=== PATIENT | male | born 1955 | race Caucasian/White ===

== ENCOUNTER 2018-04-22 08:25 | Emergency (ER) | payer BC, OTHER ==
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
== END 2018-04-22 09:45 | disposition home or self-care (01) ==
LOC: ERS 08:25
DX: S53.402A Unspecified sprain of left elbow, initial encounter (principal); E78.5 Hyperlipidemia, unspecified; I10 Essential (primary) hypertension; K21.9 Gastro-esophageal reflux disease without esophagitis; E11.9 Type 2 diabetes mellitus without complications; Z87.891 Personal history of nicotine dependence; Z79.899 Other long term (current) drug therapy; Z79.84 Long term (current) use of oral hypoglycemic drugs; V89.2XXA Person injured in unspecified motor-vehicle accident, traffic, initial encounter; W22.11XA Striking against or struck by driver side automobile airbag, initial encounter

== ENCOUNTER 2021-02-11 08:36 | Outpatient (CLI) | payer MEDICARE ==
[2021-02-11 12:01] LABS: #Basophils 0.1 10x3/uL (0.0-0.2); #Eosinphils 0.2 10x3/uL (0.0-0.5); #Neutrophils 4.9 10x3/uL (1.5-8.4); %Basophils 0.5 % (0.0-2.0); %Eosinophils 1.7 % (0.0-6.0); %Lymphocytes 32.5 % (18.0-47.0); %Monocytes 10.6 % (0.0-10.0); %Neutrophils 53.6 % (40.0-75.0); Hemoglobin 16.7 g/dL (13.5-17.5); Mean Corpuscular HGB CONC 33.6 g/dL (32.0-36.0); Mean Corpuscular Hemoglobin 32.6 pg (27.0-33.0); Mean Corpuscular Volume 96.9 fl (81.2-95.1); Mean Platelet Volume 10.7 fl (7.4-10.4); Platelet Count 244 10x3/uL (150-450); RBC Distribution Width 11.5 % (11.5-14.5); Red Blood Cell (RBC) Count 5.13 10x6/uL (4.32-5.72); White Blood Cell (WBC) Count 9.2 10x3/uL (3.5-10.5)
[2021-02-11 12:20] LABS: Anion Gap 16 mmol/L (10-20); BUN (Urea Nitrogen) 17 mg/dL (8.4-25.7); Calc. Creatinine Clearance 0 mL/min (70-130); Calcium 10.1 mg/dL (7.8-10.44); Carbon Dioxide 27 mmol/L (23-31); Chloride 99 mmol/L (98-107); Glucose 152 mg/dL (80-115); Potassium 5.2 mmol/L (3.5-5.1); Sodium 137 mmol/L (136-145)
[2021-02-12 12:53] LABS: SARS-CoV-2 PCR by NAA Not Detected (NotDetected)
== END 2021-02-11 08:37 | disposition home or self-care (01) ==
LOC: LABBT 08:36
PROVIDERS: ATTEND Specialist
DX: Z01.818 Encounter for other preprocedural examination (principal); K42.9 Umbilical hernia without obstruction or gangrene; Z20.822 Contact with and (suspected) exposure to COVID-19
CPT/HCPCS: 80048; 85025; 93005; U0003; U0005; 93010

== ENCOUNTER 2021-02-16 10:06 | Day surgery (SDC) | payer MEDICARE ==
[2021-02-15 10:41] VITALS: BMI 34.7
[2021-02-16] MEDS ORDERED: Gabapentin 300 MG CAP ONE (10:25)
[2021-02-16] MEDS ORDERED: Ketorolac Tromethamine 30 MG/ML VIAL ONE (10:26)
[2021-02-16] MEDS ORDERED: Acetaminophen 500 MG TAB ONE (10:26)
[2021-02-16] MEDS ORDERED: Bupivacaine 0.25% HCL 30 ML VIAL ONE (10:49)
[2021-02-16] MEDS ORDERED: Lidocaine 1% w/Epinephrine 1:100K 20 ML VIAL ONE (10:49)
[2021-02-16] MEDS ORDERED: Fentanyl 100 MCG/2 ML VIAL ONE (11:19)
[2021-02-16] MEDS ORDERED: Glycopyrrolate 0.2 MG/ML 5 ML SYRINGE ONE (11:55)
[2021-02-16] MEDS ORDERED: Lidocaine 1% PF 5 ML VIAL ONE (11:55)
[2021-02-16] MEDS ORDERED: Rocuronium Bromide 10 MG/ML (10ML VIAL) ONE (11:55)
[2021-02-16] MEDS ORDERED: Dexamethasone 20 MG/5 ML VIAL ONE (11:55)
[2021-02-16] MEDS ORDERED: Ondansetron PF 4 MG/2 ML Vial ONE (11:55)
[2021-02-16] MEDS ORDERED: HYDROcodone/Acetaminophen 5/325 mg Tablet ONE (15:08)
== END 2021-02-16 15:35 | disposition home or self-care (01) ==
LOC: SDC 10:06
PROVIDERS: ATTEND Specialist
PROC: 0WUF4JZ Supplement Abdominal Wall with Synthetic Substitute, Percutaneous Endoscopic Approach (ICD-10-PCS; principal; 2021-02-16)
DX: K42.9 Umbilical hernia without obstruction or gangrene (principal); I10 Essential (primary) hypertension; E78.5 Hyperlipidemia, unspecified; E11.9 Type 2 diabetes mellitus without complications; E66.9 Obesity, unspecified; Z68.34 Body mass index [BMI] 34.0-34.9, adult; Z87.891 Personal history of nicotine dependence; Z79.84 Long term (current) use of oral hypoglycemic drugs; Z79.899 Other long term (current) drug therapy
CPT/HCPCS: C1781; J0690; J1100; J1885; J2405; J3010; S0020

== ENCOUNTER 2021-08-16 17:19 | Inpatient (IN) | payer MEDICARE ==
[2021-08-16] MEDS ORDERED: Acetaminophen 500 MG TAB ONE (17:38)
[2021-08-16] MEDS ORDERED: Ondansetron PF 4 MG/2 ML Vial ONE (17:38)
[2021-08-16] MEDS ORDERED: Dexamethasone 10 MG/ML VIAL ONE (17:38)
[2021-08-16 17:53] LABS: #Basophils 0.1 thou/uL (0.0-0.2); #Lymphocytes 1.2 thou/uL (1.20-3.40); #Neutrophils 8.1 thou/uL (1.40-6.50); %Basophils 0.5 % (0.0-1.0); %Eosinophils 0.1 % (0.0-10.0); %Lymphocytes 11.4 % (21.0-51.0); %Monocytes 9.3 % (0.0-10.0); %Neutrophils 78.7 % (42.0-75.0); Hemoglobin 16.8 g/dL (14.0-18.0); Mean Corpuscular HGB CONC 34.1 g/dL (32.0-36.0); Mean Corpuscular Hemoglobin 32.6 pg (27.0-31.0); Mean Corpuscular Volume 95.7 fL (78.0-98.0); Mean Platelet Volume 8.3 fL (7.4-10.4); Platelet Count 155 thou/uL (130-400); RBC Distribution Width 11.3 % (11.5-14.5); Red Blood Cell (RBC) Count 5.13 mill/uL (4.70-6.10); White Blood Cell (WBC) Count 10.3 thou/uL (4.8-10.8)
[2021-08-16 18:09] LABS: Actual Bicarbonate (HCO3v) 16 mEq/L (22-28); Analyzer IN Cardio ER; Base Excess -6.3 mEq/L (-2.0 to +3.0); Calcium, Ionized (venous) 0.99 mmol/L (1.16-1.32); Chloride (VBG) 89 mmol/L (98-106); Hemoglobin (Hb) 16.9 g/dL (12.6-17.4); Potassium (VBG) 4.42 mmol/L (3.70-5.30); Sodium 121.5 mmol/L (133-146); pH (venous) 7.41 (7.32-7.43)
[2021-08-16 18:16] LABS: ALT (SGPT) 29 U/L (8-55); AST (SGOT) 54 U/L (5-34); Albumin 3.9 g/dL (3.4-4.8); Alkaline Phosphatase 38 U/L (40-110); Anion Gap 19 mmol/L (10-20); BUN (Urea Nitrogen) 56 mg/dL (8.4-25.7); Bilirubin, Total 0.7 mg/dL (0.2-1.2); Calc. Creatinine Clearance 0 mL/min (70-130); Calcium 8.7 mg/dL (7.8-10.44); Carbon Dioxide 18 mmol/L (23-31); Chloride 91 mmol/L (98-107); Glucose 118 mg/dL (80-115); Magnesium 2.1 mg/dL (1.6-2.6); Potassium 4.9 mmol/L (3.5-5.1); Protein, Total 6.9 g/dL (5.8-8.1); Sodium 123 mmol/L (136-145)
[2021-08-16] MEDS ORDERED: Enoxaparin Sodium 100 MG/ML SYRINGE ONE (19:18)
[2021-08-16 19:37] LABS: SARS-CoV-2 NAA Rapid Test DETECTED (NotDetected)
[2021-08-16] MEDS ORDERED: Calcium Carbonate 500 MG ChewTAB PO PRN (19:45)
[2021-08-16] MEDS ORDERED: Ondansetron ODT 4 MG TAB PO PRN (19:45)
[2021-08-16] MEDS ORDERED: Dextrose 5% in Water 1,000 ML IV PRN (19:45)
[2021-08-16] MEDS ORDERED: Acetaminophen 650 MG Suppository PR PRN (19:45)
[2021-08-16] MEDS: Lactated Ringer's 1,000 ML IV SCH (21:38)
[2021-08-17] MEDS: Lactated Ringer's 1,000 ML IV SCH ×4 (04:45→21:37)
[2021-08-17] MEDS: HumaLOG 300 UNITS/3 ML VIAL SC PRN ×4 (05:46→21:39)
[2021-08-17 08:16] LABS: #Monocytes 0.5 thou/uL (0.11-0.59); %Basophils 0.2 % (0.0-1.0); %Eosinophils 0.6 % (0.0-10.0); %Lymphocytes 14.8 % (21.0-51.0); %Monocytes 7.6 % (0.0-10.0); %Neutrophils 76.7 % (42.0-75.0); Hemoglobin 15.7 g/dL (14.0-18.0); Mean Corpuscular HGB CONC 35.1 g/dL (32.0-36.0); Mean Corpuscular Hemoglobin 33.6 pg (27.0-31.0); Mean Corpuscular Volume 95.7 fL (78.0-98.0); Mean Platelet Volume 8.3 fL (7.4-10.4); Platelet Count 163 thou/uL (130-400); RBC Distribution Width 11.4 % (11.5-14.5); Red Blood Cell (RBC) Count 4.66 mill/uL (4.70-6.10); White Blood Cell (WBC) Count 6.5 thou/uL (4.8-10.8)
[2021-08-17 08:35] LABS: ALT (SGPT) 27 U/L (8-55); AST (SGOT) 45 U/L (5-34); Albumin 3.4 g/dL (3.4-4.8); Alkaline Phosphatase 34 U/L (40-110); Anion Gap 22 mmol/L (10-20); BUN (Urea Nitrogen) 60 mg/dL (8.4-25.7); Bilirubin, Total 0.5 mg/dL (0.2-1.2); Calc. Creatinine Clearance 40 mL/min (70-130); Calcium 8.6 mg/dL (7.8-10.44); Carbon Dioxide 12 mmol/L (23-31); Chloride 98 mmol/L (98-107); Globulin 3.5 g/dL (2.4-3.5); Glucose 248 mg/dL (80-115); Potassium 4.8 mmol/L (3.5-5.1); Protein, Total 6.9 g/dL (5.8-8.1); Sodium 127 mmol/L (136-145)
[2021-08-17] MEDS: Dexamethasone 4 MG TAB PO SCH (08:37)
[2021-08-17] MEDS: Enoxaparin Sodium 40 MG/0.4 ML SYRINGE SC SCH (08:38)
[2021-08-17] MEDS: guaiFENesin/Codeine 200 mg/20 mg 10 ml Cup PO PRN ×2 (12:58→18:28)
[2021-08-17] MEDS: Acetaminophen 325 MG TAB PO PRN (13:00)
[2021-08-17] MEDS: Atorvastatin Calcium 20 MG TAB PO SCH (21:30)
[2021-08-18] MEDS: guaiFENesin/Codeine 200 mg/20 mg 10 ml Cup PO PRN ×3 (00:05→21:29)
[2021-08-18] MEDS: Acetaminophen 325 MG TAB PO PRN ×3 (00:20→17:59)
[2021-08-18] MEDS: Albuterol 200 PUFF (6.7GM INHALER) INH PRN (05:56)
[2021-08-18] MEDS: HumaLOG 300 UNITS/3 ML VIAL SC PRN ×3 (05:57→17:59)
[2021-08-18] MEDS: Lactated Ringer's 1,000 ML IV SCH ×2 (06:02→13:23)
[2021-08-18 07:40] LABS: Hemoglobin 14.9 g/dL (14.0-18.0); Mean Corpuscular HGB CONC 33.6 g/dL (32.0-36.0); Mean Corpuscular Hemoglobin 32.6 pg (27.0-31.0); Mean Corpuscular Volume 96.9 fL (78.0-98.0); Mean Platelet Volume 7.6 fL (7.4-10.4); Platelet Count 210 thou/uL (130-400); RBC Distribution Width 11.4 % (11.5-14.5); Red Blood Cell (RBC) Count 4.59 mill/uL (4.70-6.10); White Blood Cell (WBC) Count 14.1 thou/uL (4.8-10.8)
[2021-08-18 07:48] LABS: ALT (SGPT) 26 U/L (8-55); AST (SGOT) 48 U/L (5-34); Albumin 3.2 g/dL (3.4-4.8); Alkaline Phosphatase 39 U/L (40-110); Anion Gap 18 mmol/L (10-20); BUN (Urea Nitrogen) 38 mg/dL (8.4-25.7); Bilirubin, Total 0.6 mg/dL (0.2-1.2); Calc. Creatinine Clearance 65 mL/min (70-130); Carbon Dioxide 19 mmol/L (23-31); Chloride 99 mmol/L (98-107); Globulin 3.3 g/dL (2.4-3.5); Glucose 215 mg/dL (80-115); Potassium 4.6 mmol/L (3.5-5.1); Protein, Total 6.5 g/dL (5.8-8.1); Sodium 131 mmol/L (136-145)
[2021-08-18 08:40] LABS: Band 33 % (5-11); Lymphocytes 6 % (21-51); MDiff Complete? YES; Monocytes 2 % (0-10); Neutrophil 55 % (42-75); Platelet Morphology Comment Appears Adequate; RBC Morphology Normal; Reactive Lymphocytes 4 % (0-10)
[2021-08-18] MEDS: Dexamethasone 4 MG TAB PO SCH (09:40)
[2021-08-18] MEDS: Enoxaparin Sodium 40 MG/0.4 ML SYRINGE SC SCH (09:41)
[2021-08-18] MEDS ORDERED: REMDESIVIR 200 MG in Sodium Chloride 0.9% 250 ML 210 ML IV SCH (13:00)
[2021-08-18] MEDS ORDERED: BARICITINIB 2 MG TAB PO SCH (14:00)
[2021-08-18] MEDS: Atorvastatin Calcium 20 MG TAB PO SCH (21:29)
[2021-08-18] MEDS ORDERED: diphenhydrAMINE 25 MG CAP PO PRN (22:53)
[2021-08-19 03:27] LABS: #Lymphocytes 0.7 thou/uL (1.20-3.40); #Monocytes 0.7 thou/uL (0.11-0.59); #Neutrophils 12.7 thou/uL (1.40-6.50); %Eosinophils 0.1 % (0.0-10.0); %Lymphocytes 5.2 % (21.0-51.0); %Monocytes 4.7 % (0.0-10.0); Hemoglobin 15.4 g/dL (14.0-18.0); Mean Corpuscular HGB CONC 33.9 g/dL (32.0-36.0); Mean Corpuscular Hemoglobin 33.7 pg (27.0-31.0); Mean Corpuscular Volume 99.5 fL (78.0-98.0); Mean Platelet Volume 7.2 fL (7.4-10.4); Platelet Count 248 thou/uL (130-400); RBC Distribution Width 11.6 % (11.5-14.5); Red Blood Cell (RBC) Count 4.58 mill/uL (4.70-6.10); White Blood Cell (WBC) Count 14.1 thou/uL (4.8-10.8)
[2021-08-19 03:49] LABS: ALT (SGPT) 25 U/L (8-55); AST (SGOT) 48 U/L (5-34); Albumin 3.4 g/dL (3.4-4.8); Alkaline Phosphatase 51 U/L (40-110); Anion Gap 17 mmol/L (10-20); BUN (Urea Nitrogen) 30 mg/dL (8.4-25.7); Bilirubin, Direct 0.4 mg/dL (0.1-0.3); Bilirubin, Total 0.7 mg/dL (0.2-1.2); Calc. Creatinine Clearance 88 mL/min (70-130); Calcium 9.1 mg/dL (7.8-10.44); Carbon Dioxide 23 mmol/L (23-31); Chloride 102 mmol/L (98-107); Globulin 3.3 g/dL (2.4-3.5); Glucose 179 mg/dL (80-115); Potassium 4.6 mmol/L (3.5-5.1); Protein, Total 6.7 g/dL (5.8-8.1); Sodium 137 mmol/L (136-145)
[2021-08-19] MEDS: Lactated Ringer's 1,000 ML IV SCH ×2 (04:32→04:33)
[2021-08-19] MEDS: HumaLOG 300 UNITS/3 ML VIAL SC PRN ×3 (05:52→15:52)
[2021-08-19] MEDS ORDERED: Sodium Chloride 0.65% Nasal 44 ML BOT EA NARE PRN (08:23)
[2021-08-19] MEDS ORDERED: Lorazepam 0.5 MG TAB PO PRN (08:24)
[2021-08-19] MEDS ORDERED: Lantus 1000 UNITS/10 ML VIAL SC SCH (09:00)
[2021-08-19] MEDS: REMDESIVIR 100 MG in Sodium Chloride 0.9% 250 ML 230 ML IV SCH (09:56)
[2021-08-19] MEDS: Enoxaparin Sodium 40 MG/0.4 ML SYRINGE SC SCH (09:58)
[2021-08-19] MEDS: BARICITINIB 2 MG TAB PO SCH (09:58)
[2021-08-19] MEDS ORDERED: Dexamethasone 4 mg/ml Vial ONE (10:05)
[2021-08-19] MEDS: Dexamethasone 4 MG TAB PO SCH (10:18)
[2021-08-19] MEDS ORDERED: Polyvinyl Alcohol 1.4%/Povidone 0.6% Opth Drops EA EYE PRN (12:52)
[2021-08-19] MEDS: Lantus 1000 UNITS/10 ML VIAL SC SCH ×2 (14:45→16:08)
[2021-08-19] MEDS: Atorvastatin Calcium 20 MG TAB PO SCH (20:05)
[2021-08-19] MEDS: diphenhydrAMINE 25 MG CAP PO SCH (20:05)
[2021-08-19] MEDS: Melatonin 3 MG TAB PO SCH (20:05)
[2021-08-19] MEDS: Acetaminophen 325 MG TAB PO PRN (23:38)
[2021-08-19] MEDS: guaiFENesin/Codeine 200 mg/20 mg 10 ml Cup PO PRN (23:53)
[2021-08-20 04:56] LABS: ALT (SGPT) 39 U/L (8-55); AST (SGOT) 48 U/L (5-34); Albumin 3.2 g/dL (3.4-4.8); Alkaline Phosphatase 60 U/L (40-110); Anion Gap 17 mmol/L (10-20); BUN (Urea Nitrogen) 34 mg/dL (8.4-25.7); Bilirubin, Total 0.7 mg/dL (0.2-1.2); Calc. Creatinine Clearance 86 mL/min (70-130); Calcium 9.4 mg/dL (7.8-10.44); Carbon Dioxide 22 mmol/L (23-31); Chloride 103 mmol/L (98-107); Globulin 3.4 g/dL (2.4-3.5); Glucose 221 mg/dL (80-115); Potassium 4.6 mmol/L (3.5-5.1); Protein, Total 6.6 g/dL (5.8-8.1); Sodium 137 mmol/L (136-145)
[2021-08-20 05:33] LABS: Band 14 % (5-11); Hemoglobin 15.3 g/dL (14.0-18.0); Lymphocytes 10 % (21-51); MDiff Complete? YES; Macrocytosis SLIGHT = 6-15 cells (100X) (0-5/hpf); Mean Corpuscular HGB CONC 33.7 g/dL (32.0-36.0); Mean Corpuscular Hemoglobin 33.5 pg (27.0-31.0); Mean Corpuscular Volume 99.4 fL (78.0-98.0); Mean Platelet Volume 7.2 fL (7.4-10.4); Monocytes 5 % (0-10); Myelocyte 1 % (0-0); Neutrophil 70 % (42-75); Platelet Count 275 thou/uL (130-400); Platelet Morphology Comment Appears Adequate; RBC Distribution Width 11.5 % (11.5-14.5); Red Blood Cell (RBC) Count 4.58 mill/uL (4.70-6.10); Schistocytes SLIGHT = 2-5 cells (100X) (0-1/hpf); Tear Drops SLIGHT = 2-5 cells (100X) (0-1/hpf); White Blood Cell (WBC) Count 10.5 thou/uL (4.8-10.8)
[2021-08-20] MEDS: HumaLOG 300 UNITS/3 ML VIAL SC PRN ×4 (06:12→20:46)
[2021-08-20] MEDS: Dexamethasone 4 MG TAB PO SCH (08:42)
[2021-08-20] MEDS: Lisinopril/Hydrochlorothiazide 20 mg/12.5 mg Tablet PO SCH (08:43)
[2021-08-20] MEDS: Enoxaparin Sodium 40 MG/0.4 ML SYRINGE SC SCH (08:43)
[2021-08-20] MEDS: BARICITINIB 2 MG TAB PO SCH (08:43)
[2021-08-20] MEDS: REMDESIVIR 100 MG in Sodium Chloride 0.9% 250 ML 230 ML IV SCH (08:44)
[2021-08-20] MEDS ORDERED: Lantus 1000 UNITS/10 ML VIAL SC SCH (16:00)
[2021-08-20] MEDS: Atorvastatin Calcium 20 MG TAB PO SCH (20:36)
[2021-08-20] MEDS: diphenhydrAMINE 25 MG CAP PO SCH (20:36)
[2021-08-20] MEDS: Melatonin 3 MG TAB PO SCH (20:37)
[2021-08-20] MEDS: Acetaminophen 325 MG TAB PO PRN (20:37)
[2021-08-21 03:31] LABS: #Basophils 0.1 thou/uL (0.0-0.2); #Lymphocytes 1.2 thou/uL (1.20-3.40); #Neutrophils 12.8 thou/uL (1.40-6.50); %Basophils 0.4 % (0.0-1.0); %Eosinophils 0.2 % (0.0-10.0); %Lymphocytes 7.7 % (21.0-51.0); %Monocytes 6.4 % (0.0-10.0); %Neutrophils 85.3 % (42.0-75.0); Hemoglobin 17.4 g/dL (14.0-18.0); Mean Corpuscular HGB CONC 34.1 g/dL (32.0-36.0); Mean Corpuscular Hemoglobin 33.9 pg (27.0-31.0); Mean Corpuscular Volume 99.3 fL (78.0-98.0); Mean Platelet Volume 7.1 fL (7.4-10.4); Platelet Count 248 thou/uL (130-400); RBC Distribution Width 11.7 % (11.5-14.5); Red Blood Cell (RBC) Count 5.15 mill/uL (4.70-6.10)
[2021-08-21 03:47] LABS: ALT (SGPT) 45 U/L (8-55); AST (SGOT) 45 U/L (5-34); Albumin 3.4 g/dL (3.4-4.8); Alkaline Phosphatase 75 U/L (40-110); Anion Gap 16 mmol/L (10-20); BUN (Urea Nitrogen) 31 mg/dL (8.4-25.7); Bilirubin, Total 0.9 mg/dL (0.2-1.2); Calc. Creatinine Clearance 95 mL/min (70-130); Calcium 9.3 mg/dL (7.8-10.44); Carbon Dioxide 23 mmol/L (23-31); Chloride 100 mmol/L (98-107); Globulin 3.4 g/dL (2.4-3.5); Glucose 184 mg/dL (80-115); Potassium 4.2 mmol/L (3.5-5.1); Protein, Total 6.8 g/dL (5.8-8.1); Sodium 135 mmol/L (136-145)
[2021-08-21] MEDS: guaiFENesin/Codeine 200 mg/20 mg 10 ml Cup PO PRN ×2 (04:00→20:30)
[2021-08-21] MEDS: HumaLOG 300 UNITS/3 ML VIAL SC PRN ×4 (06:16→20:19)
[2021-08-21] MEDS: Lisinopril/Hydrochlorothiazide 20 mg/12.5 mg Tablet PO SCH (08:34)
[2021-08-21] MEDS: REMDESIVIR 100 MG in Sodium Chloride 0.9% 250 ML 230 ML IV SCH (08:34)
[2021-08-21] MEDS: BARICITINIB 2 MG TAB PO SCH (08:34)
[2021-08-21] MEDS: Dexamethasone 4 MG TAB PO SCH (08:35)
[2021-08-21] MEDS: Acetaminophen 325 MG TAB PO PRN ×3 (08:36→20:17)
[2021-08-21] MEDS: Enoxaparin Sodium 40 MG/0.4 ML SYRINGE SC SCH (08:37)
[2021-08-21] MEDS ORDERED: Lantus 1000 UNITS/10 ML VIAL SC SCH (09:00)
[2021-08-21] MEDS ORDERED: Cyclobenzaprine 10 MG TAB PO SCH (12:15)
[2021-08-21] MEDS: diphenhydrAMINE 25 MG CAP PO SCH (20:17)
[2021-08-21] MEDS: Atorvastatin Calcium 20 MG TAB PO SCH (20:17)
[2021-08-21] MEDS: Melatonin 3 MG TAB PO SCH (20:17)
[2021-08-22] MEDS: Acetaminophen 325 MG TAB PO PRN ×2 (02:13→07:57)
[2021-08-22] MEDS: HumaLOG 300 UNITS/3 ML VIAL SC PRN ×4 (06:26→20:01)
[2021-08-22 07:27] LABS: #Eosinphils 0.1 thou/uL (0.0-0.7); #Lymphocytes 1.2 thou/uL (1.20-3.40); #Monocytes 0.2 thou/uL (0.11-0.59); #Neutrophils 14.2 thou/uL (1.40-6.50); %Eosinophils 0.6 % (0.0-10.0); %Lymphocytes 7.8 % (21.0-51.0); %Monocytes 1.5 % (0.0-10.0); %Neutrophils 90.2 % (42.0-75.0); Hemoglobin 16.9 g/dL (14.0-18.0); Mean Corpuscular HGB CONC 34.1 g/dL (32.0-36.0); Mean Corpuscular Volume 99.9 fL (78.0-98.0); Mean Platelet Volume 7.3 fL (7.4-10.4); Platelet Count 171 thou/uL (130-400); RBC Distribution Width 11.4 % (11.5-14.5); Red Blood Cell (RBC) Count 4.98 mill/uL (4.70-6.10); White Blood Cell (WBC) Count 15.7 thou/uL (4.8-10.8)
[2021-08-22] MEDS: Enoxaparin Sodium 40 MG/0.4 ML SYRINGE SC SCH (07:41)
[2021-08-22] MEDS: REMDESIVIR 100 MG in Sodium Chloride 0.9% 250 ML 230 ML IV SCH (07:41)
[2021-08-22] MEDS: Lisinopril/Hydrochlorothiazide 20 mg/12.5 mg Tablet PO SCH (07:41)
[2021-08-22] MEDS: BARICITINIB 2 MG TAB PO SCH (07:41)
[2021-08-22] MEDS: Dexamethasone 4 MG TAB PO SCH ×2 (07:41→20:01)
[2021-08-22] MEDS: Lantus 1000 UNITS/10 ML VIAL SC SCH (07:45)
[2021-08-22 07:49] LABS: ALT (SGPT) 50 U/L (8-55); AST (SGOT) 46 U/L (5-34); Albumin 3.4 g/dL (3.4-4.8); Alkaline Phosphatase 76 U/L (40-110); Anion Gap 14 mmol/L (10-20); BUN (Urea Nitrogen) 28 mg/dL (8.4-25.7); Bilirubin, Direct 0.6 mg/dL (0.1-0.3); Bilirubin, Total 1.1 mg/dL (0.2-1.2); Calc. Creatinine Clearance 90 mL/min (70-130); Calcium 9.3 mg/dL (7.8-10.44); Carbon Dioxide 25 mmol/L (23-31); Chloride 95 mmol/L (98-107); Globulin 3.7 g/dL (2.4-3.5); Glucose 213 mg/dL (80-115); Potassium 4.6 mmol/L (3.5-5.1); Protein, Total 7.1 g/dL (5.8-8.1); Sodium 129 mmol/L (136-145)
[2021-08-22] MEDS ORDERED: Dexamethasone 4 MG TAB PO SCH ×3 (08:00→11:00)
[2021-08-22] MEDS: Atorvastatin Calcium 20 MG TAB PO SCH (20:00)
[2021-08-22] MEDS: guaiFENesin/Codeine 200 mg/20 mg 10 ml Cup PO PRN (20:00)
[2021-08-22] MEDS: Melatonin 3 MG TAB PO SCH (20:01)
[2021-08-22] MEDS: diphenhydrAMINE 25 MG CAP PO SCH (20:01)
[2021-08-23 04:17] LABS: #Eosinphils 0.1 thou/uL (0.0-0.7); #Lymphocytes 0.9 thou/uL (1.20-3.40); #Monocytes 0.3 thou/uL (0.11-0.59); #Neutrophils 14.3 thou/uL (1.40-6.50); %Basophils 0.3 % (0.0-1.0); %Eosinophils 0.5 % (0.0-10.0); %Lymphocytes 5.4 % (21.0-51.0); %Neutrophils 91.8 % (42.0-75.0); Hemoglobin 17.2 g/dL (14.0-18.0); Mean Corpuscular HGB CONC 33.9 g/dL (32.0-36.0); Mean Corpuscular Hemoglobin 33.7 pg (27.0-31.0); Mean Corpuscular Volume 99.4 fL (78.0-98.0); Mean Platelet Volume 7.7 fL (7.4-10.4); Platelet Count 137 thou/uL (130-400); RBC Distribution Width 11.3 % (11.5-14.5); White Blood Cell (WBC) Count 15.6 thou/uL (4.8-10.8)
[2021-08-23 04:44] LABS: ALT (SGPT) 38 U/L (8-55); AST (SGOT) 29 U/L (5-34); Albumin 3.1 g/dL (3.4-4.8); Alkaline Phosphatase 61 U/L (40-110); Anion Gap 17 mmol/L (10-20); BUN (Urea Nitrogen) 26 mg/dL (8.4-25.7); Bilirubin, Total 0.9 mg/dL (0.2-1.2); Calc. Creatinine Clearance 103 mL/min (70-130); Calcium 9.1 mg/dL (7.8-10.44); Carbon Dioxide 23 mmol/L (23-31); Chloride 95 mmol/L (98-107); Globulin 3.8 g/dL (2.4-3.5); Glucose 211 mg/dL (80-115); Potassium 4.8 mmol/L (3.5-5.1); Protein, Total 6.9 g/dL (5.8-8.1); Sodium 130 mmol/L (136-145)
[2021-08-23] MEDS: HumaLOG 300 UNITS/3 ML VIAL SC PRN ×2 (05:54→21:14)
[2021-08-23] MEDS: Dexamethasone 4 MG TAB PO SCH ×2 (07:49→21:13)
[2021-08-23] MEDS: Lisinopril 20 MG TAB PO SCH (07:49)
[2021-08-23] MEDS: BARICITINIB 2 MG TAB PO SCH (07:49)
[2021-08-23] MEDS: Lantus 1000 UNITS/10 ML VIAL SC SCH (07:50)
[2021-08-23] MEDS: Acetaminophen 325 MG TAB PO PRN (07:50)
[2021-08-23] MEDS: Enoxaparin Sodium 40 MG/0.4 ML SYRINGE SC SCH (07:50)
[2021-08-23] MEDS ORDERED: Polyethylene Glycol 3350 17 GM Packet PO PRN (09:55)
[2021-08-23] MEDS: HumaLOG 300 UNITS/3 ML VIAL SC SCH ×2 (11:31→16:46)
[2021-08-23] MEDS: guaiFENesin/Codeine 200 mg/20 mg 10 ml Cup PO PRN ×2 (12:10→21:13)
[2021-08-23] MEDS: diphenhydrAMINE 25 MG CAP PO SCH (21:13)
[2021-08-23] MEDS: Melatonin 3 MG TAB PO SCH (21:13)
[2021-08-23] MEDS: Senokot S 8.6-50 MG TAB PO SCH (21:13)
[2021-08-23] MEDS: Atorvastatin Calcium 20 MG TAB PO SCH (21:13)
[2021-08-24 04:52] LABS: ALT (SGPT) 32 U/L (8-55); AST (SGOT) 23 U/L (5-34); Alkaline Phosphatase 57 U/L (40-110); Anion Gap 14 mmol/L (10-20); BUN (Urea Nitrogen) 30 mg/dL (8.4-25.7); Band 5 % (5-11); Bilirubin, Total 0.6 mg/dL (0.2-1.2); Calc. Creatinine Clearance 98 mL/min (70-130); Calcium 8.9 mg/dL (7.8-10.44); Carbon Dioxide 25 mmol/L (23-31); Chloride 94 mmol/L (98-107); Globulin 3.6 g/dL (2.4-3.5); Glucose 240 mg/dL (80-115); Lymphocytes 4 % (21-51); MDiff Complete? YES; Mean Corpuscular HGB CONC 33.4 g/dL (32.0-36.0); Mean Corpuscular Hemoglobin 33.2 pg (27.0-31.0); Mean Corpuscular Volume 99.4 fL (78.0-98.0); Mean Platelet Volume 7.8 fL (7.4-10.4); Monocytes 2 % (0-10); Myelocyte 1 % (0-0); Neutrophil 88 % (42-75); Platelet Count 186 thou/uL (130-400); Platelet Morphology Comment Appears Adequate; Potassium 5.1 mmol/L (3.5-5.1); Protein, Total 6.6 g/dL (5.8-8.1); RBC Distribution Width 11.4 % (11.5-14.5); RBC Morphology Normal; Red Blood Cell (RBC) Count 4.82 mill/uL (4.70-6.10); Sodium 128 mmol/L (136-145); White Blood Cell (WBC) Count 17.7 thou/uL (4.8-10.8)
[2021-08-24] MEDS: HumaLOG 300 UNITS/3 ML VIAL SC PRN ×3 (06:07→20:19)
[2021-08-24] MEDS ORDERED: Lantus 1000 UNITS/10 ML VIAL SC SCH (09:00)
[2021-08-24] MEDS: Senokot S 8.6-50 MG TAB PO SCH ×3 (09:00→20:35)
[2021-08-24] MEDS: HumaLOG 300 UNITS/3 ML VIAL SC SCH ×3 (09:29→16:22)
[2021-08-24] MEDS: BARICITINIB 2 MG TAB PO SCH (09:30)
[2021-08-24] MEDS: Lisinopril 20 MG TAB PO SCH (09:31)
[2021-08-24] MEDS: Enoxaparin Sodium 40 MG/0.4 ML SYRINGE SC SCH (09:33)
[2021-08-24] MEDS: Dexamethasone 4 MG TAB PO SCH ×2 (09:36→20:19)
[2021-08-24] MEDS: guaiFENesin/Codeine 200 mg/20 mg 10 ml Cup PO PRN (11:44)
[2021-08-24] MEDS: Acetaminophen 325 MG TAB PO PRN (18:23)
[2021-08-24] MEDS: Melatonin 3 MG TAB PO SCH (20:18)
[2021-08-24] MEDS: Atorvastatin Calcium 20 MG TAB PO SCH (20:18)
[2021-08-24] MEDS: diphenhydrAMINE 25 MG CAP PO SCH (20:19)
[2021-08-25 04:12] LABS: #Lymphocytes 0.7 thou/uL (1.20-3.40); #Monocytes 0.5 thou/uL (0.11-0.59); #Neutrophils 14.8 thou/uL (1.40-6.50); %Basophils 0.2 % (0.0-1.0); %Eosinophils 0.2 % (0.0-10.0); %Lymphocytes 4.6 % (21.0-51.0); %Monocytes 3.1 % (0.0-10.0); %Neutrophils 91.9 % (42.0-75.0); Hemoglobin 16.2 g/dL (14.0-18.0); Mean Corpuscular HGB CONC 32.6 g/dL (32.0-36.0); Mean Corpuscular Hemoglobin 32.4 pg (27.0-31.0); Mean Corpuscular Volume 99.5 fL (78.0-98.0); Mean Platelet Volume 7.9 fL (7.4-10.4); Platelet Count 195 thou/uL (130-400); RBC Distribution Width 11.3 % (11.5-14.5); White Blood Cell (WBC) Count 16.1 thou/uL (4.8-10.8)
[2021-08-25 04:38] LABS: ALT (SGPT) 29 U/L (8-55); AST (SGOT) 20 U/L (5-34); Albumin 3.1 g/dL (3.4-4.8); Alkaline Phosphatase 53 U/L (40-110); Anion Gap 13 mmol/L (10-20); BUN (Urea Nitrogen) 31 mg/dL (8.4-25.7); Bilirubin, Total 0.6 mg/dL (0.2-1.2); Calc. Creatinine Clearance 98 mL/min (70-130); Calcium 8.9 mg/dL (7.8-10.44); Carbon Dioxide 27 mmol/L (23-31); Chloride 95 mmol/L (98-107); Globulin 3.5 g/dL (2.4-3.5); Glucose 228 mg/dL (80-115); Potassium 4.7 mmol/L (3.5-5.1); Protein, Total 6.6 g/dL (5.8-8.1); Sodium 130 mmol/L (136-145)
[2021-08-25] MEDS: HumaLOG 300 UNITS/3 ML VIAL SC PRN ×4 (06:12→20:38)
[2021-08-25] MEDS: HumaLOG 300 UNITS/3 ML VIAL SC SCH ×3 (07:52→16:57)
[2021-08-25] MEDS: Dexamethasone 4 MG TAB PO SCH ×2 (07:53→20:37)
[2021-08-25] MEDS: Lisinopril 20 MG TAB PO SCH (07:53)
[2021-08-25] MEDS: BARICITINIB 2 MG TAB PO SCH (07:53)
[2021-08-25] MEDS: Enoxaparin Sodium 40 MG/0.4 ML SYRINGE SC SCH (07:54)
[2021-08-25] MEDS: Lantus 1000 UNITS/10 ML VIAL SC SCH (07:56)
[2021-08-25] MEDS: Senokot S 8.6-50 MG TAB PO SCH ×2 (09:31→20:37)
[2021-08-25] MEDS: Acetaminophen 325 MG TAB PO PRN (15:27)
[2021-08-25] MEDS: guaiFENesin/Codeine 200 mg/20 mg 10 ml Cup PO PRN (15:28)
[2021-08-25] MEDS: Atorvastatin Calcium 20 MG TAB PO SCH (20:37)
[2021-08-25] MEDS: diphenhydrAMINE 25 MG CAP PO SCH (20:37)
[2021-08-25] MEDS: Melatonin 3 MG TAB PO SCH (20:37)
[2021-08-26 03:52] LABS: Hemoglobin 17.1 g/dL (14.0-18.0); Mean Corpuscular HGB CONC 33.7 g/dL (32.0-36.0); Mean Corpuscular Hemoglobin 33.5 pg (27.0-31.0); Mean Corpuscular Volume 99.4 fL (78.0-98.0); Mean Platelet Volume 8.2 fL (7.4-10.4); Platelet Count 170 thou/uL (130-400); RBC Distribution Width 11.3 % (11.5-14.5); Red Blood Cell (RBC) Count 5.12 mill/uL (4.70-6.10); White Blood Cell (WBC) Count 21.3 thou/uL (4.8-10.8)
[2021-08-26 04:16] LABS: Albumin 3.2 g/dL (3.4-4.8)
[2021-08-26 04:17] LABS: Chloride 100 mmol/L (98-107); Potassium 5.3 mmol/L (3.5-5.1); Sodium 133 mmol/L (136-145)
[2021-08-26 04:18] LABS: Calcium 8.6 mg/dL (7.8-10.44); Glucose 85 mg/dL (80-115)
[2021-08-26 04:19] LABS: Globulin 3.2 g/dL (2.4-3.5); Protein, Total 6.4 g/dL (5.8-8.1)
[2021-08-26 04:20] LABS: Carbon Dioxide 20 mmol/L (23-31)
[2021-08-26 04:21] LABS: Alkaline Phosphatase 61 U/L (40-110); Bilirubin, Total 0.6 mg/dL (0.2-1.2)
[2021-08-26 04:22] LABS: Calc. Creatinine Clearance 94 mL/min (70-130)
[2021-08-26 04:23] LABS: BUN (Urea Nitrogen) 29 mg/dL (8.4-25.7)
[2021-08-26 04:24] LABS: AST (SGOT) 31 U/L (5-34)
[2021-08-26 04:25] LABS: ALT (SGPT) 32 U/L (8-55)
[2021-08-26 04:53] LABS: Anion Gap 18 mmol/L (10-20)
[2021-08-26 05:42] LABS: Band 2 % (5-11); Lymphocytes 3 % (21-51); MDiff Complete? YES; Monocytes 2 % (0-10); Neutrophil 93 % (42-75)
[2021-08-26] MEDS: HumaLOG 300 UNITS/3 ML VIAL SC SCH ×3 (08:10→16:41)
[2021-08-26] MEDS: Lantus 1000 UNITS/10 ML VIAL SC SCH (08:11)
[2021-08-26] MEDS: Senokot S 8.6-50 MG TAB PO SCH ×2 (08:12→20:04)
[2021-08-26] MEDS: Enoxaparin Sodium 40 MG/0.4 ML SYRINGE SC SCH (08:12)
[2021-08-26] MEDS: BARICITINIB 2 MG TAB PO SCH (08:12)
[2021-08-26] MEDS: Dexamethasone 4 MG TAB PO SCH ×2 (08:12→20:04)
[2021-08-26] MEDS: Lisinopril 20 MG TAB PO SCH (08:13)
[2021-08-26] MEDS: HumaLOG 300 UNITS/3 ML VIAL SC PRN ×2 (16:41→20:34)
[2021-08-26] MEDS: diphenhydrAMINE 25 MG CAP PO SCH (20:04)
[2021-08-26] MEDS: Atorvastatin Calcium 20 MG TAB PO SCH (20:04)
[2021-08-26] MEDS: Melatonin 3 MG TAB PO SCH (20:04)
[2021-08-27] MEDS: Acetaminophen 325 MG TAB PO PRN ×2 (00:35→09:06)
[2021-08-27 04:03] LABS: ALT (SGPT) 32 U/L (8-55); AST (SGOT) 26 U/L (5-34); Albumin 2.9 g/dL (3.4-4.8); Alkaline Phosphatase 52 U/L (40-110); Anion Gap 18 mmol/L (10-20); BUN (Urea Nitrogen) 27 mg/dL (8.4-25.7); Bilirubin, Total 0.5 mg/dL (0.2-1.2); Calc. Creatinine Clearance 97 mL/min (70-130); Calcium 8.8 mg/dL (7.8-10.44); Carbon Dioxide 20 mmol/L (23-31); Chloride 98 mmol/L (98-107); Globulin 3.7 g/dL (2.4-3.5); Glucose 127 mg/dL (80-115); Potassium 5.5 mmol/L (3.5-5.1); Protein, Total 6.6 g/dL (5.8-8.1); Sodium 130 mmol/L (136-145)
[2021-08-27 07:22] LABS: Hemoglobin 17.1 g/dL (14.0-18.0); Mean Corpuscular HGB CONC 32.5 g/dL (32.0-36.0); Mean Corpuscular Hemoglobin 32.3 pg (27.0-31.0); Mean Corpuscular Volume 99.4 fL (78.0-98.0); Mean Platelet Volume 7.9 fL (7.4-10.4); Platelet Count 221 thou/uL (130-400); RBC Distribution Width 11.3 % (11.5-14.5); Red Blood Cell (RBC) Count 5.29 mill/uL (4.70-6.10); White Blood Cell (WBC) Count 25.3 thou/uL (4.8-10.8)
[2021-08-27 08:38] LABS: Band 10 % (5-11); Lymphocytes 2 % (21-51); MDiff Complete? YES; Monocytes 11 % (0-10); Neutrophil 77 % (42-75)
[2021-08-27] MEDS: Dexamethasone 4 MG TAB PO SCH ×2 (09:03→20:46)
[2021-08-27] MEDS: Lisinopril 20 MG TAB PO SCH (09:04)
[2021-08-27] MEDS: Enoxaparin Sodium 40 MG/0.4 ML SYRINGE SC SCH (09:04)
[2021-08-27] MEDS: BARICITINIB 2 MG TAB PO SCH (09:05)
[2021-08-27] MEDS: HumaLOG 300 UNITS/3 ML VIAL SC SCH ×3 (09:05→17:09)
[2021-08-27] MEDS: Lantus 1000 UNITS/10 ML VIAL SC SCH (09:05)
[2021-08-27] MEDS: guaiFENesin/Codeine 200 mg/20 mg 10 ml Cup PO PRN ×2 (09:31→21:10)
[2021-08-27] MEDS: Melatonin 3 MG TAB PO SCH (20:46)
[2021-08-27] MEDS: diphenhydrAMINE 25 MG CAP PO SCH (20:46)
[2021-08-27] MEDS: Atorvastatin Calcium 20 MG TAB PO SCH (20:46)
[2021-08-28 04:01] LABS: ALT (SGPT) 35 U/L (8-55); AST (SGOT) 23 U/L (5-34); Albumin 3.1 g/dL (3.4-4.8); Alkaline Phosphatase 51 U/L (40-110); Anion Gap 11 mmol/L (10-20); BUN (Urea Nitrogen) 22 mg/dL (8.4-25.7); Bilirubin, Total 0.6 mg/dL (0.2-1.2); Calc. Creatinine Clearance 115 mL/min (70-130); Calcium 8.6 mg/dL (7.8-10.44); Carbon Dioxide 27 mmol/L (23-31); Chloride 99 mmol/L (98-107); Globulin 2.9 g/dL (2.4-3.5); Glucose 81 mg/dL (80-115); Potassium 4.3 mmol/L (3.5-5.1); Sodium 133 mmol/L (136-145)
[2021-08-28 04:14] LABS: #Basophils 0.1 thou/uL (0.0-0.2); #Eosinphils 0.1 thou/uL (0.0-0.7); #Lymphocytes 0.8 thou/uL (1.20-3.40); #Monocytes 0.5 thou/uL (0.11-0.59); #Neutrophils 22.9 thou/uL (1.40-6.50); %Basophils 0.2 % (0.0-1.0); %Eosinophils 0.2 % (0.0-10.0); %Lymphocytes 3.4 % (21.0-51.0); %Monocytes 1.9 % (0.0-10.0); %Neutrophils 94.3 % (42.0-75.0); Mean Corpuscular HGB CONC 33.4 g/dL (32.0-36.0); Mean Corpuscular Hemoglobin 33.6 pg (27.0-31.0); Mean Platelet Volume 7.7 fL (7.4-10.4); Platelet Count 255 thou/uL (130-400); RBC Distribution Width 11.3 % (11.5-14.5); Red Blood Cell (RBC) Count 4.76 mill/uL (4.70-6.10); White Blood Cell (WBC) Count 24.3 thou/uL (4.8-10.8)
[2021-08-28] MEDS: Acetaminophen 325 MG TAB PO PRN (06:29)
[2021-08-28] MEDS: guaiFENesin/Codeine 200 mg/20 mg 10 ml Cup PO PRN ×2 (06:33→20:30)
[2021-08-28] MEDS: HumaLOG 300 UNITS/3 ML VIAL SC PRN ×3 (10:08→20:31)
[2021-08-28] MEDS: Dexamethasone 4 MG TAB PO SCH ×2 (10:09→20:30)
[2021-08-28] MEDS: BARICITINIB 2 MG TAB PO SCH (10:10)
[2021-08-28] MEDS: Lisinopril 20 MG TAB PO SCH (10:10)
[2021-08-28] MEDS: Lantus 1000 UNITS/10 ML VIAL SC SCH (10:11)
[2021-08-28] MEDS: HumaLOG 300 UNITS/3 ML VIAL SC SCH ×3 (10:19→15:57)
[2021-08-28] MEDS: Enoxaparin Sodium 40 MG/0.4 ML SYRINGE SC SCH (10:25)
[2021-08-28] MEDS: Benzonatate 100 MG CAP PO SCH ×2 (15:45→20:30)
[2021-08-28] MEDS: Enoxaparin Sodium 60 MG/0.6 ML SYRINGE SC SCH (20:29)
[2021-08-28] MEDS: diphenhydrAMINE 25 MG CAP PO SCH (20:30)
[2021-08-28] MEDS: Melatonin 3 MG TAB PO SCH (20:30)
[2021-08-28] MEDS: Atorvastatin Calcium 20 MG TAB PO SCH (20:30)
[2021-08-29 04:00] LABS: ALT (SGPT) 34 U/L (8-55); AST (SGOT) 17 U/L (5-34); Alkaline Phosphatase 49 U/L (40-110); Anion Gap 15 mmol/L (10-20); BUN (Urea Nitrogen) 23 mg/dL (8.4-25.7); Bilirubin, Total 0.6 mg/dL (0.2-1.2); Calc. Creatinine Clearance 109 mL/min (70-130); Calcium 8.6 mg/dL (7.8-10.44); Carbon Dioxide 24 mmol/L (23-31); Chloride 98 mmol/L (98-107); Globulin 2.9 g/dL (2.4-3.5); Glucose 170 mg/dL (80-115); Potassium 4.5 mmol/L (3.5-5.1); Protein, Total 5.9 g/dL (5.8-8.1); Sodium 132 mmol/L (136-145)
[2021-08-29 04:31] LABS: #Lymphocytes 0.8 thou/uL (1.20-3.40); #Monocytes 0.4 thou/uL (0.11-0.59); #Neutrophils 16.5 thou/uL (1.40-6.50); %Eosinophils 0.2 % (0.0-10.0); %Lymphocytes 4.5 % (21.0-51.0); %Monocytes 2.4 % (0.0-10.0); %Neutrophils 92.8 % (42.0-75.0); Hemoglobin 15.5 g/dL (14.0-18.0); Mean Corpuscular HGB CONC 33.4 g/dL (32.0-36.0); Mean Corpuscular Hemoglobin 33.1 pg (27.0-31.0); Mean Corpuscular Volume 99.2 fL (78.0-98.0); Mean Platelet Volume 7.6 fL (7.4-10.4); Platelet Count 251 thou/uL (130-400); RBC Distribution Width 11.3 % (11.5-14.5); Red Blood Cell (RBC) Count 4.69 mill/uL (4.70-6.10); White Blood Cell (WBC) Count 17.8 thou/uL (4.8-10.8)
[2021-08-29] MEDS: Dexamethasone 4 MG TAB PO SCH ×2 (09:02→19:53)
[2021-08-29] MEDS: Benzonatate 100 MG CAP PO SCH ×3 (09:04→19:52)
[2021-08-29] MEDS: guaiFENesin/Codeine 200 mg/20 mg 10 ml Cup PO PRN ×2 (09:04→19:52)
[2021-08-29] MEDS: Lisinopril 20 MG TAB PO SCH (09:04)
[2021-08-29] MEDS: BARICITINIB 2 MG TAB PO SCH (09:04)
[2021-08-29] MEDS: Enoxaparin Sodium 60 MG/0.6 ML SYRINGE SC SCH ×2 (09:05→19:52)
[2021-08-29] MEDS: HumaLOG 300 UNITS/3 ML VIAL SC SCH ×4 (09:05→17:21)
[2021-08-29] MEDS: Lantus 1000 UNITS/10 ML VIAL SC SCH (09:08)
[2021-08-29] MEDS: HumaLOG 300 UNITS/3 ML VIAL SC PRN ×2 (17:20→19:57)
[2021-08-29] MEDS: Melatonin 3 MG TAB PO SCH (19:53)
[2021-08-29] MEDS: diphenhydrAMINE 25 MG CAP PO SCH (19:53)
[2021-08-29] MEDS: Atorvastatin Calcium 20 MG TAB PO SCH (19:53)
[2021-08-30 03:31] LABS: #Basophils 0.1 thou/uL (0.0-0.2); #Lymphocytes 0.9 thou/uL (1.20-3.40); #Monocytes 0.6 thou/uL (0.11-0.59); #Neutrophils 15.3 thou/uL (1.40-6.50); %Basophils 0.4 % (0.0-1.0); %Eosinophils 0.2 % (0.0-10.0); %Lymphocytes 5.5 % (21.0-51.0); %Monocytes 3.3 % (0.0-10.0); %Neutrophils 90.6 % (42.0-75.0); Mean Corpuscular HGB CONC 33.6 g/dL (32.0-36.0); Mean Corpuscular Hemoglobin 33.3 pg (27.0-31.0); Mean Corpuscular Volume 99.1 fL (78.0-98.0); Mean Platelet Volume 7.7 fL (7.4-10.4); Platelet Count 224 thou/uL (130-400); RBC Distribution Width 11.3 % (11.5-14.5); White Blood Cell (WBC) Count 16.9 thou/uL (4.8-10.8)
[2021-08-30 03:56] LABS: ALT (SGPT) 34 U/L (8-55); AST (SGOT) 19 U/L (5-34); Albumin 3.1 g/dL (3.4-4.8); Alkaline Phosphatase 51 U/L (40-110); Anion Gap 14 mmol/L (10-20); BUN (Urea Nitrogen) 26 mg/dL (8.4-25.7); Bilirubin, Total 0.6 mg/dL (0.2-1.2); Calc. Creatinine Clearance 110 mL/min (70-130); Calcium 9.1 mg/dL (7.8-10.44); Carbon Dioxide 26 mmol/L (23-31); Chloride 98 mmol/L (98-107); Globulin 3.4 g/dL (2.4-3.5); Glucose 114 mg/dL (80-115); Potassium 5.2 mmol/L (3.5-5.1); Protein, Total 6.5 g/dL (5.8-8.1); Sodium 133 mmol/L (136-145)
[2021-08-30] MEDS: guaiFENesin/Codeine 200 mg/20 mg 10 ml Cup PO PRN ×3 (06:07→20:52)
[2021-08-30] MEDS: HumaLOG 300 UNITS/3 ML VIAL SC SCH ×4 (07:52→17:27)
[2021-08-30] MEDS: BARICITINIB 2 MG TAB PO SCH (09:55)
[2021-08-30] MEDS: Dexamethasone 4 MG TAB PO SCH ×2 (09:56→20:50)
[2021-08-30] MEDS: Benzonatate 100 MG CAP PO SCH ×3 (09:56→20:49)
[2021-08-30] MEDS: Lisinopril 20 MG TAB PO SCH (09:58)
[2021-08-30] MEDS: Enoxaparin Sodium 60 MG/0.6 ML SYRINGE SC SCH ×2 (09:59→20:49)
[2021-08-30] MEDS: Lantus 1000 UNITS/10 ML VIAL SC SCH (09:59)
[2021-08-30] MEDS: HumaLOG 300 UNITS/3 ML VIAL SC PRN ×3 (12:23→20:55)
[2021-08-30] MEDS: Melatonin 3 MG TAB PO SCH (20:49)
[2021-08-30] MEDS: diphenhydrAMINE 25 MG CAP PO SCH (20:49)
[2021-08-30] MEDS: Atorvastatin Calcium 20 MG TAB PO SCH (20:49)
[2021-08-30] MEDS: Mometasone 100 MCG/Formoterol 5 MCG 120 PUFF INHALER INH SCH (23:24)
[2021-08-31 04:10] LABS: #Basophils 0.1 thou/uL (0.0-0.2); #Eosinphils 0.1 thou/uL (0.0-0.7); #Lymphocytes 0.8 thou/uL (1.20-3.40); #Monocytes 0.6 thou/uL (0.11-0.59); #Neutrophils 16.6 thou/uL (1.40-6.50); %Basophils 0.3 % (0.0-1.0); %Eosinophils 0.8 % (0.0-10.0); %Lymphocytes 4.2 % (21.0-51.0); %Monocytes 3.5 % (0.0-10.0); %Neutrophils 91.2 % (42.0-75.0); Band 2 % (5-11); Hemoglobin 16.9 g/dL (14.0-18.0); Lymphocytes 10 % (21-51); MDiff Complete? YES; Macrocytosis SLIGHT = 6-15 cells (100X) (0-5/hpf); Mean Corpuscular HGB CONC 33.5 g/dL (32.0-36.0); Mean Corpuscular Hemoglobin 33.6 pg (27.0-31.0); Mean Platelet Volume 7.8 fL (7.4-10.4); Monocytes 4 % (0-10); Neutrophil 84 % (42-75); Platelet Count 235 thou/uL (130-400); Platelet Morphology Comment Appears Adequate; RBC Distribution Width 11.4 % (11.5-14.5); Red Blood Cell (RBC) Count 5.03 mill/uL (4.70-6.10); White Blood Cell (WBC) Count 18.2 thou/uL (4.8-10.8)
[2021-08-31 04:17] LABS: ALT (SGPT) 36 U/L (8-55); AST (SGOT) 22 U/L (5-34); Albumin 3.1 g/dL (3.4-4.8); Alkaline Phosphatase 47 U/L (40-110); Anion Gap 17 mmol/L (10-20); BUN (Urea Nitrogen) 27 mg/dL (8.4-25.7); Bilirubin, Total 0.6 mg/dL (0.2-1.2); Calc. Creatinine Clearance 106 mL/min (70-130); Calcium 8.6 mg/dL (7.8-10.44); Carbon Dioxide 25 mmol/L (23-31); Chloride 95 mmol/L (98-107); Globulin 3.5 g/dL (2.4-3.5); Glucose 127 mg/dL (80-115); Potassium 4.9 mmol/L (3.5-5.1); Protein, Total 6.6 g/dL (5.8-8.1); Sodium 132 mmol/L (136-145)
[2021-08-31] MEDS: Mometasone 100 MCG/Formoterol 5 MCG 120 PUFF INHALER INH SCH ×2 (09:14→18:43)
[2021-08-31] MEDS: HumaLOG 300 UNITS/3 ML VIAL SC SCH ×3 (10:58→16:12)
[2021-08-31] MEDS: Benzonatate 100 MG CAP PO SCH ×3 (10:58→21:43)
[2021-08-31] MEDS: Lisinopril 10 MG TAB PO SCH (10:58)
[2021-08-31] MEDS: hydrALAZINE 10 MG TAB PO SCH ×2 (10:59→16:12)
[2021-08-31] MEDS: Enoxaparin Sodium 60 MG/0.6 ML SYRINGE SC SCH ×2 (10:59→21:46)
[2021-08-31] MEDS: BARICITINIB 2 MG TAB PO SCH (10:59)
[2021-08-31] MEDS: Dexamethasone 4 MG TAB PO SCH ×2 (10:59→21:45)
[2021-08-31] MEDS: Lantus 1000 UNITS/10 ML VIAL SC SCH (11:00)
[2021-08-31] MEDS: Melatonin 3 MG TAB PO SCH (21:45)
[2021-08-31] MEDS: Atorvastatin Calcium 20 MG TAB PO SCH (21:46)
[2021-08-31] MEDS: diphenhydrAMINE 25 MG CAP PO SCH (21:48)
[2021-08-31] MEDS: Acetaminophen 325 MG TAB PO PRN (21:54)
[2021-08-31] MEDS: guaiFENesin/Codeine 200 mg/20 mg 10 ml Cup PO PRN (22:01)
[2021-08-31] MEDS: HumaLOG 300 UNITS/3 ML VIAL SC PRN (22:03)
[2021-09-01] MEDS: hydrALAZINE 10 MG TAB PO SCH ×4 (01:19→20:51)
[2021-09-01 07:15] LABS: Hemoglobin 17.3 g/dL (14.0-18.0); Mean Corpuscular HGB CONC 32.6 g/dL (32.0-36.0); Mean Corpuscular Hemoglobin 32.7 pg (27.0-31.0); Mean Platelet Volume 7.5 fL (7.4-10.4); Platelet Count 250 thou/uL (130-400); RBC Distribution Width 11.3 % (11.5-14.5); Red Blood Cell (RBC) Count 5.29 mill/uL (4.70-6.10); White Blood Cell (WBC) Count 16.2 thou/uL (4.8-10.8)
[2021-09-01 07:29] LABS: ALT (SGPT) 40 U/L (8-55); AST (SGOT) 18 U/L (5-34); Albumin 3.2 g/dL (3.4-4.8); Alkaline Phosphatase 47 U/L (40-110); Anion Gap 14 mmol/L (10-20); BUN (Urea Nitrogen) 26 mg/dL (8.4-25.7); Bilirubin, Total 0.7 mg/dL (0.2-1.2); Calc. Creatinine Clearance 111 mL/min (70-130); Calcium 8.9 mg/dL (7.8-10.44); Carbon Dioxide 26 mmol/L (23-31); Chloride 97 mmol/L (98-107); Globulin 3.4 g/dL (2.4-3.5); Glucose 112 mg/dL (80-115); Potassium 4.6 mmol/L (3.5-5.1); Protein, Total 6.6 g/dL (5.8-8.1); Sodium 132 mmol/L (136-145)
[2021-09-01 07:41] LABS: #Basophils 0.1 thou/uL (0.0-0.2); #Lymphocytes 0.9 thou/uL (1.20-3.40); #Neutrophils 14.1 thou/uL (1.40-6.50); %Basophils 0.3 % (0.0-1.0); %Eosinophils 0.3 % (0.0-10.0); %Lymphocytes 5.7 % (21.0-51.0); %Monocytes 6.3 % (0.0-10.0); %Neutrophils 87.3 % (42.0-75.0); Band 7 % (5-11); Lymphocytes 5 % (21-51); MDiff Complete? YES; Metamyelocyte 1 % (0-0); Monocytes 4 % (0-10); Neutrophil 81 % (42-75); Platelet Morphology Comment Appears Adequate; Polychromasia SLIGHT = 2-3 cells (100X) (0-2/hpf); Reactive Lymphocytes 2 % (0-10)
[2021-09-01] MEDS: Mometasone 100 MCG/Formoterol 5 MCG 120 PUFF INHALER INH SCH ×2 (07:51→21:04)
[2021-09-01] MEDS: Dexamethasone 4 MG TAB PO SCH ×2 (08:30→20:50)
[2021-09-01] MEDS: Enoxaparin Sodium 60 MG/0.6 ML SYRINGE SC SCH ×2 (08:31→21:06)
[2021-09-01] MEDS: Benzonatate 100 MG CAP PO SCH ×3 (08:31→20:49)
[2021-09-01] MEDS: Lisinopril 10 MG TAB PO SCH (08:33)
[2021-09-01] MEDS: HumaLOG 300 UNITS/3 ML VIAL SC SCH ×3 (08:34→16:41)
[2021-09-01] MEDS: Lantus 1000 UNITS/10 ML VIAL SC SCH (08:35)
[2021-09-01] MEDS: Acetaminophen 325 MG TAB PO PRN (15:25)
[2021-09-01] MEDS: diphenhydrAMINE 25 MG CAP PO SCH (20:50)
[2021-09-01] MEDS: Melatonin 3 MG TAB PO SCH (21:05)
[2021-09-01] MEDS: Atorvastatin Calcium 20 MG TAB PO SCH (21:05)
[2021-09-02] MEDS: Acetaminophen 325 MG TAB PO PRN (03:34)
[2021-09-02] MEDS: Mometasone 100 MCG/Formoterol 5 MCG 120 PUFF INHALER INH SCH ×2 (06:23→19:19)
[2021-09-02 07:32] LABS: #Lymphocytes 0.8 thou/uL (1.20-3.40); #Neutrophils 14.8 thou/uL (1.40-6.50); %Basophils 0.3 % (0.0-1.0); %Eosinophils 0.1 % (0.0-10.0); %Lymphocytes 4.7 % (21.0-51.0); %Monocytes 5.7 % (0.0-10.0); %Neutrophils 89.2 % (42.0-75.0); Hemoglobin 17.7 g/dL (14.0-18.0); Mean Corpuscular HGB CONC 33.6 g/dL (32.0-36.0); Mean Corpuscular Hemoglobin 33.8 pg (27.0-31.0); Mean Platelet Volume 7.6 fL (7.4-10.4); Platelet Count 255 thou/uL (130-400); RBC Distribution Width 11.5 % (11.5-14.5); Red Blood Cell (RBC) Count 5.24 mill/uL (4.70-6.10); White Blood Cell (WBC) Count 16.6 thou/uL (4.8-10.8)
[2021-09-02 07:58] LABS: ALT (SGPT) 41 U/L (8-55); AST (SGOT) 15 U/L (5-34); Albumin 3.2 g/dL (3.4-4.8); Alkaline Phosphatase 50 U/L (40-110); Anion Gap 15 mmol/L (10-20); BUN (Urea Nitrogen) 28 mg/dL (8.4-25.7); Bilirubin, Total 0.8 mg/dL (0.2-1.2); Calc. Creatinine Clearance 96 mL/min (70-130); Calcium 8.9 mg/dL (7.8-10.44); Carbon Dioxide 23 mmol/L (23-31); Chloride 98 mmol/L (98-107); Globulin 3.3 g/dL (2.4-3.5); Glucose 166 mg/dL (80-115); Potassium 4.5 mmol/L (3.5-5.1); Protein, Total 6.5 g/dL (5.8-8.1); Sodium 131 mmol/L (136-145)
[2021-09-02] MEDS: Lisinopril 10 MG TAB PO SCH (08:42)
[2021-09-02] MEDS: hydrALAZINE 10 MG TAB PO SCH ×3 (08:43→20:24)
[2021-09-02] MEDS: Dexamethasone 4 MG TAB PO SCH (08:43)
[2021-09-02] MEDS: HumaLOG 300 UNITS/3 ML VIAL SC SCH ×3 (08:44→17:15)
[2021-09-02] MEDS: Benzonatate 100 MG CAP PO SCH ×3 (08:44→20:25)
[2021-09-02] MEDS: Enoxaparin Sodium 60 MG/0.6 ML SYRINGE SC SCH ×2 (08:45→20:25)
[2021-09-02] MEDS: Lantus 1000 UNITS/10 ML VIAL SC SCH (08:45)
[2021-09-02] MEDS: HumaLOG 300 UNITS/3 ML VIAL SC PRN ×2 (12:06→17:15)
[2021-09-02] MEDS: Melatonin 3 MG TAB PO SCH (20:25)
[2021-09-02] MEDS: diphenhydrAMINE 25 MG CAP PO SCH (20:25)
[2021-09-02] MEDS: Atorvastatin Calcium 20 MG TAB PO SCH (20:26)
[2021-09-02] MEDS: guaiFENesin/Codeine 200 mg/20 mg 10 ml Cup PO PRN (20:30)
[2021-09-03] MEDS: Mometasone 100 MCG/Formoterol 5 MCG 120 PUFF INHALER INH SCH ×3 (05:01→19:36)
[2021-09-03 07:37] LABS: Band 9 % (5-11); Hemoglobin 16.6 g/dL (14.0-18.0); Lymphocytes 6 % (21-51); MDiff Complete? YES; Mean Corpuscular HGB CONC 34.2 g/dL (32.0-36.0); Mean Corpuscular Volume 99.4 fL (78.0-98.0); Mean Platelet Volume 7.3 fL (7.4-10.4); Monocytes 5 % (0-10); Neutrophil 79 % (42-75); Platelet Count 253 thou/uL (130-400); Platelet Morphology Comment Appears Adequate; RBC Distribution Width 11.4 % (11.5-14.5); RBC Morphology Normal; Reactive Lymphocytes 1 % (0-10); Red Blood Cell (RBC) Count 4.87 mill/uL (4.70-6.10); White Blood Cell (WBC) Count 24.4 thou/uL (4.8-10.8)
[2021-09-03 07:40] LABS: ALT (SGPT) 40 U/L (8-55); AST (SGOT) 19 U/L (5-34); Albumin 3.1 g/dL (3.4-4.8); Alkaline Phosphatase 47 U/L (40-110); Anion Gap 14 mmol/L (10-20); BUN (Urea Nitrogen) 26 mg/dL (8.4-25.7); Bilirubin, Total 0.9 mg/dL (0.2-1.2); Calc. Creatinine Clearance 114 mL/min (70-130); Calcium 8.7 mg/dL (7.8-10.44); Carbon Dioxide 21 mmol/L (23-31); Chloride 99 mmol/L (98-107); Globulin 2.9 g/dL (2.4-3.5); Glucose 112 mg/dL (80-115); Potassium 3.9 mmol/L (3.5-5.1); Sodium 130 mmol/L (136-145)
[2021-09-03] MEDS: Benzonatate 100 MG CAP PO SCH ×3 (07:54→19:33)
[2021-09-03] MEDS: Dexamethasone 4 MG TAB PO SCH (07:56)
[2021-09-03] MEDS: HumaLOG 300 UNITS/3 ML VIAL SC SCH ×2 (07:58→12:40)
[2021-09-03] MEDS: Lisinopril 10 MG TAB PO SCH (07:59)
[2021-09-03] MEDS: hydrALAZINE 10 MG TAB PO SCH ×3 (07:59→19:34)
[2021-09-03] MEDS: Enoxaparin Sodium 60 MG/0.6 ML SYRINGE SC SCH ×2 (07:59→19:33)
[2021-09-03] MEDS: Lantus 1000 UNITS/10 ML VIAL SC SCH (08:00)
[2021-09-03] MEDS: Sodium Chloride 0.65% Nasal 44 ML BOT EA NARE SCH ×2 (15:32→19:35)
[2021-09-03] MEDS: HumaLOG 300 UNITS/3 ML VIAL SC PRN (17:11)
[2021-09-03] MEDS ORDERED: hydrOXYzine 25 MG TAB PO SCH (18:15)
[2021-09-03] MEDS: diphenhydrAMINE 25 MG CAP PO SCH (19:33)
[2021-09-03] MEDS: guaiFENesin/Codeine 200 mg/20 mg 10 ml Cup PO PRN (19:33)
[2021-09-03] MEDS: Melatonin 3 MG TAB PO SCH (19:33)
[2021-09-03] MEDS: guaiFENesin/DM ER PO SCH (19:34)
[2021-09-03] MEDS: hydrOXYzine 25 MG TAB PO SCH (19:34)
[2021-09-03] MEDS: Atorvastatin Calcium 20 MG TAB PO SCH (19:34)
[2021-09-03] MEDS: Albuterol 200 PUFF (6.7GM INHALER) INH SCH (19:35)
[2021-09-04 01:14] LABS: Actual Bicarbonate (HCO3a) 24.9 mEq/L (22-28); Base Excess (BEa) 2.5 mEq/L (-2.0 to +3.0); CO2 Tension 32.7 mmHg (35.0-45.0); Calcium, Ionized (arterial) 1.14 mmol/L (1.12-1.30); Carboxyhemoglobin (COHb) 0.6 gm% (0.0-3.0); Hemoglobin (Hb) 16.5 g/dL (14.0-18.0); O2 Tension (PaO2), arterial 76.8 mmHg (> 80.0)
[2021-09-04 01:52] LABS: Puncture Site RRA
[2021-09-04 01:53] LABS: ALV-art Gradient 595.325 mmHg (0-20)
[2021-09-04] MEDS: Albuterol 200 PUFF (6.7GM INHALER) INH SCH ×5 (02:00→23:54)
[2021-09-04] MEDS: Acetaminophen 325 MG TAB PO PRN ×3 (04:54→20:04)
[2021-09-04] MEDS: Mometasone 100 MCG/Formoterol 5 MCG 120 PUFF INHALER INH SCH ×2 (07:06→18:32)
[2021-09-04] MEDS: guaiFENesin/DM ER PO SCH ×2 (08:55→19:57)
[2021-09-04] MEDS: Benzonatate 100 MG CAP PO SCH ×3 (08:55→19:57)
[2021-09-04] MEDS: Dexamethasone 4 MG TAB PO SCH (08:56)
[2021-09-04] MEDS: hydrOXYzine 25 MG TAB PO SCH ×3 (08:58→19:58)
[2021-09-04] MEDS: Apixaban 5 MG TAB PO SCH ×2 (09:10→19:56)
[2021-09-04] MEDS: hydrALAZINE 10 MG TAB PO SCH ×3 (09:11→19:59)
[2021-09-04] MEDS: Sodium Chloride 0.65% Nasal 44 ML BOT EA NARE SCH ×3 (09:13→19:59)
[2021-09-04] MEDS: HumaLOG 300 UNITS/3 ML VIAL SC SCH ×3 (09:14→17:30)
[2021-09-04] MEDS: Lantus 1000 UNITS/10 ML VIAL SC SCH (09:16)
[2021-09-04] MEDS: Lisinopril 10 MG TAB PO SCH (09:25)
[2021-09-04 12:17] LABS: #Eosinphils 0.1 thou/uL (0.0-0.7); #Lymphocytes 0.4 thou/uL (1.20-3.40); #Monocytes 0.5 thou/uL (0.11-0.59); #Neutrophils 19.9 thou/uL (1.40-6.50); %Basophils 0.1 % (0.0-1.0); %Eosinophils 0.3 % (0.0-10.0); %Lymphocytes 1.8 % (21.0-51.0); %Monocytes 2.3 % (0.0-10.0); %Neutrophils 95.5 % (42.0-75.0); Hemoglobin 15.7 g/dL (14.0-18.0); Mean Corpuscular HGB CONC 33.8 g/dL (32.0-36.0); Mean Corpuscular Hemoglobin 33.8 pg (27.0-31.0); Mean Corpuscular Volume 99.7 fL (78.0-98.0); Mean Platelet Volume 7.4 fL (7.4-10.4); Platelet Count 192 thou/uL (130-400); RBC Distribution Width 11.5 % (11.5-14.5); Red Blood Cell (RBC) Count 4.64 mill/uL (4.70-6.10); White Blood Cell (WBC) Count 20.8 thou/uL (4.8-10.8)
[2021-09-04 12:50] LABS: ALT (SGPT) 39 U/L (8-55); AST (SGOT) 18 U/L (5-34); Alkaline Phosphatase 48 U/L (40-110); Anion Gap 15 mmol/L (10-20); BUN (Urea Nitrogen) 28 mg/dL (8.4-25.7); Bilirubin, Total 0.8 mg/dL (0.2-1.2); Calc. Creatinine Clearance 120 mL/min (70-130); Calcium 8.5 mg/dL (7.8-10.44); Carbon Dioxide 21 mmol/L (23-31); Chloride 100 mmol/L (98-107); Globulin 2.8 g/dL (2.4-3.5); Glucose 169 mg/dL (80-115); Potassium 4.9 mmol/L (3.5-5.1); Protein, Total 5.8 g/dL (5.8-8.1); Sodium 131 mmol/L (136-145)
[2021-09-04] MEDS ORDERED: Iopamidol 370 76% 100 ML VIAL ONE (14:15)
[2021-09-04] MEDS: HumaLOG 300 UNITS/3 ML VIAL SC PRN (17:29)
[2021-09-04] MEDS: Atorvastatin Calcium 20 MG TAB PO SCH (19:57)
[2021-09-04] MEDS: Melatonin 3 MG TAB PO SCH ×2 (19:58→20:00)
[2021-09-04] MEDS: diphenhydrAMINE 25 MG CAP PO SCH (19:59)
[2021-09-05] MEDS: Acetaminophen 325 MG TAB PO PRN ×3 (01:20→22:59)
[2021-09-05] MEDS ORDERED: Lorazepam 0.5 MG TAB PO SCH (01:45)
[2021-09-05] MEDS ORDERED: Melatonin 3 MG TAB PO SCH (02:00)
[2021-09-05] MEDS: Mometasone 100 MCG/Formoterol 5 MCG 120 PUFF INHALER INH SCH ×2 (06:41→19:06)
[2021-09-05] MEDS: Albuterol 200 PUFF (6.7GM INHALER) INH SCH ×3 (06:41→19:06)
[2021-09-05 06:48] LABS: Hemoglobin 14.6 g/dL (14.0-18.0); Mean Corpuscular HGB CONC 33.8 g/dL (32.0-36.0); Mean Platelet Volume 7.7 fL (7.4-10.4); Platelet Count 173 thou/uL (130-400); RBC Distribution Width 11.5 % (11.5-14.5); Red Blood Cell (RBC) Count 4.29 mill/uL (4.70-6.10); White Blood Cell (WBC) Count 16.4 thou/uL (4.8-10.8)
[2021-09-05 07:00] LABS: ALT (SGPT) 35 U/L (8-55); AST (SGOT) 12 U/L (5-34); Albumin 2.8 g/dL (3.4-4.8); Alkaline Phosphatase 40 U/L (40-110); Anion Gap 14 mmol/L (10-20); BUN (Urea Nitrogen) 21 mg/dL (8.4-25.7); Bilirubin, Total 0.6 mg/dL (0.2-1.2); Calc. Creatinine Clearance 116 mL/min (70-130); Calcium 8.8 mg/dL (7.8-10.44); Carbon Dioxide 21 mmol/L (23-31); Chloride 98 mmol/L (98-107); Globulin 2.9 g/dL (2.4-3.5); Glucose 129 mg/dL (80-115); Potassium 4.3 mmol/L (3.5-5.1); Protein, Total 5.7 g/dL (5.8-8.1); Sodium 129 mmol/L (136-145)
[2021-09-05] MEDS: Benzonatate 100 MG CAP PO SCH ×3 (08:41→19:34)
[2021-09-05] MEDS: Apixaban 5 MG TAB PO SCH ×2 (08:41→19:34)
[2021-09-05] MEDS: Dexamethasone 4 MG TAB PO SCH (08:42)
[2021-09-05] MEDS: guaiFENesin/DM ER PO SCH ×2 (08:43→19:35)
[2021-09-05] MEDS: hydrOXYzine 25 MG TAB PO SCH ×3 (08:43→19:36)
[2021-09-05] MEDS: hydrALAZINE 10 MG TAB PO SCH ×2 (08:44→16:11)
[2021-09-05] MEDS: Lisinopril 10 MG TAB PO SCH (08:46)
[2021-09-05] MEDS: Sodium Chloride 0.65% Nasal 44 ML BOT EA NARE SCH ×3 (08:47→19:36)
[2021-09-05 08:53] LABS: #Lymphocytes 0.9 thou/uL (1.20-3.40); #Monocytes 0.5 thou/uL (0.11-0.59); %Basophils 0.2 % (0.0-1.0); %Eosinophils 0.3 % (0.0-10.0); %Lymphocytes 5.3 % (21.0-51.0); %Monocytes 3.1 % (0.0-10.0); %Neutrophils 91.1 % (42.0-75.0); Band 3 % (5-11); Lymphocytes 3 % (21-51); MDiff Complete? YES; Monocytes 4 % (0-10); Myelocyte 1 % (0-0); Neutrophil 89 % (42-75); Platelet Morphology Comment Appears Adequate; RBC Morphology Normal
[2021-09-05] MEDS: Lantus 1000 UNITS/10 ML VIAL SC SCH (09:07)
[2021-09-05] MEDS: HumaLOG 300 UNITS/3 ML VIAL SC SCH ×3 (09:09→16:58)
[2021-09-05] MEDS ORDERED: busPIRone HCl 5 MG TAB PO SCH (12:00)
[2021-09-05] MEDS ORDERED: Docusate 100 MG CAP PO PRN (13:01)
[2021-09-05] MEDS ORDERED: hydrALAZINE 10 MG TAB PO PRN (15:14)
[2021-09-05] MEDS: guaiFENesin/Codeine 200 mg/20 mg 10 ml Cup PO PRN (17:20)
[2021-09-05] MEDS: diphenhydrAMINE 25 MG CAP PO SCH (19:35)
[2021-09-05] MEDS: Atorvastatin Calcium 20 MG TAB PO SCH (19:35)
[2021-09-05] MEDS: busPIRone HCl 5 MG TAB PO SCH (19:36)
[2021-09-05] MEDS: Melatonin 3 MG TAB PO SCH (19:42)
[2021-09-06] MEDS: Albuterol 200 PUFF (6.7GM INHALER) INH SCH ×5 (01:50→18:39)
[2021-09-06] MEDS: Acetaminophen 325 MG TAB PO PRN (03:07)
[2021-09-06 06:46] LABS: #Lymphocytes 0.9 thou/uL (1.20-3.40); #Monocytes 0.7 thou/uL (0.11-0.59); %Eosinophils 0.2 % (0.0-10.0); %Lymphocytes 5.2 % (21.0-51.0); %Monocytes 4.5 % (0.0-10.0); %Neutrophils 90.1 % (42.0-75.0); Hemoglobin 14.6 g/dL (14.0-18.0); Mean Corpuscular HGB CONC 33.7 g/dL (32.0-36.0); Mean Corpuscular Hemoglobin 33.7 pg (27.0-31.0); Mean Platelet Volume 7.4 fL (7.4-10.4); Platelet Count 192 thou/uL (130-400); RBC Distribution Width 11.7 % (11.5-14.5); Red Blood Cell (RBC) Count 4.32 mill/uL (4.70-6.10); White Blood Cell (WBC) Count 16.6 thou/uL (4.8-10.8)
[2021-09-06 07:07] LABS: ALT (SGPT) 37 U/L (8-55); AST (SGOT) 11 U/L (5-34); Albumin 3.1 g/dL (3.4-4.8); Alkaline Phosphatase 50 U/L (40-110); Anion Gap 13 mmol/L (10-20); BUN (Urea Nitrogen) 23 mg/dL (8.4-25.7); Bilirubin, Total 0.7 mg/dL (0.2-1.2); Calc. Creatinine Clearance 118 mL/min (70-130); Calcium 8.9 mg/dL (7.8-10.44); Carbon Dioxide 23 mmol/L (23-31); Chloride 97 mmol/L (98-107); Globulin 3.3 g/dL (2.4-3.5); Glucose 118 mg/dL (80-115); Potassium 4.3 mmol/L (3.5-5.1); Protein, Total 6.4 g/dL (5.8-8.1); Sodium 129 mmol/L (136-145)
[2021-09-06] MEDS: Mometasone 100 MCG/Formoterol 5 MCG 120 PUFF INHALER INH SCH ×2 (07:27→18:38)
[2021-09-06] MEDS: Benzonatate 100 MG CAP PO SCH ×3 (09:36→21:04)
[2021-09-06] MEDS: Apixaban 5 MG TAB PO SCH ×2 (09:36→21:04)
[2021-09-06] MEDS: busPIRone HCl 5 MG TAB PO SCH ×2 (09:36→21:04)
[2021-09-06] MEDS: hydrOXYzine 25 MG TAB PO SCH ×3 (09:36→21:05)
[2021-09-06] MEDS: Dexamethasone 4 MG TAB PO SCH (09:37)
[2021-09-06] MEDS: guaiFENesin/DM ER PO SCH ×2 (09:38→21:04)
[2021-09-06] MEDS: HumaLOG 300 UNITS/3 ML VIAL SC SCH ×4 (09:40→17:06)
[2021-09-06] MEDS: Lisinopril 10 MG TAB PO SCH (09:41)
[2021-09-06] MEDS: Lantus 1000 UNITS/10 ML VIAL SC SCH (09:42)
[2021-09-06] MEDS ORDERED: Polyethylene Glycol 3350 17 GM Packet PO PRN (10:37)
[2021-09-06] MEDS: Sodium Chloride 0.65% Nasal 44 ML BOT EA NARE SCH ×3 (11:30→21:05)
[2021-09-06] MEDS ORDERED: Fluticasone Propionate Nasal Spray 16 gm Bottle NASAL SCH (12:30)
[2021-09-06] MEDS: Atorvastatin Calcium 20 MG TAB PO SCH (21:04)
[2021-09-06] MEDS: diphenhydrAMINE 25 MG CAP PO SCH (21:04)
[2021-09-06] MEDS: Melatonin 3 MG TAB PO SCH (21:04)
[2021-09-06] MEDS: HumaLOG 300 UNITS/3 ML VIAL SC PRN (22:21)
[2021-09-06] MEDS: guaiFENesin/Codeine 200 mg/20 mg 10 ml Cup PO PRN (22:22)
[2021-09-07] MEDS: Albuterol 200 PUFF (6.7GM INHALER) INH SCH ×5 (02:50→22:39)
[2021-09-07] MEDS: guaiFENesin/Codeine 200 mg/20 mg 10 ml Cup PO PRN ×2 (04:29→21:10)
[2021-09-07 05:02] LABS: #Monocytes 0.7 thou/uL (0.11-0.59); #Neutrophils 12.9 thou/uL (1.40-6.50); %Basophils 0.3 % (0.0-1.0); %Eosinophils 0.2 % (0.0-10.0); %Monocytes 4.8 % (0.0-10.0); %Neutrophils 87.7 % (42.0-75.0); Mean Corpuscular HGB CONC 33.7 g/dL (32.0-36.0); Mean Corpuscular Hemoglobin 33.7 pg (27.0-31.0); Platelet Count 177 thou/uL (130-400); RBC Distribution Width 11.6 % (11.5-14.5); Red Blood Cell (RBC) Count 4.46 mill/uL (4.70-6.10); White Blood Cell (WBC) Count 14.7 thou/uL (4.8-10.8)
[2021-09-07 05:22] LABS: ALT (SGPT) 31 U/L (8-55); AST (SGOT) 12 U/L (5-34); Albumin 3.2 g/dL (3.4-4.8); Alkaline Phosphatase 53 U/L (40-110); Anion Gap 14 mmol/L (10-20); BUN (Urea Nitrogen) 23 mg/dL (8.4-25.7); Bilirubin, Total 0.7 mg/dL (0.2-1.2); Calc. Creatinine Clearance 119 mL/min (70-130); Calcium 9.2 mg/dL (7.8-10.44); Carbon Dioxide 25 mmol/L (23-31); Chloride 99 mmol/L (98-107); Globulin 3.5 g/dL (2.4-3.5); Glucose 66 mg/dL (80-115); Potassium 4.4 mmol/L (3.5-5.1); Protein, Total 6.7 g/dL (5.8-8.1); Sodium 134 mmol/L (136-145)
[2021-09-07] MEDS: Mometasone 100 MCG/Formoterol 5 MCG 120 PUFF INHALER INH SCH ×2 (07:45→22:38)
[2021-09-07] MEDS ORDERED: Fluticasone Propionate Nasal Spray 16 gm Bottle NASAL SCH (09:00)
[2021-09-07] MEDS: Acetaminophen 325 MG TAB PO PRN ×3 (09:25→23:51)
[2021-09-07] MEDS: Apixaban 5 MG TAB PO SCH ×2 (09:26→21:10)
[2021-09-07] MEDS: Dexamethasone 4 MG TAB PO SCH (09:26)
[2021-09-07] MEDS: Benzonatate 100 MG CAP PO SCH ×3 (09:26→21:10)
[2021-09-07] MEDS: hydrOXYzine 25 MG TAB PO SCH ×3 (09:27→18:18)
[2021-09-07] MEDS: busPIRone HCl 5 MG TAB PO SCH (09:27)
[2021-09-07] MEDS: Lisinopril 10 MG TAB PO SCH (09:27)
[2021-09-07] MEDS: Lantus 1000 UNITS/10 ML VIAL SC SCH (09:28)
[2021-09-07] MEDS: guaiFENesin/DM ER PO SCH ×2 (09:28→21:10)
[2021-09-07] MEDS: Sodium Chloride 0.65% Nasal 44 ML BOT EA NARE SCH ×3 (09:29→21:08)
[2021-09-07] MEDS: HumaLOG 300 UNITS/3 ML VIAL SC SCH ×3 (09:44→18:18)
[2021-09-07] MEDS ORDERED: Glycerin Adult Supp. (24 ct jar) PR SCH (10:00)
[2021-09-07] MEDS: Fluticasone Propionate Nasal Spray 16 gm Bottle NASAL SCH (11:01)
[2021-09-07] MEDS ORDERED: Lidocaine 5% Patch TD SCH (12:15)
[2021-09-07] MEDS ORDERED: HumaLOG 300 UNITS/3 ML VIAL SC SCH ×3 (12:45→18:30)
[2021-09-07] MEDS: Melatonin 3 MG TAB PO SCH (21:10)
[2021-09-07] MEDS: diphenhydrAMINE 25 MG CAP PO SCH (21:10)
[2021-09-07] MEDS: Atorvastatin Calcium 20 MG TAB PO SCH (21:11)
[2021-09-07] MEDS: busPIRone HCl 10 MG TAB PO SCH (21:11)
[2021-09-07] MEDS: HumaLOG 300 UNITS/3 ML VIAL SC PRN (21:12)
[2021-09-08] MEDS: Albuterol 200 PUFF (6.7GM INHALER) INH PRN (02:35)
[2021-09-08] MEDS: Acetaminophen 325 MG TAB PO PRN ×3 (04:51→20:16)
[2021-09-08] MEDS: hydrOXYzine 25 MG TAB PO SCH ×3 (04:52→18:45)
[2021-09-08 06:12] LABS: #Eosinphils 0.1 thou/uL (0.0-0.7); #Lymphocytes 0.8 thou/uL (1.20-3.40); #Monocytes 0.5 thou/uL (0.11-0.59); #Neutrophils 12.9 thou/uL (1.40-6.50); %Eosinophils 0.4 % (0.0-10.0); %Lymphocytes 5.9 % (21.0-51.0); %Monocytes 3.2 % (0.0-10.0); %Neutrophils 90.6 % (42.0-75.0); Hemoglobin 14.9 g/dL (14.0-18.0); Mean Corpuscular Hemoglobin 32.9 pg (27.0-31.0); Mean Corpuscular Volume 99.8 fL (78.0-98.0); Mean Platelet Volume 7.2 fL (7.4-10.4); Platelet Count 162 thou/uL (130-400); RBC Distribution Width 11.8 % (11.5-14.5); Red Blood Cell (RBC) Count 4.52 mill/uL (4.70-6.10); White Blood Cell (WBC) Count 14.2 thou/uL (4.8-10.8)
[2021-09-08 06:33] LABS: ALT (SGPT) 25 U/L (8-55); AST (SGOT) 9 U/L (5-34); Albumin 2.9 g/dL (3.4-4.8); Alkaline Phosphatase 47 U/L (40-110); Anion Gap 14 mmol/L (10-20); BUN (Urea Nitrogen) 25 mg/dL (8.4-25.7); Bilirubin, Total 0.6 mg/dL (0.2-1.2); Calc. Creatinine Clearance 126 mL/min (70-130); Calcium 8.7 mg/dL (7.8-10.44); Carbon Dioxide 24 mmol/L (23-31); Chloride 97 mmol/L (98-107); Globulin 3.3 g/dL (2.4-3.5); Glucose 82 mg/dL (80-115); Potassium 4.3 mmol/L (3.5-5.1); Protein, Total 6.2 g/dL (5.8-8.1); Sodium 131 mmol/L (136-145)
[2021-09-08] MEDS: Mometasone 100 MCG/Formoterol 5 MCG 120 PUFF INHALER INH SCH ×2 (09:38→18:45)
[2021-09-08] MEDS: Albuterol 200 PUFF (6.7GM INHALER) INH SCH ×3 (09:42→19:03)
[2021-09-08] MEDS: Fluticasone Propionate Nasal Spray 16 gm Bottle NASAL SCH (09:44)
[2021-09-08] MEDS: Apixaban 5 MG TAB PO SCH ×2 (09:44→20:17)
[2021-09-08] MEDS: Polyethylene Glycol 3350 17 GM Packet PO SCH (09:44)
[2021-09-08] MEDS: busPIRone HCl 10 MG TAB PO SCH ×2 (09:44→20:17)
[2021-09-08] MEDS: Benzonatate 100 MG CAP PO SCH ×3 (09:45→20:18)
[2021-09-08] MEDS: Lisinopril 10 MG TAB PO SCH (09:45)
[2021-09-08] MEDS: Dexamethasone 4 MG TAB PO SCH (09:45)
[2021-09-08] MEDS: Lantus 1000 UNITS/10 ML VIAL SC SCH (09:46)
[2021-09-08] MEDS: Lidocaine 5% Patch TD SCH (09:46)
[2021-09-08] MEDS: guaiFENesin/DM ER PO SCH ×2 (09:46→20:21)
[2021-09-08] MEDS: Sodium Chloride 0.65% Nasal 44 ML BOT EA NARE SCH ×3 (09:47→20:14)
[2021-09-08] MEDS: HumaLOG 300 UNITS/3 ML VIAL SC SCH ×3 (10:05→16:59)
[2021-09-08] MEDS: diphenhydrAMINE 25 MG CAP PO SCH (20:16)
[2021-09-08] MEDS: Atorvastatin Calcium 20 MG TAB PO SCH (20:16)
[2021-09-08] MEDS: Melatonin 3 MG TAB PO SCH (20:18)
[2021-09-08] MEDS: Transdermal Patch Removal TOP SCH (20:25)
[2021-09-08] MEDS: HumaLOG 300 UNITS/3 ML VIAL SC PRN (20:40)
[2021-09-09] MEDS: Acetaminophen 325 MG TAB PO PRN ×3 (00:29→14:57)
[2021-09-09] MEDS: Albuterol 200 PUFF (6.7GM INHALER) INH SCH ×4 (01:00→19:10)
[2021-09-09] MEDS: hydrOXYzine 25 MG TAB PO SCH ×3 (04:22→17:18)
[2021-09-09 05:20] LABS: #Lymphocytes 0.6 thou/uL (1.20-3.40); #Monocytes 0.5 thou/uL (0.11-0.59); #Neutrophils 12.5 thou/uL (1.40-6.50); %Basophils 0.3 % (0.0-1.0); %Eosinophils 0.1 % (0.0-10.0); %Lymphocytes 4.7 % (21.0-51.0); %Monocytes 3.5 % (0.0-10.0); %Neutrophils 91.4 % (42.0-75.0); Mean Corpuscular HGB CONC 32.8 g/dL (32.0-36.0); Mean Corpuscular Hemoglobin 32.8 pg (27.0-31.0); Mean Platelet Volume 7.9 fL (7.4-10.4); Platelet Count 149 thou/uL (130-400); RBC Distribution Width 11.9 % (11.5-14.5); Red Blood Cell (RBC) Count 4.26 mill/uL (4.70-6.10); White Blood Cell (WBC) Count 13.7 thou/uL (4.8-10.8)
[2021-09-09 05:26] LABS: ALT (SGPT) 27 U/L (8-55); AST (SGOT) 10 U/L (5-34); Albumin 2.7 g/dL (3.4-4.8); Alkaline Phosphatase 53 U/L (40-110); Anion Gap 16 mmol/L (10-20); BUN (Urea Nitrogen) 23 mg/dL (8.4-25.7); Bilirubin, Total 0.6 mg/dL (0.2-1.2); Calc. Creatinine Clearance 112 mL/min (70-130); Calcium 8.6 mg/dL (7.8-10.44); Carbon Dioxide 23 mmol/L (23-31); Chloride 97 mmol/L (98-107); Globulin 3.6 g/dL (2.4-3.5); Glucose 106 mg/dL (80-115); Potassium 4.5 mmol/L (3.5-5.1); Protein, Total 6.3 g/dL (5.8-8.1); Sodium 131 mmol/L (136-145)
[2021-09-09] MEDS: Mometasone 100 MCG/Formoterol 5 MCG 120 PUFF INHALER INH SCH ×2 (07:16→19:13)
[2021-09-09] MEDS: Sodium Chloride 0.65% Nasal 44 ML BOT EA NARE SCH ×3 (08:01→21:40)
[2021-09-09] MEDS: Benzonatate 100 MG CAP PO SCH ×3 (08:02→21:39)
[2021-09-09] MEDS: Lantus 1000 UNITS/10 ML VIAL SC SCH (08:02)
[2021-09-09] MEDS: Fluticasone Propionate Nasal Spray 16 gm Bottle NASAL SCH (08:02)
[2021-09-09] MEDS: Apixaban 5 MG TAB PO SCH ×2 (08:04→21:39)
[2021-09-09] MEDS: busPIRone HCl 10 MG TAB PO SCH ×2 (08:04→21:39)
[2021-09-09] MEDS: Lisinopril 10 MG TAB PO SCH (08:04)
[2021-09-09] MEDS: Dexamethasone 4 MG TAB PO SCH (08:04)
[2021-09-09] MEDS: Lidocaine 5% Patch TD SCH (08:05)
[2021-09-09] MEDS: guaiFENesin/DM ER PO SCH ×2 (08:05→21:40)
[2021-09-09] MEDS: Polyethylene Glycol 3350 17 GM Packet PO SCH (08:05)
[2021-09-09] MEDS ORDERED: Morphine 4 MG/ML VIAL ONE (08:16)
[2021-09-09] MEDS ORDERED: Morphine 2 MG/ML VIAL SLOW IVP SCH (08:30)
[2021-09-09] MEDS ORDERED: cefTRIAXone\\ROCEPHIN 2 GM in Sodium Chloride 0.9% 100 ML IVPB SCH (08:45)
[2021-09-09] MEDS ORDERED: Morphine 4 MG/ML VIAL SLOW IVP SCH ×2 (09:00→20:30)
[2021-09-09] MEDS: HumaLOG 300 UNITS/3 ML VIAL SC SCH ×3 (09:17→17:18)
[2021-09-09] MEDS: Cefepime 2 GM in Sodium Chloride 0.9% 100 ML IVPB SCH ×2 (14:58→21:40)
[2021-09-09 16:31] LABS: Legionella Urinary Ag Negative (Negative); Strep pneumo Urine Ag NEGATIVE (NEGATIVE)
[2021-09-09] MEDS: HumaLOG 300 UNITS/3 ML VIAL SC PRN ×2 (17:18→21:41)
[2021-09-09] MEDS: Transdermal Patch Removal TOP SCH (18:30)
[2021-09-09] MEDS ORDERED: Lidocaine 1% w/Epinephrine 1:100K 20 ML VIAL ONE ×2 (18:56)
[2021-09-09] MEDS: diphenhydrAMINE 25 MG CAP PO SCH (21:39)
[2021-09-09] MEDS: Atorvastatin Calcium 20 MG TAB PO SCH (21:39)
[2021-09-09] MEDS: Melatonin 3 MG TAB PO SCH (21:40)
[2021-09-10] MEDS: Albuterol 200 PUFF (6.7GM INHALER) INH SCH ×4 (02:03→18:57)
[2021-09-10] MEDS: hydrOXYzine 25 MG TAB PO SCH ×3 (05:21→17:58)
[2021-09-10] MEDS: Cefepime 2 GM in Sodium Chloride 0.9% 100 ML IVPB SCH ×3 (05:21→21:00)
[2021-09-10] MEDS ORDERED: Morphine 4 MG/ML VIAL SLOW IVP SCH (05:30)
[2021-09-10] MEDS: HumaLOG 300 UNITS/3 ML VIAL SC PRN (06:05)
[2021-09-10] MEDS: Mometasone 100 MCG/Formoterol 5 MCG 120 PUFF INHALER INH SCH ×2 (07:29→18:57)
[2021-09-10] MEDS: guaiFENesin/DM ER PO SCH ×2 (09:44→20:53)
[2021-09-10] MEDS: Apixaban 5 MG TAB PO SCH (09:44)
[2021-09-10] MEDS: Polyethylene Glycol 3350 17 GM Packet PO SCH (09:44)
[2021-09-10] MEDS: Benzonatate 100 MG CAP PO SCH ×3 (09:44→20:53)
[2021-09-10] MEDS: Dexamethasone 4 MG TAB PO SCH (09:44)
[2021-09-10] MEDS: Lisinopril 10 MG TAB PO SCH (09:44)
[2021-09-10] MEDS: Lantus 1000 UNITS/10 ML VIAL SC SCH (09:45)
[2021-09-10] MEDS: busPIRone HCl 10 MG TAB PO SCH ×2 (09:45→20:53)
[2021-09-10] MEDS: HumaLOG 300 UNITS/3 ML VIAL SC SCH ×3 (09:46→19:09)
[2021-09-10] MEDS: Fluticasone Propionate Nasal Spray 16 gm Bottle NASAL SCH (09:48)
[2021-09-10] MEDS: Sodium Chloride 0.65% Nasal 44 ML BOT EA NARE SCH ×3 (09:48→20:55)
[2021-09-10] MEDS: Lidocaine 5% Patch TD SCH (09:48)
[2021-09-10 10:55] LABS: Band 23 % (5-11); Hemoglobin 14.4 g/dL (14.0-18.0); Lymphocytes 5 % (21-51); MDiff Complete? YES; Mean Corpuscular HGB CONC 33.6 g/dL (32.0-36.0); Mean Corpuscular Hemoglobin 33.4 pg (27.0-31.0); Mean Corpuscular Volume 99.4 fL (78.0-98.0); Mean Platelet Volume 7.7 fL (7.4-10.4); Neutrophil 72 % (42-75); Platelet Count 139 thou/uL (130-400); RBC Distribution Width 12.1 % (11.5-14.5); Red Blood Cell (RBC) Count 4.31 mill/uL (4.70-6.10); White Blood Cell (WBC) Count 14.4 thou/uL (4.8-10.8)
[2021-09-10 11:15] LABS: ALT (SGPT) 28 U/L (8-55); AST (SGOT) 19 U/L (5-34); Albumin 2.6 g/dL (3.4-4.8); Alkaline Phosphatase 65 U/L (40-110); Anion Gap 18 mmol/L (10-20); BUN (Urea Nitrogen) 28 mg/dL (8.4-25.7); Bilirubin, Total 0.5 mg/dL (0.2-1.2); Calc. Creatinine Clearance 97 mL/min (70-130); Calcium 8.8 mg/dL (7.8-10.44); Carbon Dioxide 15 mmol/L (23-31); Chloride 102 mmol/L (98-107); Globulin 4.1 g/dL (2.4-3.5); Glucose 201 mg/dL (80-115); Potassium 5.7 mmol/L (3.5-5.1); Protein, Total 6.7 g/dL (5.8-8.1); Sodium 129 mmol/L (136-145)
[2021-09-10] MEDS: Morphine 4 MG/ML VIAL SLOW IVP PRN ×2 (12:52→20:54)
[2021-09-10] MEDS: Vancomycin 1 GM in Premix Bag 1 BAG IVPB SCH (14:54)
[2021-09-10] MEDS: metroNIDAZOLE 500 MG in Premix Bag 1 BAG IVPB SCH ×2 (17:58→21:36)
[2021-09-10] MEDS ORDERED: HumaLOG 300 UNITS/3 ML VIAL SC SCH (19:15)
[2021-09-10] MEDS: diphenhydrAMINE 25 MG CAP PO SCH (20:53)
[2021-09-10] MEDS: Atorvastatin Calcium 20 MG TAB PO SCH (20:53)
[2021-09-10] MEDS: Melatonin 3 MG TAB PO SCH (20:54)
[2021-09-10] MEDS: Transdermal Patch Removal TOP SCH (20:55)
[2021-09-11] MEDS: Vancomycin 1 GM in Premix Bag 1 BAG IVPB SCH ×2 (01:55→13:24)
[2021-09-11] MEDS: Morphine 4 MG/ML VIAL SLOW IVP PRN (01:55)
[2021-09-11] MEDS: Albuterol 200 PUFF (6.7GM INHALER) INH SCH ×4 (04:03→23:42)
[2021-09-11] MEDS ORDERED: Lorazepam 2 MG/ML VIAL ONE (04:36)
[2021-09-11] MEDS ORDERED: Lorazepam 2 MG/ML VIAL SLOW IVP SCH (04:45)
[2021-09-11 04:52] LABS: Actual Bicarbonate (HCO3a) 26.2 mEq/L (22-28); Base Excess (BEa) 2.1 mEq/L (-2.0 to +3.0); CO2 Tension 39.3 mmHg (35.0-45.0); Calcium, Ionized (arterial) 1.11 mmol/L (1.12-1.30); Hemoglobin (Hb) 13.9 g/dL (14.0-18.0); Potassium - ABG Lab 4.38 mmol/L (3.70-5.30); pH, Arterial 7.44 (7.35-7.45)
[2021-09-11 04:57] LABS: O2 Tension (PaO2), arterial 42.3 mmHg (> 80.0)
[2021-09-11 04:58] LABS: ALV-art Gradient 621.575 mmHg (0-20); Puncture Site RRA
[2021-09-11 06:44] LABS: ALT (SGPT) 36 U/L (8-55); AST (SGOT) 22 U/L (5-34); Albumin 2.6 g/dL (3.4-4.8); Alkaline Phosphatase 62 U/L (40-110); Anion Gap 15 mmol/L (10-20); BUN (Urea Nitrogen) 24 mg/dL (8.4-25.7); Bilirubin, Total 0.4 mg/dL (0.2-1.2); Calc. Creatinine Clearance 132 mL/min (70-130); Calcium 8.4 mg/dL (7.8-10.44); Carbon Dioxide 20 mmol/L (23-31); Chloride 97 mmol/L (98-107); Globulin 3.8 g/dL (2.4-3.5); Glucose 97 mg/dL (80-115); Potassium 4.4 mmol/L (3.5-5.1); Protein, Total 6.4 g/dL (5.8-8.1); Sodium 128 mmol/L (136-145)
[2021-09-11] MEDS: Cefepime 2 GM in Sodium Chloride 0.9% 100 ML IVPB SCH ×3 (07:25→22:31)
[2021-09-11] MEDS: metroNIDAZOLE 500 MG in Premix Bag 1 BAG IVPB SCH ×3 (08:56→22:35)
[2021-09-11] MEDS: hydrOXYzine 25 MG TAB PO SCH ×3 (08:56→17:24)
[2021-09-11] MEDS: Dexamethasone 4 MG TAB PO SCH (08:56)
[2021-09-11] MEDS: Lisinopril 10 MG TAB PO SCH (08:57)
[2021-09-11] MEDS: Apixaban 5 MG TAB PO SCH ×2 (08:57→20:44)
[2021-09-11] MEDS: Benzonatate 100 MG CAP PO SCH ×3 (08:57→20:46)
[2021-09-11] MEDS: busPIRone HCl 10 MG TAB PO SCH ×2 (08:57→20:46)
[2021-09-11] MEDS: guaiFENesin/DM ER PO SCH ×2 (08:58→20:47)
[2021-09-11] MEDS: Fluticasone Propionate Nasal Spray 16 gm Bottle NASAL SCH (08:59)
[2021-09-11] MEDS: Polyethylene Glycol 3350 17 GM Packet PO SCH (08:59)
[2021-09-11] MEDS: Sodium Chloride 0.65% Nasal 44 ML BOT EA NARE SCH ×3 (09:00→21:51)
[2021-09-11] MEDS: HumaLOG 300 UNITS/3 ML VIAL SC SCH ×3 (09:04→17:24)
[2021-09-11] MEDS: Lidocaine 5% Patch TD SCH (09:05)
[2021-09-11] MEDS: Lantus 1000 UNITS/10 ML VIAL SC SCH (09:05)
[2021-09-11 09:39] LABS: Band 50 % (5-11); Hemoglobin 13.3 g/dL (14.0-18.0); Lymphocytes 9 % (21-51); MDiff Complete? YES; Mean Corpuscular HGB CONC 32.7 g/dL (32.0-36.0); Mean Corpuscular Hemoglobin 32.2 pg (27.0-31.0); Mean Corpuscular Volume 98.7 fL (78.0-98.0); Mean Platelet Volume 7.8 fL (7.4-10.4); Metamyelocyte 1 % (0-0); Monocytes 1 % (0-10); Neutrophil 39 % (42-75); Platelet Count 124 thou/uL (130-400); Platelet Morphology Comment Appears Decreased; Polychromasia SLIGHT = 2-3 cells (100X) (0-2/hpf); Red Blood Cell (RBC) Count 4.12 mill/uL (4.70-6.10); Target Cells SLIGHT = 2-5 cells (100X) (0-1/hpf); White Blood Cell (WBC) Count 12.5 thou/uL (4.8-10.8)
[2021-09-11] MEDS: Mometasone 100 MCG/Formoterol 5 MCG 120 PUFF INHALER INH SCH ×2 (11:13→23:42)
[2021-09-11] MEDS ORDERED: Succinylcholine 200 MG/10 ml SYRINGE FS ONE (12:31)
[2021-09-11] MEDS ORDERED: Morphine 4 MG/ML VIAL SLOW IVP PRN (13:47)
[2021-09-11] MEDS ORDERED: SODIUM CHLORIDE 0.9% IVPB SCH (14:30)
[2021-09-11] MEDS ORDERED: DEXMEDETOMIDINE IVPB SCH (14:30)
[2021-09-11] MEDS ORDERED: Sodium Chloride 0.9% 500 ML IV SCH (16:15)
[2021-09-11] MEDS ORDERED: Albumin 5% 0 ML ONE (16:18)
[2021-09-11] MEDS: Albumin 25% 25 GM/100 ML BOT IVPB SCH (16:24)
[2021-09-11 17:13] LABS: Actual Bicarbonate (HCO3a) 21.6 mEq/L (22-28); Base Excess (BEa) -1.1 mEq/L (-2.0 to +3.0); CO2 Tension 29.5 mmHg (35.0-45.0); Calcium, Ionized (arterial) 1.02 mmol/L (1.12-1.30); Carboxyhemoglobin (COHb) 0.3 gm% (0.0-3.0); Hemoglobin (Hb) 10.8 g/dL (14.0-18.0); pH, Arterial 7.48 (7.35-7.45)
[2021-09-11 17:19] LABS: O2 Tension (PaO2), arterial 50.8 mmHg (> 80.0); Puncture Site RRA
[2021-09-11 17:20] LABS: ALV-art Gradient 532.635 mmHg (0-20)
[2021-09-11] MEDS: Sodium Chloride 0.45% 1,000 ML IV SCH (17:58)
[2021-09-11] MEDS ORDERED: Sodium Chloride 0.9% 500 ML IVPB SCH (18:00)
[2021-09-11] MEDS: Atorvastatin Calcium 20 MG TAB PO SCH (20:44)
[2021-09-11] MEDS: Melatonin 3 MG TAB PO SCH (20:46)
[2021-09-11] MEDS: diphenhydrAMINE 25 MG CAP PO SCH (20:47)
[2021-09-11] MEDS: Transdermal Patch Removal TOP SCH (21:52)
[2021-09-11] MEDS: HumaLOG 300 UNITS/3 ML VIAL SC PRN (23:07)
[2021-09-12] MEDS: Albuterol 200 PUFF (6.7GM INHALER) INH SCH (02:02)
[2021-09-12] MEDS: Vancomycin 1 GM in Premix Bag 1 BAG IVPB SCH ×3 (02:34→21:22)
[2021-09-12] MEDS: Sodium Chloride 0.45% 1,000 ML IV SCH ×3 (02:39→16:42)
[2021-09-12 04:03] LABS: Actual Bicarbonate (HCO3a) 19.3 mEq/L (22-28); Base Excess (BEa) -3.5 mEq/L (-2.0 to +3.0); CO2 Tension 28.4 mmHg (35.0-45.0); Carboxyhemoglobin (COHb) 0.7 gm% (0.0-3.0); Hemoglobin (Hb) 12.3 g/dL (14.0-18.0); Potassium - ABG Lab 4.51 mmol/L (3.70-5.30); pH, Arterial 7.45 (7.35-7.45)
[2021-09-12] MEDS ORDERED: Propofol 1,000 MG/100 ML VIAL IV ONE (04:06)
[2021-09-12] MEDS ORDERED: Ventilator Sedation Protocol 1 EACH FS ONE (04:21)
[2021-09-12] MEDS ORDERED: Morphine 4 MG/ML VIAL SLOW IVP PRN (04:26)
[2021-09-12] MEDS ORDERED: Propofol BOLUS 1,000 MG/100 ML VIAL IV PRN (04:30)
[2021-09-12] MEDS ORDERED: Fentanyl BOLUS 250 ML IVPB PRN (04:30)
[2021-09-12] MEDS ORDERED: DISCONTINUE PREVIOUS NARCOTIC PAIN MEDICATIONS AND BENZODIAZEPINES FS SCH (04:30)
[2021-09-12] MEDS ORDERED: Vecuronium 10 MG VIAL ONE (04:46)
[2021-09-12 04:48] LABS: O2 Tension (PaO2), arterial 36.9 mmHg (> 80.0)
[2021-09-12] MEDS ORDERED: Sterile Water 0 ML ONE (04:48)
[2021-09-12 04:49] LABS: Puncture Site RRA
[2021-09-12 05:22] LABS: Actual Bicarbonate (HCO3a) 20.8 mEq/L (22-28); Base Excess (BEa) -4.6 mEq/L (-2.0 to +3.0); CO2 Tension 39.4 mmHg (35.0-45.0); Carboxyhemoglobin (COHb) 0.3 gm% (0.0-3.0); Hemoglobin (Hb) 11.6 g/dL (14.0-18.0); O2 Tension (PaO2), arterial 71.7 mmHg (> 80.0); Potassium - ABG Lab 3.98 mmol/L (3.70-5.30); pH, Arterial 7.34 (7.35-7.45)
[2021-09-12 05:25] LABS: Puncture Site RRA
[2021-09-12 05:35] LABS: ALT (SGPT) 35 U/L (8-55); AST (SGOT) 22 U/L (5-34); Albumin 2.9 g/dL (3.4-4.8); Alkaline Phosphatase 87 U/L (40-110); Anion Gap 16 mmol/L (10-20); BUN (Urea Nitrogen) 24 mg/dL (8.4-25.7); Bilirubin, Total 0.9 mg/dL (0.2-1.2); Calc. Creatinine Clearance 112 mL/min (70-130); Calcium 8.5 mg/dL (7.8-10.44); Carbon Dioxide 20 mmol/L (23-31); Chloride 101 mmol/L (98-107); Globulin 3.5 g/dL (2.4-3.5); Glucose 178 mg/dL (80-115); Potassium 4.6 mmol/L (3.5-5.1); Protein, Total 6.4 g/dL (5.8-8.1); Sodium 132 mmol/L (136-145)
[2021-09-12 05:37] LABS: Band 48 % (5-11); Hemoglobin 12.3 g/dL (14.0-18.0); Hypochromia SLIGHT = 6-15 cells (100X) (0-5/hpf); Lymphocytes 8 % (21-51); MDiff Complete? YES; Macrocytosis SLIGHT = 6-15 cells (100X) (0-5/hpf); Mean Corpuscular HGB CONC 32.5 g/dL (32.0-36.0); Mean Corpuscular Hemoglobin 32.7 pg (27.0-31.0); Neutrophil 44 % (42-75); Platelet Count 123 thou/uL (130-400); Platelet Morphology Comment Appears Adequate; Red Blood Cell (RBC) Count 3.77 mill/uL (4.70-6.10)
[2021-09-12] MEDS: Propofol 1,000 MG/100 ML VIAL IV PRN ×2 (05:47→08:54)
[2021-09-12] MEDS: Lorazepam 2 MG/ML VIAL SLOW IVP PRN ×2 (05:48→07:46)
[2021-09-12] MEDS: Vecuronium 10 MG VIAL IV PRN ×3 (05:48→08:54)
[2021-09-12] MEDS: Morphine 4 MG/ML VIAL SLOW IVP PRN (05:49)
[2021-09-12] MEDS: Cefepime 2 GM in Sodium Chloride 0.9% 100 ML IVPB SCH ×3 (06:12→21:23)
[2021-09-12] MEDS: fentaNYL Citrate-0.9 % NaCl/PF 100 ML IV SCH (06:20)
[2021-09-12] MEDS: metroNIDAZOLE 500 MG in Premix Bag 1 BAG IVPB SCH ×3 (06:30→21:23)
[2021-09-12] MEDS: HumaLOG 300 UNITS/3 ML VIAL SC SCH ×3 (07:41→16:00)
[2021-09-12] MEDS: Lantus 1000 UNITS/10 ML VIAL SC SCH (07:42)
[2021-09-12] MEDS: Lisinopril 10 MG TAB PO SCH (07:42)
[2021-09-12] MEDS: Lidocaine 5% Patch TD SCH (07:43)
[2021-09-12] MEDS: methylPREDNISolone Sod Succ 40 MG VIAL IVP SCH ×2 (07:46→20:56)
[2021-09-12] MEDS: Polyethylene Glycol 3350 17 GM Packet PO SCH (07:46)
[2021-09-12] MEDS: busPIRone HCl 10 MG TAB PO SCH ×2 (07:46→20:56)
[2021-09-12] MEDS: Enoxaparin Sodium 80 MG/0.8 ML SYRINGE SC SCH ×2 (07:48→20:55)
[2021-09-12] MEDS: Mometasone 100 MCG/Formoterol 5 MCG 120 PUFF INHALER INH SCH ×2 (08:32→19:47)
[2021-09-12] MEDS: Sodium Chloride 0.65% Nasal 44 ML BOT EA NARE SCH ×3 (08:42→20:58)
[2021-09-12] MEDS: Fluticasone Propionate Nasal Spray 16 gm Bottle NASAL SCH (08:42)
[2021-09-12] MEDS: HumaLOG 300 UNITS/3 ML VIAL SC PRN ×2 (09:40→15:21)
[2021-09-12 13:10] LABS: Vancomycin, Trough 10.6 ug/mL
[2021-09-12] MEDS ORDERED: Albumin 25% 100 ML ONE (15:51)
[2021-09-12] MEDS: Albumin 25% 25 GM/100 ML BOT IVPB SCH (15:52)
[2021-09-12] MEDS ORDERED: Sodium Chloride 0.9% 1,000 ML IV SCH (16:30)
[2021-09-12] MEDS ORDERED: Albumin 5% 500 ML ONE (17:05)
[2021-09-12] MEDS: Transdermal Patch Removal TOP SCH (20:21)
[2021-09-12] MEDS: Famotidine/PF 20 mg/2ml Vial SLOW IVP SCH (20:56)
[2021-09-12] MEDS: Melatonin 3 MG TAB PO SCH (20:56)
[2021-09-12] MEDS: Atorvastatin Calcium 20 MG TAB PO SCH (20:56)
[2021-09-12] MEDS: diphenhydrAMINE 25 MG CAP PO SCH (20:57)
[2021-09-13 03:59] LABS: ALT (SGPT) 31 U/L (8-55); AST (SGOT) 19 U/L (5-34); Alkaline Phosphatase 65 U/L (40-110); Anion Gap 13 mmol/L (10-20); BUN (Urea Nitrogen) 19 mg/dL (8.4-25.7); Bilirubin, Total 0.8 mg/dL (0.2-1.2); CRP (Inflammatory) 17.36 mg/dL (= or < 0.5); Calc. Creatinine Clearance 125 mL/min (70-130); Carbon Dioxide 21 mmol/L (23-31); Chloride 102 mmol/L (98-107); Globulin 2.6 g/dL (2.4-3.5); Glucose 116 mg/dL (80-115); Potassium 4.6 mmol/L (3.5-5.1); Protein, Total 5.6 g/dL (5.8-8.1); Sodium 131 mmol/L (136-145)
[2021-09-13 04:12] LABS: Band 21 % (5-11); Hemoglobin 9.2 g/dL (14.0-18.0); Lymphocytes 6 % (21-51); MDiff Complete? YES; Mean Corpuscular HGB CONC 32.6 g/dL (32.0-36.0); Mean Corpuscular Hemoglobin 32.5 pg (27.0-31.0); Mean Corpuscular Volume 99.8 fL (78.0-98.0); Mean Platelet Volume 8.1 fL (7.4-10.4); Monocytes 1 % (0-10); Neutrophil 72 % (42-75); Platelet Count 82 thou/uL (130-400); Platelet Morphology Comment Appears Decreased; Red Blood Cell (RBC) Count 2.84 mill/uL (4.70-6.10); White Blood Cell (WBC) Count 7.5 thou/uL (4.8-10.8)
[2021-09-13] MEDS: Propofol 1,000 MG/100 ML VIAL IV PRN ×2 (04:46→14:30)
[2021-09-13] MEDS: Vancomycin 1 GM in Premix Bag 1 BAG IVPB SCH ×3 (04:46→21:15)
[2021-09-13] MEDS: Sodium Chloride 0.45% 1,000 ML IV SCH ×4 (04:46→21:17)
[2021-09-13] MEDS: metroNIDAZOLE 500 MG in Premix Bag 1 BAG IVPB SCH (05:39)
[2021-09-13] MEDS: Cefepime 2 GM in Sodium Chloride 0.9% 100 ML IVPB SCH ×3 (06:23→21:16)
[2021-09-13] MEDS: HumaLOG 300 UNITS/3 ML VIAL SC SCH ×3 (07:15→13:40)
[2021-09-13] MEDS: Enoxaparin Sodium 80 MG/0.8 ML SYRINGE SC SCH ×2 (07:18→20:32)
[2021-09-13] MEDS: Polyethylene Glycol 3350 17 GM Packet PO SCH (07:18)
[2021-09-13] MEDS: busPIRone HCl 10 MG TAB PO SCH ×2 (07:18→20:33)
[2021-09-13] MEDS: methylPREDNISolone Sod Succ 40 MG VIAL IVP SCH ×2 (07:19→20:32)
[2021-09-13] MEDS: Famotidine/PF 20 mg/2ml Vial SLOW IVP SCH ×2 (07:19→20:32)
[2021-09-13] MEDS: Sodium Chloride 0.65% Nasal 44 ML BOT EA NARE SCH ×3 (07:25→20:35)
[2021-09-13] MEDS: Lantus 1000 UNITS/10 ML VIAL SC SCH (07:25)
[2021-09-13] MEDS: Lisinopril 10 MG TAB PO SCH (07:25)
[2021-09-13] MEDS: Lidocaine 5% Patch TD SCH (07:25)
[2021-09-13] MEDS: Mometasone 100 MCG/Formoterol 5 MCG 120 PUFF INHALER INH SCH ×2 (07:45→19:12)
[2021-09-13] MEDS: Lorazepam 2 MG/ML VIAL SLOW IVP PRN ×2 (09:03→21:20)
[2021-09-13] MEDS: Fluticasone Propionate Nasal Spray 16 gm Bottle NASAL SCH (09:03)
[2021-09-13] MEDS: Midazolam In 0.9 % NaCl/PF 100 ML IVPB SCH (09:57)
[2021-09-13] MEDS: HumaLOG 300 UNITS/3 ML VIAL SC PRN ×2 (10:42→15:31)
[2021-09-13] MEDS: fentaNYL Citrate-0.9 % NaCl/PF 100 ML IV SCH (13:02)
[2021-09-13 13:27] LABS: Vancomycin, Trough 21.4 ug/mL
[2021-09-13] MEDS: diphenhydrAMINE 25 MG CAP PO SCH (20:32)
[2021-09-13] MEDS: Melatonin 3 MG TAB PO SCH (20:33)
[2021-09-13] MEDS: Atorvastatin Calcium 20 MG TAB PO SCH (20:34)
[2021-09-13] MEDS: Transdermal Patch Removal TOP SCH (20:35)
[2021-09-13] MEDS: Vecuronium 10 MG VIAL IV PRN (21:20)
[2021-09-14] MEDS: Lorazepam 2 MG/ML VIAL SLOW IVP PRN (02:52)
[2021-09-14] MEDS: Vecuronium 10 MG VIAL IV PRN ×3 (02:52→10:03)
[2021-09-14 04:03] LABS: Hemoglobin 10.3 g/dL (14.0-18.0); Mean Corpuscular HGB CONC 33.1 g/dL (32.0-36.0); Mean Corpuscular Hemoglobin 32.8 pg (27.0-31.0); Mean Corpuscular Volume 99.2 fL (78.0-98.0); Mean Platelet Volume 8.6 fL (7.4-10.4); Platelet Count 95 thou/uL (130-400); RBC Distribution Width 12.2 % (11.5-14.5); Red Blood Cell (RBC) Count 3.15 mill/uL (4.70-6.10); White Blood Cell (WBC) Count 6.2 thou/uL (4.8-10.8)
[2021-09-14 04:14] LABS: ALT (SGPT) 31 U/L (8-55); AST (SGOT) 18 U/L (5-34); Albumin 2.7 g/dL (3.4-4.8); Alkaline Phosphatase 62 U/L (40-110); Anion Gap 14 mmol/L (10-20); BUN (Urea Nitrogen) 16 mg/dL (8.4-25.7); Bilirubin, Total 0.7 mg/dL (0.2-1.2); Calc. Creatinine Clearance 128 mL/min (70-130); Calcium 8.1 mg/dL (7.8-10.44); Carbon Dioxide 22 mmol/L (23-31); Chloride 98 mmol/L (98-107); Globulin 2.8 g/dL (2.4-3.5); Glucose 246 mg/dL (80-115); Magnesium 1.7 mg/dL (1.6-2.6); Potassium 4.3 mmol/L (3.5-5.1); Protein, Total 5.5 g/dL (5.8-8.1); Sodium 130 mmol/L (136-145)
[2021-09-14 04:40] LABS: Band 27 % (5-11); Lymphocytes 11 % (21-51); MDiff Complete? YES; Monocytes 1 % (0-10); Neutrophil 61 % (42-75); Platelet Morphology Comment Appears Decreased
[2021-09-14] MEDS: Propofol 1,000 MG/100 ML VIAL IV PRN (05:09)
[2021-09-14] MEDS: Cefepime 2 GM in Sodium Chloride 0.9% 100 ML IVPB SCH ×3 (05:09→22:57)
[2021-09-14] MEDS: Vancomycin 1 GM in Premix Bag 1 BAG IVPB SCH ×3 (05:10→23:21)
[2021-09-14] MEDS: HumaLOG 300 UNITS/3 ML VIAL SC PRN ×3 (05:16→20:58)
[2021-09-14] MEDS: Sodium Chloride 0.45% 1,000 ML IV SCH ×2 (06:50→16:58)
[2021-09-14] MEDS: HumaLOG 300 UNITS/3 ML VIAL SC SCH ×3 (07:12→16:57)
[2021-09-14] MEDS: Lantus 1000 UNITS/10 ML VIAL SC SCH (07:13)
[2021-09-14] MEDS: Fluticasone Propionate Nasal Spray 16 gm Bottle NASAL SCH (07:13)
[2021-09-14] MEDS: Lidocaine 5% Patch TD SCH (07:13)
[2021-09-14] MEDS: Lisinopril 10 MG TAB PO SCH (07:13)
[2021-09-14] MEDS: Sodium Chloride 0.65% Nasal 44 ML BOT EA NARE SCH ×2 (07:14→20:13)
[2021-09-14] MEDS: Polyethylene Glycol 3350 17 GM Packet PO SCH (07:14)
[2021-09-14] MEDS: Midazolam In 0.9 % NaCl/PF 100 ML IVPB SCH (07:16)
[2021-09-14] MEDS: Famotidine 20 MG TAB PO SCH ×2 (07:17→20:12)
[2021-09-14] MEDS: methylPREDNISolone Sod Succ 40 MG VIAL IVP SCH ×2 (07:17→20:11)
[2021-09-14] MEDS: busPIRone HCl 10 MG TAB PO SCH ×2 (07:19→20:11)
[2021-09-14] MEDS: Mometasone 100 MCG/Formoterol 5 MCG 120 PUFF INHALER INH SCH ×2 (07:31→18:55)
[2021-09-14 07:53] LABS: Actual Bicarbonate (HCO3a) 24.2 mEq/L (22-28); Base Excess (BEa) -0.5 mEq/L (-2.0 to +3.0); CO2 Tension 39.9 mmHg (35.0-45.0); Calcium, Ionized (arterial) 1.11 mmol/L (1.12-1.30); Carboxyhemoglobin (COHb) 0.3 gm% (0.0-3.0); Hemoglobin (Hb) 10.8 g/dL (14.0-18.0); O2 Tension (PaO2), arterial 82.1 mmHg (> 80.0); Potassium - ABG Lab 3.99 mmol/L (3.70-5.30)
[2021-09-14 07:57] LABS: Puncture Site RRA
[2021-09-14 07:59] LABS: ALV-art Gradient 224.525 mmHg (0-20)
[2021-09-14] MEDS: Enoxaparin Sodium 80 MG/0.8 ML SYRINGE SC SCH ×2 (09:16→20:12)
[2021-09-14] MEDS: diphenhydrAMINE 25 MG CAP PO SCH (20:12)
[2021-09-14] MEDS: Atorvastatin Calcium 20 MG TAB PO SCH (20:12)
[2021-09-14] MEDS: Melatonin 3 MG TAB PO SCH (20:12)
[2021-09-14 21:39] LABS: Vancomycin, Trough 22.7 ug/mL
[2021-09-14] MEDS: VANCOMYCIN 1.25 GM/250 ML BAG 1.25 GM in Premix Bag 1 BAG IVPB SCH (22:44)
[2021-09-14] MEDS: Transdermal Patch Removal TOP SCH (23:19)
[2021-09-15] MEDS: Sodium Chloride 0.45% 1,000 ML IV SCH ×2 (01:49→15:49)
[2021-09-15] MEDS: HumaLOG 300 UNITS/3 ML VIAL SC PRN ×3 (04:55→22:00)
[2021-09-15] MEDS: Cefepime 2 GM in Sodium Chloride 0.9% 100 ML IVPB SCH ×3 (05:07→21:41)
[2021-09-15 05:26] LABS: ALT (SGPT) 32 U/L (8-55); AST (SGOT) 23 U/L (5-34); Albumin 2.6 g/dL (3.4-4.8); Alkaline Phosphatase 59 U/L (40-110); Anion Gap 12 mmol/L (10-20); BUN (Urea Nitrogen) 19 mg/dL (8.4-25.7); Bilirubin, Total 0.6 mg/dL (0.2-1.2); CRP (Inflammatory) 10.55 mg/dL (= or < 0.5); Calc. Creatinine Clearance 120 mL/min (70-130); Calcium 8.1 mg/dL (7.8-10.44); Carbon Dioxide 27 mmol/L (23-31); Chloride 96 mmol/L (98-107); Globulin 3.1 g/dL (2.4-3.5); Glucose 278 mg/dL (80-115); Magnesium 1.6 mg/dL (1.6-2.6); Potassium 4.7 mmol/L (3.5-5.1); Protein, Total 5.7 g/dL (5.8-8.1); Sodium 130 mmol/L (136-145)
[2021-09-15] MEDS: Mometasone 100 MCG/Formoterol 5 MCG 120 PUFF INHALER INH SCH ×2 (07:12→19:40)
[2021-09-15 07:43] LABS: Band 11 % (5-11); Hemoglobin 10.4 g/dL (14.0-18.0); Lymphocytes 9 % (21-51); MDiff Complete? YES; Mean Corpuscular HGB CONC 32.9 g/dL (32.0-36.0); Mean Corpuscular Hemoglobin 32.3 pg (27.0-31.0); Mean Corpuscular Volume 98.3 fL (78.0-98.0); Mean Platelet Volume 9.2 fL (7.4-10.4); Metamyelocyte 1 % (0-0); Monocytes 2 % (0-10); Myelocyte 2 % (0-0); Neutrophil 75 % (42-75); Platelet Count 109 thou/uL (130-400); Platelet Morphology Comment Appears Decreased; RBC Distribution Width 11.9 % (11.5-14.5); RBC Morphology Normal; Red Blood Cell (RBC) Count 3.21 mill/uL (4.70-6.10); White Blood Cell (WBC) Count 6.1 thou/uL (4.8-10.8)
[2021-09-15] MEDS: Enoxaparin Sodium 80 MG/0.8 ML SYRINGE SC SCH ×2 (08:49→21:28)
[2021-09-15] MEDS: Polyethylene Glycol 3350 17 GM Packet PO SCH (08:49)
[2021-09-15] MEDS: Famotidine 20 MG TAB PO SCH ×2 (08:49→21:29)
[2021-09-15] MEDS: methylPREDNISolone Sod Succ 40 MG VIAL IVP SCH ×2 (08:50→21:29)
[2021-09-15] MEDS: busPIRone HCl 10 MG TAB PO SCH ×2 (08:50→21:29)
[2021-09-15] MEDS: Lisinopril 10 MG TAB PO SCH (08:50)
[2021-09-15] MEDS: Lidocaine 5% Patch TD SCH (08:51)
[2021-09-15] MEDS: Fluticasone Propionate Nasal Spray 16 gm Bottle NASAL SCH (08:51)
[2021-09-15] MEDS: Sodium Chloride 0.65% Nasal 44 ML BOT EA NARE SCH ×3 (08:52→20:29)
[2021-09-15] MEDS: Midazolam In 0.9 % NaCl/PF 100 ML IVPB SCH (08:57)
[2021-09-15] MEDS: Lantus 1000 UNITS/10 ML VIAL SC SCH (09:00)
[2021-09-15] MEDS: Fentanyl CADD 100 ML IV SCH (10:37)
[2021-09-15] MEDS: VANCOMYCIN 1.25 GM/250 ML BAG 1.25 GM in Premix Bag 1 BAG IVPB SCH ×2 (10:42→23:17)
[2021-09-15] MEDS ORDERED: Sodium Chloride 0.9% 500 ML IVPB SCH (16:45)
[2021-09-15] MEDS: Sodium Chloride 0.9% 1,000 ML IV SCH ×2 (17:05→21:24)
[2021-09-15] MEDS: Transdermal Patch Removal TOP SCH (20:31)
[2021-09-15] MEDS ORDERED: Sodium Chloride 0.9% 500 ML IV SCH (20:45)
[2021-09-15] MEDS: diphenhydrAMINE 25 MG CAP PO SCH (21:28)
[2021-09-15] MEDS: Melatonin 3 MG TAB PO SCH (21:29)
[2021-09-15] MEDS: Atorvastatin Calcium 20 MG TAB PO SCH (21:29)
[2021-09-16] MEDS: HumaLOG 300 UNITS/3 ML VIAL SC PRN ×4 (04:18→22:29)
[2021-09-16 05:05] LABS: Band 13 % (5-11); Hemoglobin 9.8 g/dL (14.0-18.0); Hypochromia SLIGHT = 6-15 cells (100X) (0-5/hpf); Lymphocytes 11 % (21-51); MDiff Complete? YES; Mean Corpuscular HGB CONC 33.6 g/dL (32.0-36.0); Mean Corpuscular Hemoglobin 32.7 pg (27.0-31.0); Mean Corpuscular Volume 97.2 fL (78.0-98.0); Mean Platelet Volume 8.9 fL (7.4-10.4); Monocytes 9 % (0-10); Neutrophil 67 % (42-75); Platelet Count 120 thou/uL (130-400); Platelet Morphology Comment Appears Decreased; Red Blood Cell (RBC) Count 2.99 mill/uL (4.70-6.10); White Blood Cell (WBC) Count 5.6 thou/uL (4.8-10.8)
[2021-09-16 05:13] LABS: ALT (SGPT) 38 U/L (8-55); AST (SGOT) 24 U/L (5-34); Albumin 2.5 g/dL (3.4-4.8); Alkaline Phosphatase 49 U/L (40-110); Anion Gap 12 mmol/L (10-20); BUN (Urea Nitrogen) 21 mg/dL (8.4-25.7); Bilirubin, Total 0.6 mg/dL (0.2-1.2); CRP (Inflammatory) 9.77 mg/dL (= or < 0.5); Calc. Creatinine Clearance 128 mL/min (70-130); Calcium 7.9 mg/dL (7.8-10.44); Carbon Dioxide 24 mmol/L (23-31); Chloride 98 mmol/L (98-107); Globulin 2.9 g/dL (2.4-3.5); Glucose 281 mg/dL (80-115); Magnesium 1.6 mg/dL (1.6-2.6); Potassium 4.4 mmol/L (3.5-5.1); Protein, Total 5.4 g/dL (5.8-8.1); Sodium 130 mmol/L (136-145)
[2021-09-16] MEDS: Cefepime 2 GM in Sodium Chloride 0.9% 100 ML IVPB SCH (06:27)
[2021-09-16] MEDS: Mometasone 100 MCG/Formoterol 5 MCG 120 PUFF INHALER INH SCH ×2 (07:48→18:50)
[2021-09-16 08:22] LABS: Actual Bicarbonate (HCO3a) 24.6 mEq/L (22-28); Base Excess (BEa) 0.7 mEq/L (-2.0 to +3.0); CO2 Tension 36.5 mmHg (35.0-45.0); Calcium, Ionized (arterial) 1.09 mmol/L (1.12-1.30); Hemoglobin (Hb) 9.6 g/dL (14.0-18.0); Potassium - ABG Lab 4.15 mmol/L (3.70-5.30); pH, Arterial 7.45 (7.35-7.45)
[2021-09-16 08:23] LABS: Puncture Site RRA
[2021-09-16 08:24] LABS: ALV-art Gradient 179.575 mmHg (0-20)
[2021-09-16] MEDS ORDERED: Norepinephrine 8 MG/0.9% NS 250 ML ONE (08:37)
[2021-09-16] MEDS ORDERED: Piperacillin/Tazobactam 3.375 GM in Sodium Chloride 0.9% 100 ML IVPB SCH (08:45)
[2021-09-16] MEDS ORDERED: Lantus 1000 UNITS/10 ML VIAL SC SCH ×2 (09:00)
[2021-09-16] MEDS: busPIRone HCl 10 MG TAB PO SCH ×2 (09:27→20:42)
[2021-09-16] MEDS: methylPREDNISolone Sod Succ 40 MG VIAL IVP SCH ×2 (09:28→20:41)
[2021-09-16] MEDS: Lisinopril 10 MG TAB PO SCH (09:28)
[2021-09-16] MEDS: Pantoprazole 40 MG VIAL IVP SCH ×2 (09:30→20:42)
[2021-09-16] MEDS: Enoxaparin Sodium 80 MG/0.8 ML SYRINGE SC SCH ×2 (09:30→20:41)
[2021-09-16] MEDS: Fluticasone Propionate Nasal Spray 16 gm Bottle NASAL SCH (09:30)
[2021-09-16] MEDS: Lidocaine 5% Patch TD SCH (09:30)
[2021-09-16] MEDS: Polyethylene Glycol 3350 17 GM Packet PO SCH (09:34)
[2021-09-16] MEDS: Sodium Chloride 0.65% Nasal 44 ML BOT EA NARE SCH ×3 (09:35→20:01)
[2021-09-16] MEDS: Midazolam In 0.9 % NaCl/PF 100 ML IVPB SCH (09:54)
[2021-09-16] MEDS: VANCOMYCIN 1.25 GM/250 ML BAG 1.25 GM in Premix Bag 1 BAG IVPB SCH ×2 (10:21→23:10)
[2021-09-16] MEDS: Sodium Chloride 0.9% 1,000 ML IV SCH ×3 (10:21→21:22)
[2021-09-16] MEDS ORDERED: Piperacillin/Tazobactam 4.5 GM in Sodium Chloride 0.9% 100 ML IVPB SCH (12:00)
[2021-09-16] MEDS: Piperacillin/Tazobactam 3.375 GM in Sodium Chloride 0.9% 100 ML IVPB SCH ×2 (14:23→22:29)
[2021-09-16 15:15] LABS: Iron 50 ug/dL (65-175); Iron Binding Capacity, Total 133 mcg/dL (261-462)
[2021-09-16] MEDS: Atorvastatin Calcium 20 MG TAB PO SCH (20:41)
[2021-09-16] MEDS: Melatonin 3 MG TAB PO SCH (20:41)
[2021-09-16] MEDS: diphenhydrAMINE 25 MG CAP PO SCH (20:41)
[2021-09-16] MEDS: Transdermal Patch Removal TOP SCH (20:42)
[2021-09-16] MEDS ORDERED: Albuterol Sulfate 1.25 MG/3 ML NEB ONE (21:58)
[2021-09-16 22:22] LABS: Vancomycin, Trough 16.1 ug/mL
[2021-09-17] MEDS: Fentanyl CADD 100 ML IV SCH (03:36)
[2021-09-17] MEDS: HumaLOG 300 UNITS/3 ML VIAL SC PRN ×4 (05:01→21:30)
[2021-09-17 05:22] LABS: Band 26 % (5-11); Hemoglobin 9.8 g/dL (14.0-18.0); Lymphocytes 6 % (21-51); MDiff Complete? YES; Mean Corpuscular HGB CONC 32.4 g/dL (32.0-36.0); Mean Corpuscular Volume 98.6 fL (78.0-98.0); Mean Platelet Volume 8.1 fL (7.4-10.4); Monocytes 7 % (0-10); Neutrophil 61 % (42-75); Platelet Count 153 thou/uL (130-400); Platelet Morphology Comment Appears Adequate; RBC Distribution Width 12.3 % (11.5-14.5); RBC Morphology Normal; Red Blood Cell (RBC) Count 3.07 mill/uL (4.70-6.10); White Blood Cell (WBC) Count 4.5 thou/uL (4.8-10.8)
[2021-09-17 05:39] LABS: Bilirubin, Total 0.5 mg/dL (0.2-1.2); Calcium 7.8 mg/dL (7.8-10.44); Chloride 98 mmol/L (98-107); Potassium 4.2 mmol/L (3.5-5.1); Sodium 134 mmol/L (136-145)
[2021-09-17 05:44] LABS: Albumin 2.5 g/dL (3.4-4.8)
[2021-09-17 05:46] LABS: Glucose 284 mg/dL (80-115)
[2021-09-17 05:47] LABS: Globulin 2.6 g/dL (2.4-3.5); Protein, Total 5.1 g/dL (5.8-8.1)
[2021-09-17 05:48] LABS: Anion Gap 17 mmol/L (10-20); Carbon Dioxide 24 mmol/L (23-31)
[2021-09-17 05:49] LABS: Alkaline Phosphatase 52 U/L (40-110)
[2021-09-17 05:50] LABS: Calc. Creatinine Clearance 123 mL/min (70-130)
[2021-09-17 05:51] LABS: BUN (Urea Nitrogen) 21 mg/dL (8.4-25.7)
[2021-09-17 05:52] LABS: ALT (SGPT) 48 U/L (8-55); AST (SGOT) 22 U/L (5-34)
[2021-09-17] MEDS: Piperacillin/Tazobactam 3.375 GM in Sodium Chloride 0.9% 100 ML IVPB SCH ×3 (05:57→21:32)
[2021-09-17] MEDS: Mometasone 100 MCG/Formoterol 5 MCG 120 PUFF INHALER INH SCH ×2 (07:59→19:06)
[2021-09-17] MEDS: Enoxaparin Sodium 80 MG/0.8 ML SYRINGE SC SCH ×2 (08:13→21:27)
[2021-09-17] MEDS: busPIRone HCl 10 MG TAB PO SCH ×2 (08:14→21:27)
[2021-09-17] MEDS: Fluticasone Propionate Nasal Spray 16 gm Bottle NASAL SCH (08:14)
[2021-09-17] MEDS: Lisinopril 10 MG TAB PO SCH (08:14)
[2021-09-17] MEDS: Lidocaine 5% Patch TD SCH (08:14)
[2021-09-17] MEDS: methylPREDNISolone Sod Succ 40 MG VIAL IVP SCH ×2 (08:14→21:27)
[2021-09-17] MEDS: Pantoprazole 40 MG VIAL IVP SCH ×2 (08:16→21:27)
[2021-09-17] MEDS: Sodium Chloride 0.65% Nasal 44 ML BOT EA NARE SCH ×3 (08:16→20:02)
[2021-09-17] MEDS: Polyethylene Glycol 3350 17 GM Packet PO SCH (08:16)
[2021-09-17] MEDS: Lantus 1000 UNITS/10 ML VIAL SC SCH (09:20)
[2021-09-17] MEDS: VANCOMYCIN 1.25 GM/250 ML BAG 1.25 GM in Premix Bag 1 BAG IVPB SCH ×2 (10:57→23:54)
[2021-09-17] MEDS: Sodium Chloride 0.9% 1,000 ML IV SCH ×2 (10:59→15:44)
[2021-09-17] MEDS: Midazolam In 0.9 % NaCl/PF 100 ML IVPB SCH (11:10)
[2021-09-17] MEDS: diphenhydrAMINE 25 MG CAP PO SCH (20:03)
[2021-09-17] MEDS: Transdermal Patch Removal TOP SCH (20:04)
[2021-09-17] MEDS ORDERED: Lantus 1000 UNITS/10 ML VIAL SC SCH (21:00)
[2021-09-17] MEDS: Atorvastatin Calcium 20 MG TAB PO SCH (21:27)
[2021-09-17] MEDS: Melatonin 3 MG TAB PO SCH (21:27)
[2021-09-18] MEDS: Sodium Chloride 0.9% 1,000 ML IV SCH ×2 (00:35→11:10)
[2021-09-18] MEDS: HumaLOG 300 UNITS/3 ML VIAL SC PRN ×2 (04:47→18:29)
[2021-09-18 05:29] LABS: Band 25 % (5-11); Hemoglobin 9.8 g/dL (14.0-18.0); Hypochromia SLIGHT = 6-15 cells (100X) (0-5/hpf); Lymphocytes 17 % (21-51); MDiff Complete? YES; Mean Corpuscular HGB CONC 32.9 g/dL (32.0-36.0); Mean Corpuscular Hemoglobin 32.6 pg (27.0-31.0); Mean Corpuscular Volume 99.2 fL (78.0-98.0); Mean Platelet Volume 8.3 fL (7.4-10.4); Monocytes 7 % (0-10); Neutrophil 51 % (42-75); Platelet Count 171 thou/uL (130-400); Platelet Morphology Comment Appears Adequate; RBC Distribution Width 12.4 % (11.5-14.5); Red Blood Cell (RBC) Count 3.02 mill/uL (4.70-6.10); White Blood Cell (WBC) Count 4.2 thou/uL (4.8-10.8)
[2021-09-18 05:36] LABS: ALT (SGPT) 44 U/L (8-55); AST (SGOT) 18 U/L (5-34); Albumin 2.6 g/dL (3.4-4.8); Alkaline Phosphatase 45 U/L (40-110); Anion Gap 13 mmol/L (10-20); BUN (Urea Nitrogen) 20 mg/dL (8.4-25.7); Bilirubin, Total 0.4 mg/dL (0.2-1.2); Calc. Creatinine Clearance 135 mL/min (70-130); Carbon Dioxide 26 mmol/L (23-31); Chloride 98 mmol/L (98-107); Glucose 263 mg/dL (80-115); Potassium 4.3 mmol/L (3.5-5.1); Protein, Total 5.6 g/dL (5.8-8.1); Sodium 133 mmol/L (136-145)
[2021-09-18] MEDS: Piperacillin/Tazobactam 3.375 GM in Sodium Chloride 0.9% 100 ML IVPB SCH ×3 (06:00→21:38)
[2021-09-18] MEDS: Mometasone 100 MCG/Formoterol 5 MCG 120 PUFF INHALER INH SCH ×2 (07:44→19:21)
[2021-09-18 08:43] LABS: Actual Bicarbonate (HCO3a) 27.5 mEq/L (22-28); Analyzer IN Cardio ER; Base Excess (BEa) 3.3 mEq/L (-2.0 to +3.0); CO2 Tension 39.9 mmHg (35.0-45.0); Calcium, Ionized (arterial) 1.08 mmol/L (1.12-1.30); Carboxyhemoglobin (COHb) 0.9 gm% (0.0-3.0); Hemoglobin (Hb) 7.9 g/dL (14.0-18.0); Potassium - ABG Lab 4.17 mmol/L (3.70-5.30); pH, Arterial 7.46 (7.35-7.45)
[2021-09-18 08:44] LABS: Puncture Site RRA
[2021-09-18 08:45] LABS: ALV-art Gradient 181.325 mmHg (0-20)
[2021-09-18] MEDS: Lidocaine 5% Patch TD SCH (10:00)
[2021-09-18 10:33] LABS: Vancomycin, Trough 18.2 ug/mL
[2021-09-18] MEDS: Polyethylene Glycol 3350 17 GM Packet PO SCH (10:37)
[2021-09-18] MEDS: Enoxaparin Sodium 80 MG/0.8 ML SYRINGE SC SCH ×2 (10:37→21:39)
[2021-09-18] MEDS: Pantoprazole 40 MG VIAL IVP SCH ×2 (10:39→21:39)
[2021-09-18] MEDS: HumaLOG 300 UNITS/3 ML VIAL SC SCH ×4 (10:40→21:48)
[2021-09-18] MEDS: Lantus 1000 UNITS/10 ML VIAL SC SCH ×2 (10:44→21:49)
[2021-09-18] MEDS: methylPREDNISolone Sod Succ 40 MG VIAL IVP SCH (11:23)
[2021-09-18] MEDS: VANCOMYCIN 1.25 GM/250 ML BAG 1.25 GM in Premix Bag 1 BAG IVPB SCH ×2 (11:25→23:51)
[2021-09-18] MEDS: Midazolam In 0.9 % NaCl/PF 100 ML IVPB SCH (11:36)
[2021-09-18] MEDS: busPIRone HCl 10 MG TAB PO SCH ×2 (11:56→21:40)
[2021-09-18] MEDS: Fluticasone Propionate Nasal Spray 16 gm Bottle NASAL SCH (12:39)
[2021-09-18] MEDS: Sodium Chloride 0.65% Nasal 44 ML BOT EA NARE SCH ×3 (12:40→19:33)
[2021-09-18] MEDS: Lisinopril 10 MG TAB PO SCH (12:40)
[2021-09-18] MEDS: diphenhydrAMINE 25 MG CAP PO SCH (19:33)
[2021-09-18] MEDS: Transdermal Patch Removal TOP SCH (19:34)
[2021-09-18] MEDS: Melatonin 3 MG TAB PO SCH (21:39)
[2021-09-18] MEDS: Atorvastatin Calcium 20 MG TAB PO SCH (21:40)
[2021-09-19 04:51] LABS: ALT (SGPT) 40 U/L (8-55); AST (SGOT) 20 U/L (5-34); Albumin 2.6 g/dL (3.4-4.8); Alkaline Phosphatase 46 U/L (40-110); Anion Gap 13 mmol/L (10-20); BUN (Urea Nitrogen) 23 mg/dL (8.4-25.7); Bilirubin, Total 0.5 mg/dL (0.2-1.2); Calc. Creatinine Clearance 124 mL/min (70-130); Calcium 8.2 mg/dL (7.8-10.44); Carbon Dioxide 30 mmol/L (23-31); Chloride 94 mmol/L (98-107); Globulin 3.2 g/dL (2.4-3.5); Glucose 95 mg/dL (80-115); Potassium 3.7 mmol/L (3.5-5.1); Protein, Total 5.8 g/dL (5.8-8.1); Sodium 133 mmol/L (136-145)
[2021-09-19 05:47] LABS: Hemoglobin 10.3 g/dL (14.0-18.0); Mean Corpuscular HGB CONC 32.3 g/dL (32.0-36.0); Mean Corpuscular Volume 98.9 fL (78.0-98.0); Mean Platelet Volume 7.6 fL (7.4-10.4); Platelet Count 188 thou/uL (130-400); RBC Distribution Width 12.6 % (11.5-14.5); Red Blood Cell (RBC) Count 3.22 mill/uL (4.70-6.10)
[2021-09-19 05:48] LABS: Band 26 % (5-11); Blast 1 % (0-0); Lymphocytes 19 % (21-51); MDiff Complete? YES; Macrocytosis SLIGHT = 6-15 cells (100X) (0-5/hpf); Metamyelocyte 1 % (0-0); Monocytes 3 % (0-10); Myelocyte 4 % (0-0); Neutrophil 45 % (42-75); Nucleated RBC 1 % (0); Ovalocytes SLIGHT = 2-5 cells (100X) (0-1/hpf); Platelet Morphology Comment Appears Adequate; Polychromasia SLIGHT = 2-3 cells (100X) (0-2/hpf); Reactive Lymphocytes 1 % (0-10); Stomatocytes SLIGHT = 2-5 cells (100X) (0-1/hpf)
[2021-09-19] MEDS: HumaLOG 300 UNITS/3 ML VIAL SC SCH ×3 (05:57→22:26)
[2021-09-19] MEDS: Piperacillin/Tazobactam 3.375 GM in Sodium Chloride 0.9% 100 ML IVPB SCH (05:58)
[2021-09-19] MEDS: Mometasone 100 MCG/Formoterol 5 MCG 120 PUFF INHALER INH SCH ×2 (06:21→17:58)
[2021-09-19] MEDS: Lorazepam 2 MG/ML VIAL SLOW IVP PRN ×3 (06:44→22:47)
[2021-09-19] MEDS: methylPREDNISolone Sod Succ 40 MG VIAL IVP SCH (08:48)
[2021-09-19] MEDS: Polyethylene Glycol 3350 17 GM Packet PO SCH (08:48)
[2021-09-19] MEDS: Lisinopril 10 MG TAB PO SCH (08:49)
[2021-09-19] MEDS: Enoxaparin Sodium 80 MG/0.8 ML SYRINGE SC SCH ×2 (08:49→20:44)
[2021-09-19] MEDS: Pantoprazole 40 MG VIAL IVP SCH ×2 (08:49→20:45)
[2021-09-19] MEDS: Midazolam In 0.9 % NaCl/PF 100 ML IVPB SCH (08:50)
[2021-09-19] MEDS: busPIRone HCl 10 MG TAB PO SCH ×2 (09:02→20:44)
[2021-09-19] MEDS: Fluticasone Propionate Nasal Spray 16 gm Bottle NASAL SCH (09:03)
[2021-09-19] MEDS: Lantus 1000 UNITS/10 ML VIAL SC SCH ×2 (09:03→20:57)
[2021-09-19] MEDS: Lidocaine 5% Patch TD SCH ×2 (09:03→09:20)
[2021-09-19] MEDS: Sodium Chloride 0.65% Nasal 44 ML BOT EA NARE SCH ×3 (09:04→20:57)
[2021-09-19] MEDS: Sodium Chloride 0.9% 1,000 ML IV SCH ×3 (09:22→22:26)
[2021-09-19] MEDS: VANCOMYCIN 1.25 GM/250 ML BAG 1.25 GM in Premix Bag 1 BAG IVPB SCH (11:55)
[2021-09-19] MEDS: Ampicillin/Sulbactam 3 GM in Sodium Chloride 0.9% 100 ML IVPB SCH ×2 (12:35→20:42)
[2021-09-19] MEDS: Acetaminophen 325 MG TAB PO PRN (14:00)
[2021-09-19] MEDS ORDERED: Norepinephrine 8 MG/0.9% NS 250 ML ONE (17:33)
[2021-09-19] MEDS ORDERED: Norepinephrine 8 MG/0.9% NS 250 ML IVPB SCH (18:00)
[2021-09-19] MEDS: diphenhydrAMINE 25 MG CAP PO SCH (20:45)
[2021-09-19] MEDS: Melatonin 3 MG TAB PO SCH (20:45)
[2021-09-19] MEDS: Atorvastatin Calcium 20 MG TAB PO SCH (20:45)
[2021-09-19] MEDS: Transdermal Patch Removal TOP SCH (20:57)
[2021-09-20] MEDS: Ampicillin/Sulbactam 3 GM in Sodium Chloride 0.9% 100 ML IVPB SCH ×4 (00:15→18:12)
[2021-09-20] MEDS: Lorazepam 2 MG/ML VIAL SLOW IVP PRN (00:37)
[2021-09-20 03:42] LABS: Band 14 % (5-11); Hemoglobin 10.2 g/dL (14.0-18.0); Hypochromia SLIGHT = 6-15 cells (100X) (0-5/hpf); Lymphocytes 11 % (21-51); MDiff Complete? YES; Mean Corpuscular HGB CONC 32.6 g/dL (32.0-36.0); Mean Corpuscular Hemoglobin 31.7 pg (27.0-31.0); Mean Corpuscular Volume 97.5 fL (78.0-98.0); Mean Platelet Volume 7.1 fL (7.4-10.4); Monocytes 7 % (0-10); Neutrophil 67 % (42-75); Platelet Count 199 thou/uL (130-400); Platelet Morphology Comment Appears Adequate; RBC Distribution Width 12.9 % (11.5-14.5); Reactive Lymphocytes 1 % (0-10); Red Blood Cell (RBC) Count 3.23 mill/uL (4.70-6.10); White Blood Cell (WBC) Count 5.9 thou/uL (4.8-10.8)
[2021-09-20 03:53] LABS: ALT (SGPT) 36 U/L (8-55); AST (SGOT) 17 U/L (5-34); Albumin 2.6 g/dL (3.4-4.8); Alkaline Phosphatase 57 U/L (40-110); Anion Gap 12 mmol/L (10-20); BUN (Urea Nitrogen) 20 mg/dL (8.4-25.7); Bilirubin, Total 0.6 mg/dL (0.2-1.2); Calc. Creatinine Clearance 148 mL/min (70-130); Calcium 8.1 mg/dL (7.8-10.44); Carbon Dioxide 30 mmol/L (23-31); Chloride 100 mmol/L (98-107); Globulin 3.4 g/dL (2.4-3.5); Glucose 161 mg/dL (80-115); Potassium 3.1 mmol/L (3.5-5.1); Sodium 139 mmol/L (136-145)
[2021-09-20] MEDS: HumaLOG 300 UNITS/3 ML VIAL SC SCH ×3 (06:16→22:05)
[2021-09-20] MEDS ORDERED: Potassium Chloride 40 MEQ in Sodium Chloride 0.9% 250 ML 250 ML IVPB SCH (06:45)
[2021-09-20] MEDS: Fluticasone Propionate Nasal Spray 16 gm Bottle NASAL SCH (07:29)
[2021-09-20] MEDS: Lidocaine 5% Patch TD SCH (07:29)
[2021-09-20] MEDS: Sodium Chloride 0.65% Nasal 44 ML BOT EA NARE SCH (07:30)
[2021-09-20] MEDS: Mometasone 100 MCG/Formoterol 5 MCG 120 PUFF INHALER INH SCH ×2 (07:33→18:07)
[2021-09-20] MEDS: Sodium Chloride 0.9% 1,000 ML IV SCH ×2 (07:34→18:13)
[2021-09-20] MEDS: busPIRone HCl 10 MG TAB PO SCH ×2 (07:59→20:49)
[2021-09-20] MEDS: methylPREDNISolone Sod Succ 40 MG VIAL IVP SCH (08:00)
[2021-09-20] MEDS: Polyethylene Glycol 3350 17 GM Packet PO SCH (08:00)
[2021-09-20] MEDS: Pantoprazole 40 MG VIAL IVP SCH ×2 (08:00→20:49)
[2021-09-20] MEDS: Enoxaparin Sodium 80 MG/0.8 ML SYRINGE SC SCH ×2 (08:00→20:48)
[2021-09-20] MEDS: Lisinopril 10 MG TAB PO SCH (08:01)
[2021-09-20] MEDS: Lantus 1000 UNITS/10 ML VIAL SC SCH ×2 (08:01→20:48)
[2021-09-20] MEDS: HumaLOG 300 UNITS/3 ML VIAL SC PRN ×2 (11:24→18:51)
[2021-09-20] MEDS: diphenhydrAMINE 25 MG CAP PO SCH (20:48)
[2021-09-20] MEDS: Atorvastatin Calcium 20 MG TAB PO SCH (20:49)
[2021-09-21] MEDS: Ampicillin/Sulbactam 3 GM in Sodium Chloride 0.9% 100 ML IVPB SCH ×4 (00:16→19:39)
[2021-09-21] MEDS: Sodium Chloride 0.9% 1,000 ML IV SCH ×2 (00:16→08:58)
[2021-09-21 05:07] LABS: Band 18 % (5-11); Hemoglobin 9.3 g/dL (14.0-18.0); Lymphocytes 30 % (21-51); MDiff Complete? YES; Mean Corpuscular HGB CONC 33.1 g/dL (32.0-36.0); Mean Corpuscular Hemoglobin 32.7 pg (27.0-31.0); Mean Corpuscular Volume 98.8 fL (78.0-98.0); Mean Platelet Volume 7.5 fL (7.4-10.4); Metamyelocyte 3 % (0-0); Monocytes 1 % (0-10); Myelocyte 2 % (0-0); Neutrophil 46 % (42-75); Platelet Count 187 thou/uL (130-400); Platelet Morphology Comment Appears Adequate; Red Blood Cell (RBC) Count 2.83 mill/uL (4.70-6.10); White Blood Cell (WBC) Count 3.7 thou/uL (4.8-10.8)
[2021-09-21 05:21] LABS: ALT (SGPT) 29 U/L (8-55); AST (SGOT) 16 U/L (5-34); Albumin 2.3 g/dL (3.4-4.8); Alkaline Phosphatase 47 U/L (40-110); Anion Gap 11 mmol/L (10-20); BUN (Urea Nitrogen) 18 mg/dL (8.4-25.7); Bilirubin, Total 0.4 mg/dL (0.2-1.2); Calc. Creatinine Clearance 142 mL/min (70-130); Carbon Dioxide 29 mmol/L (23-31); Chloride 102 mmol/L (98-107); Globulin 3.2 g/dL (2.4-3.5); Glucose 72 mg/dL (80-115); Potassium 3.3 mmol/L (3.5-5.1); Protein, Total 5.5 g/dL (5.8-8.1); Sodium 139 mmol/L (136-145)
[2021-09-21] MEDS: Dextrose 50% Abboject 50 ML SYRINGE SLOW IVP PRN ×2 (06:30→09:29)
[2021-09-21] MEDS: Mometasone 100 MCG/Formoterol 5 MCG 120 PUFF INHALER INH SCH ×2 (07:41→19:29)
[2021-09-21] MEDS ORDERED: Potassium Chloride 40 MEQ in Sodium Chloride 0.9% 250 ML 250 ML IVPB SCH (07:45)
[2021-09-21] MEDS: HumaLOG 300 UNITS/3 ML VIAL SC SCH (08:41)
[2021-09-21] MEDS: Enoxaparin Sodium 80 MG/0.8 ML SYRINGE SC SCH ×2 (08:50→20:57)
[2021-09-21] MEDS: Polyethylene Glycol 3350 17 GM Packet PO SCH (08:50)
[2021-09-21] MEDS: Pantoprazole 40 MG VIAL IVP SCH (08:50)
[2021-09-21] MEDS: methylPREDNISolone Sod Succ 40 MG VIAL IVP SCH (08:50)
[2021-09-21] MEDS: busPIRone HCl 10 MG TAB PO SCH ×2 (08:50→20:57)
[2021-09-21] MEDS: Lantus 1000 UNITS/10 ML VIAL SC SCH (08:51)
[2021-09-21] MEDS: Dextrose 10% in Water 500 ML IV SCH ×3 (09:29→21:18)
[2021-09-21] MEDS ORDERED: Dextrose 10% in Water 1,000 ML IV SCH (09:30)
[2021-09-21] MEDS ORDERED: Lantus 1000 UNITS/10 ML VIAL SC SCH ×3 (12:30→21:00)
[2021-09-21] MEDS ORDERED: HumaLOG 300 UNITS/3 ML VIAL SC SCH (14:00)
[2021-09-21] MEDS: Midazolam In 0.9 % NaCl/PF 100 ML IVPB SCH (15:46)
[2021-09-21 17:28] LABS: Glucose 149 mg/dL (80-115)
[2021-09-21] MEDS: Lansoprazole 3 MG/ML ORAL SUSPENSION PER TUBE SCH (20:56)
[2021-09-21] MEDS: Atorvastatin Calcium 20 MG TAB PO SCH (20:57)
[2021-09-21] MEDS: diphenhydrAMINE 25 MG CAP PO SCH (20:57)
[2021-09-21] MEDS ORDERED: Dextrose 50% Abboject 50 ML SYRINGE ONE (21:12)
[2021-09-21] MEDS ORDERED: Dextrose 50% Abboject 50 ML SYRINGE SLOW IVP SCH (21:15)
[2021-09-21] MEDS ORDERED: Norepinephrine 8 MG/0.9% NS 250 ML IVPB SCH (22:30)
[2021-09-22] MEDS: Ampicillin/Sulbactam 3 GM in Sodium Chloride 0.9% 100 ML IVPB SCH ×4 (00:32→18:26)
[2021-09-22] MEDS: Dextrose 10% in Water 500 ML IV SCH ×4 (03:30→18:26)
[2021-09-22 05:49] LABS: Band 23 % (5-11); Hemoglobin 9.2 g/dL (14.0-18.0); Hypochromia SLIGHT = 6-15 cells (100X) (0-5/hpf); Lymphocytes 26 % (21-51); MDiff Complete? YES; Mean Corpuscular HGB CONC 32.2 g/dL (32.0-36.0); Mean Corpuscular Hemoglobin 31.7 pg (27.0-31.0); Mean Corpuscular Volume 98.4 fL (78.0-98.0); Mean Platelet Volume 7.5 fL (7.4-10.4); Metamyelocyte 1 % (0-0); Monocytes 5 % (0-10); Neutrophil 44 % (42-75); Nucleated RBC 1 % (0); Platelet Count 187 thou/uL (130-400); Platelet Morphology Comment Appears Adequate; RBC Distribution Width 13.2 % (11.5-14.5); Reactive Lymphocytes 1 % (0-10); Red Blood Cell (RBC) Count 2.91 mill/uL (4.70-6.10)
[2021-09-22 06:01] LABS: ALT (SGPT) 36 U/L (8-55); AST (SGOT) 21 U/L (5-34); Albumin 2.3 g/dL (3.4-4.8); Alkaline Phosphatase 46 U/L (40-110); Anion Gap 14 mmol/L (10-20); BUN (Urea Nitrogen) 15 mg/dL (8.4-25.7); Bilirubin, Total 0.4 mg/dL (0.2-1.2); Calc. Creatinine Clearance 133 mL/min (70-130); Calcium 8.1 mg/dL (7.8-10.44); Carbon Dioxide 27 mmol/L (23-31); Chloride 100 mmol/L (98-107); Globulin 3.2 g/dL (2.4-3.5); Glucose 228 mg/dL (80-115); Potassium 3.5 mmol/L (3.5-5.1); Protein, Total 5.5 g/dL (5.8-8.1); Sodium 137 mmol/L (136-145)
[2021-09-22] MEDS: Mometasone 100 MCG/Formoterol 5 MCG 120 PUFF INHALER INH SCH ×2 (07:19→19:45)
[2021-09-22] MEDS ORDERED: Lantus 1000 UNITS/10 ML VIAL SC SCH (09:00)
[2021-09-22] MEDS: Lansoprazole 3 MG/ML ORAL SUSPENSION PER TUBE SCH (09:17)
[2021-09-22] MEDS: Enoxaparin Sodium 80 MG/0.8 ML SYRINGE SC SCH ×2 (09:17→20:41)
[2021-09-22] MEDS: busPIRone HCl 10 MG TAB PO SCH ×2 (09:17→20:41)
[2021-09-22] MEDS: Polyethylene Glycol 3350 17 GM Packet PO SCH (09:18)
[2021-09-22] MEDS ORDERED: Sterile Water 10 ML ONE (10:24)
[2021-09-22] MEDS: Hydrocortisone Sod Succ/PF 100 mg/2 ml Vial IVP SCH ×2 (12:07→18:25)
[2021-09-22] MEDS ORDERED: Potassium Bicarbonate/Cit Ac 20 MEQ TAB PER TUBE SCH (13:00)
[2021-09-22 13:12] LABS: Anion Gap 14 mmol/L (10-20); BUN (Urea Nitrogen) 16 mg/dL (8.4-25.7); Calc. Creatinine Clearance 143 mL/min (70-130); Calcium 8.5 mg/dL (7.8-10.44); Carbon Dioxide 26 mmol/L (23-31); Chloride 100 mmol/L (98-107); Glucose 137 mg/dL (80-115); Magnesium 1.7 mg/dL (1.6-2.6); Potassium 3.7 mmol/L (3.5-5.1); Sodium 136 mmol/L (136-145)
[2021-09-22] MEDS ORDERED: Magnesium 2 GM/50 ML 2 GM in Premix Bag 1 BAG IVPB SCH (13:15)
[2021-09-22] MEDS: diphenhydrAMINE 25 MG CAP PO SCH (20:40)
[2021-09-22] MEDS: Atorvastatin Calcium 20 MG TAB PO SCH (20:40)
[2021-09-23] MEDS: Hydrocortisone Sod Succ/PF 100 mg/2 ml Vial IVP SCH ×5 (00:21→23:36)
[2021-09-23] MEDS: Ampicillin/Sulbactam 3 GM in Sodium Chloride 0.9% 100 ML IVPB SCH ×5 (00:21→23:32)
[2021-09-23] MEDS: Dextrose 10% in Water 500 ML IV SCH ×4 (00:55→19:15)
[2021-09-23] MEDS: Lansoprazole 3 MG/ML ORAL SUSPENSION PER TUBE SCH (02:40)
[2021-09-23 05:38] LABS: Band 14 % (5-11); Hemoglobin 9.9 g/dL (14.0-18.0); Lymphocytes 24 % (21-51); MDiff Complete? YES; Mean Corpuscular HGB CONC 31.2 g/dL (32.0-36.0); Mean Corpuscular Hemoglobin 30.7 pg (27.0-31.0); Mean Corpuscular Volume 98.3 fL (78.0-98.0); Mean Platelet Volume 7.4 fL (7.4-10.4); Monocytes 4 % (0-10); Myelocyte 2 % (0-0); Neutrophil 55 % (42-75); Platelet Count 219 thou/uL (130-400); RBC Distribution Width 13.4 % (11.5-14.5); Reactive Lymphocytes 1 % (0-10); Red Blood Cell (RBC) Count 3.22 mill/uL (4.70-6.10); White Blood Cell (WBC) Count 5.2 thou/uL (4.8-10.8)
[2021-09-23 05:39] LABS: ALT (SGPT) 38 U/L (8-55); AST (SGOT) 18 U/L (5-34); Albumin 2.7 g/dL (3.4-4.8); Alkaline Phosphatase 50 U/L (40-110); Anion Gap 12 mmol/L (10-20); BUN (Urea Nitrogen) 13 mg/dL (8.4-25.7); Bilirubin, Total 0.7 mg/dL (0.2-1.2); Calc. Creatinine Clearance 131 mL/min (70-130); Calcium 8.5 mg/dL (7.8-10.44); Carbon Dioxide 32 mmol/L (23-31); Chloride 99 mmol/L (98-107); Globulin 3.7 g/dL (2.4-3.5); Glucose 84 mg/dL (80-115); Potassium 3.4 mmol/L (3.5-5.1); Protein, Total 6.4 g/dL (5.8-8.1); Sodium 140 mmol/L (136-145)
[2021-09-23] MEDS ORDERED: Potassium Chloride 40 MEQ in Premix Bag 1 BAG IVPB SCH (07:00)
[2021-09-23 07:24] LABS: Magnesium 2.2 mg/dL (1.6-2.6)
[2021-09-23] MEDS: Mometasone 100 MCG/Formoterol 5 MCG 120 PUFF INHALER INH SCH (07:50)
[2021-09-23] MEDS ORDERED: Potassium Bicarbonate/Cit Ac 20 MEQ TAB PO SCH (08:00)
[2021-09-23] MEDS: busPIRone HCl 10 MG TAB PO SCH ×2 (09:03→20:31)
[2021-09-23] MEDS: Enoxaparin Sodium 80 MG/0.8 ML SYRINGE SC SCH ×2 (09:03→20:32)
[2021-09-23] MEDS: Polyethylene Glycol 3350 17 GM Packet PO SCH (09:04)
[2021-09-23] MEDS: Melatonin 3 MG TAB PO SCH (20:31)
[2021-09-23] MEDS: diphenhydrAMINE 25 MG CAP PO SCH (20:32)
[2021-09-23] MEDS: Atorvastatin Calcium 20 MG TAB PO SCH (20:32)
[2021-09-24] MEDS: Dextrose 10% in Water 500 ML IV SCH ×3 (02:22→13:31)
[2021-09-24] MEDS: Mometasone 100 MCG/Formoterol 5 MCG 120 PUFF INHALER INH SCH ×3 (02:22→17:55)
[2021-09-24] MEDS: Hydrocortisone Sod Succ/PF 100 mg/2 ml Vial IVP SCH ×4 (06:04→23:37)
[2021-09-24] MEDS: Ampicillin/Sulbactam 3 GM in Sodium Chloride 0.9% 100 ML IVPB SCH ×4 (06:04→23:36)
[2021-09-24 06:52] LABS: Band 13 % (5-11); Eosinophils 1 % (0-10); Lymphocytes 35 % (21-51); MDiff Complete? YES; Mean Corpuscular HGB CONC 33.5 g/dL (32.0-36.0); Mean Corpuscular Hemoglobin 32.6 pg (27.0-31.0); Mean Corpuscular Volume 97.5 fL (78.0-98.0); Mean Platelet Volume 7.2 fL (7.4-10.4); Monocytes 3 % (0-10); Neutrophil 48 % (42-75); Platelet Count 222 thou/uL (130-400); RBC Distribution Width 13.8 % (11.5-14.5); Red Blood Cell (RBC) Count 3.07 mill/uL (4.70-6.10); White Blood Cell (WBC) Count 5.2 thou/uL (4.8-10.8)
[2021-09-24 07:02] LABS: ALT (SGPT) 35 U/L (8-55); AST (SGOT) 31 U/L (5-34); Albumin 2.6 g/dL (3.4-4.8); Alkaline Phosphatase 51 U/L (40-110); Anion Gap 14 mmol/L (10-20); BUN (Urea Nitrogen) 19 mg/dL (8.4-25.7); Bilirubin, Total 0.6 mg/dL (0.2-1.2); Calc. Creatinine Clearance 120 mL/min (70-130); Calcium 7.8 mg/dL (7.8-10.44); Carbon Dioxide 29 mmol/L (23-31); Chloride 103 mmol/L (98-107); Globulin 3.5 g/dL (2.4-3.5); Glucose 88 mg/dL (80-115); Potassium 3.9 mmol/L (3.5-5.1); Protein, Total 6.1 g/dL (5.8-8.1); Sodium 142 mmol/L (136-145)
[2021-09-24] MEDS ORDERED: hydrOXYzine 25 MG TAB PO PRN (07:07)
[2021-09-24] MEDS: busPIRone HCl 10 MG TAB PO SCH ×2 (09:03→21:16)
[2021-09-24] MEDS: Enoxaparin Sodium 80 MG/0.8 ML SYRINGE SC SCH ×2 (09:03→21:17)
[2021-09-24] MEDS: Polyethylene Glycol 3350 17 GM Packet PO SCH (09:09)
[2021-09-24] MEDS: HumaLOG 300 UNITS/3 ML VIAL SC PRN ×2 (12:19→21:19)
[2021-09-24] MEDS: Dextrose 5% in Water 1,000 ML IV SCH ×2 (15:43→23:32)
[2021-09-24] MEDS: diphenhydrAMINE 25 MG CAP PO SCH (21:16)
[2021-09-24] MEDS: Atorvastatin Calcium 20 MG TAB PO SCH (21:16)
[2021-09-24] MEDS: hydrOXYzine 25 MG TAB PO SCH (21:17)
[2021-09-24] MEDS: Melatonin 3 MG TAB PO SCH (21:17)
[2021-09-25] MEDS: Ampicillin/Sulbactam 3 GM in Sodium Chloride 0.9% 100 ML IVPB SCH ×3 (06:02→18:32)
[2021-09-25] MEDS: Hydrocortisone Sod Succ/PF 100 mg/2 ml Vial IVP SCH ×3 (06:02→18:32)
[2021-09-25] MEDS: HumaLOG 300 UNITS/3 ML VIAL SC PRN ×3 (06:05→18:31)
[2021-09-25 06:38] LABS: Hemoglobin 9.7 g/dL (14.0-18.0); Mean Corpuscular HGB CONC 34.8 g/dL (32.0-36.0); Mean Corpuscular Hemoglobin 34.2 pg (27.0-31.0); Mean Corpuscular Volume 98.4 fL (78.0-98.0); Platelet Count 237 thou/uL (130-400); RBC Distribution Width 13.8 % (11.5-14.5); Red Blood Cell (RBC) Count 2.84 mill/uL (4.70-6.10); White Blood Cell (WBC) Count 5.2 thou/uL (4.8-10.8)
[2021-09-25 06:48] LABS: Band 17 % (5-11); Lymphocytes 23 % (21-51); MDiff Complete? YES; Monocytes 6 % (0-10); Myelocyte 5 % (0-0); Neutrophil 49 % (42-75)
[2021-09-25 07:02] LABS: ALT (SGPT) 29 U/L (8-55); AST (SGOT) 13 U/L (5-34); Albumin 2.7 g/dL (3.4-4.8); Alkaline Phosphatase 49 U/L (40-110); Anion Gap 11 mmol/L (10-20); BUN (Urea Nitrogen) 18 mg/dL (8.4-25.7); Bilirubin, Total 0.7 mg/dL (0.2-1.2); Calc. Creatinine Clearance 124 mL/min (70-130); Carbon Dioxide 30 mmol/L (23-31); Chloride 104 mmol/L (98-107); Globulin 3.3 g/dL (2.4-3.5); Glucose 154 mg/dL (80-115); Sodium 142 mmol/L (136-145)
[2021-09-25] MEDS: Mometasone 100 MCG/Formoterol 5 MCG 120 PUFF INHALER INH SCH ×2 (07:11→21:53)
[2021-09-25] MEDS: busPIRone HCl 10 MG TAB PO SCH ×2 (09:18→22:26)
[2021-09-25] MEDS: Enoxaparin Sodium 80 MG/0.8 ML SYRINGE SC SCH ×2 (09:18→22:25)
[2021-09-25] MEDS: Dextrose 5% in Water 1,000 ML IV SCH ×2 (09:27→18:41)
[2021-09-25] MEDS: Polyethylene Glycol 3350 17 GM Packet PO SCH (09:27)
[2021-09-25] MEDS ORDERED: Lisinopril 20 MG TAB PO SCH (09:30)
[2021-09-25] MEDS ORDERED: metFORMIN XR 500 MG TAB PO SCH (09:30)
[2021-09-25] MEDS: Atorvastatin Calcium 20 MG TAB PO SCH (22:26)
[2021-09-25] MEDS: diphenhydrAMINE 25 MG CAP PO SCH (22:26)
[2021-09-25] MEDS: Melatonin 3 MG TAB PO SCH (22:27)
[2021-09-25] MEDS: hydrOXYzine 25 MG TAB PO SCH (22:27)
[2021-09-25] MEDS: metFORMIN XR 500 MG TAB PO SCH (22:28)
[2021-09-26] MEDS: Hydrocortisone Sod Succ/PF 100 mg/2 ml Vial IVP SCH ×4 (00:13→21:58)
[2021-09-26] MEDS: Ampicillin/Sulbactam 3 GM in Sodium Chloride 0.9% 100 ML IVPB SCH ×5 (00:13→23:28)
[2021-09-26] MEDS: Dextrose 5% in Water 1,000 ML IV SCH ×2 (00:20→13:07)
[2021-09-26] MEDS: HumaLOG 300 UNITS/3 ML VIAL SC PRN (06:21)
[2021-09-26 07:01] LABS: Mean Corpuscular HGB CONC 32.5 g/dL (32.0-36.0); Mean Corpuscular Hemoglobin 32.7 pg (27.0-31.0); Platelet Count 250 thou/uL (130-400); RBC Distribution Width 14.3 % (11.5-14.5); Red Blood Cell (RBC) Count 3.05 mill/uL (4.70-6.10); White Blood Cell (WBC) Count 6.8 thou/uL (4.8-10.8)
[2021-09-26 07:19] LABS: ALT (SGPT) 27 U/L (8-55); AST (SGOT) 15 U/L (5-34); Albumin 2.7 g/dL (3.4-4.8); Alkaline Phosphatase 48 U/L (40-110); Anion Gap 12 mmol/L (10-20); BUN (Urea Nitrogen) 16 mg/dL (8.4-25.7); Bilirubin, Total 0.7 mg/dL (0.2-1.2); Calc. Creatinine Clearance 123 mL/min (70-130); Calcium 7.8 mg/dL (7.8-10.44); Carbon Dioxide 28 mmol/L (23-31); Chloride 104 mmol/L (98-107); Globulin 3.1 g/dL (2.4-3.5); Glucose 183 mg/dL (80-115); Protein, Total 5.8 g/dL (5.8-8.1); Sodium 141 mmol/L (136-145)
[2021-09-26 07:28] LABS: Potassium 2.8 mmol/L (3.5-5.1)
[2021-09-26] MEDS: Mometasone 100 MCG/Formoterol 5 MCG 120 PUFF INHALER INH SCH ×2 (07:34→18:36)
[2021-09-26] MEDS ORDERED: Potassium Chloride 20 MEQ TAB PO SCH ×2 (08:00→21:00)
[2021-09-26] MEDS: metFORMIN XR 500 MG TAB PO SCH ×2 (08:57→21:59)
[2021-09-26] MEDS: Enoxaparin Sodium 80 MG/0.8 ML SYRINGE SC SCH ×2 (08:57→22:15)
[2021-09-26] MEDS: Lisinopril 20 MG TAB PO SCH (08:57)
[2021-09-26] MEDS: busPIRone HCl 10 MG TAB PO SCH ×2 (08:57→21:58)
[2021-09-26] MEDS: Polyethylene Glycol 3350 17 GM Packet PO SCH (08:58)
[2021-09-26] MEDS: glipiZIDE 10 MG TAB PO SCH ×2 (10:48→21:59)
[2021-09-26] MEDS: Empagliflozin 25 MG TAB PO SCH (10:48)
[2021-09-26 11:34] LABS: Band 6 % (5-11); Lymphocytes 26 % (21-51); MDiff Complete? YES; Macrocytosis SLIGHT = 6-15 cells (100X) (0-5/hpf); Monocytes 5 % (0-10); Myelocyte 1 % (0-0); Neutrophil 62 % (42-75); Nucleated RBC 1 % (0); Platelet Morphology Comment Appears Adequate; Polychromasia MODERATE = 3-4 cells (100X) (0-2/hpf)
[2021-09-26 15:28] LABS: Anion Gap 12 mmol/L (10-20); BUN (Urea Nitrogen) 18 mg/dL (8.4-25.7); Calc. Creatinine Clearance 121 mL/min (70-130); Calcium 8.1 mg/dL (7.8-10.44); Carbon Dioxide 29 mmol/L (23-31); Chloride 104 mmol/L (98-107); Glucose 69 mg/dL (80-115); Sodium 142 mmol/L (136-145)
[2021-09-26 15:41] LABS: Potassium 2.6 mmol/L (3.5-5.1)
[2021-09-26] MEDS: Potassium Chloride 20 MEQ in Premix Bag 1 BAG IVPB SCH ×3 (17:12→23:28)
[2021-09-26] MEDS: Morphine 4 MG/ML VIAL SLOW IVP PRN ×2 (18:24→23:29)
[2021-09-26 19:18] LABS: Actual Bicarbonate (HCO3a) 28.3 mEq/L (22-28); Base Excess (BEa) 5.8 mEq/L (-2.0 to +3.0); CO2 Tension 33.6 mmHg (35.0-45.0); Calcium, Ionized (arterial) 1.05 mmol/L (1.12-1.30); Carboxyhemoglobin (COHb) 0.6 gm% (0.0-3.0); Hemoglobin (Hb) 10.4 g/dL (14.0-18.0); Potassium - ABG Lab 2.76 mmol/L (3.70-5.30); pH, Arterial 7.54 (7.35-7.45)
[2021-09-26 19:46] LABS: O2 Tension (PaO2), arterial 59.2 mmHg (> 80.0); Puncture Site RRA
[2021-09-26 20:03] LABS: #Eosinphils 0.1 thou/uL (0.0-0.7); #Lymphocytes 1.9 thou/uL (1.20-3.40); #Monocytes 0.7 thou/uL (0.11-0.59); #Neutrophils 7.9 thou/uL (1.40-6.50); %Basophils 0.3 % (0.0-1.0); %Lymphocytes 17.9 % (21.0-51.0); %Monocytes 6.1 % (0.0-10.0); %Neutrophils 74.7 % (42.0-75.0); Hemoglobin 10.1 g/dL (14.0-18.0); Mean Corpuscular HGB CONC 34.2 g/dL (32.0-36.0); Mean Corpuscular Hemoglobin 33.4 pg (27.0-31.0); Mean Corpuscular Volume 97.5 fL (78.0-98.0); Mean Platelet Volume 6.6 fL (7.4-10.4); Platelet Count 262 thou/uL (130-400); RBC Distribution Width 14.3 % (11.5-14.5); Red Blood Cell (RBC) Count 3.02 mill/uL (4.70-6.10); White Blood Cell (WBC) Count 10.6 thou/uL (4.8-10.8)
[2021-09-26] MEDS: diphenhydrAMINE 25 MG CAP PO SCH (20:10)
[2021-09-26] MEDS: hydrOXYzine 25 MG TAB PO SCH (20:11)
[2021-09-26 20:15] LABS: Anion Gap 14 mmol/L (10-20); BUN (Urea Nitrogen) 17 mg/dL (8.4-25.7); Calc. Creatinine Clearance 127 mL/min (70-130); Calcium 7.6 mg/dL (7.8-10.44); Carbon Dioxide 26 mmol/L (23-31); Chloride 102 mmol/L (98-107); Glucose 82 mg/dL (80-115); Sodium 139 mmol/L (136-145)
[2021-09-26 20:19] LABS: Potassium 2.8 mmol/L (3.5-5.1)
[2021-09-26] MEDS ORDERED: Furosemide 20 MG/2 ML VIAL SLOW IVP SCH (20:45)
[2021-09-26 21:47] LABS: Magnesium 1.8 mg/dL (1.6-2.6)
[2021-09-26 21:53] LABS: Troponin I Less than 0.010 ng/mL (< 0.028)
[2021-09-26] MEDS: Atorvastatin Calcium 20 MG TAB PO SCH (21:58)
[2021-09-26] MEDS: Melatonin 3 MG TAB PO SCH (21:59)
[2021-09-26] MEDS ORDERED: Magnesium Oxide 400 MG TAB PO SCH (23:15)
[2021-09-26 23:46] LABS: Anion Gap 13 mmol/L (10-20); BUN (Urea Nitrogen) 16 mg/dL (8.4-25.7); Calc. Creatinine Clearance 112 mL/min (70-130); Calcium 7.8 mg/dL (7.8-10.44); Carbon Dioxide 28 mmol/L (23-31); Chloride 102 mmol/L (98-107); Glucose 123 mg/dL (80-115); Sodium 140 mmol/L (136-145)
[2021-09-27] MEDS: Melatonin 3 MG TAB PO SCH (00:21)
[2021-09-27] MEDS: Dextrose 5% in Water 1,000 ML IV SCH ×3 (04:41→22:51)
[2021-09-27] MEDS: Ampicillin/Sulbactam 3 GM in Sodium Chloride 0.9% 100 ML IVPB SCH ×2 (05:15→11:59)
[2021-09-27] MEDS: Mometasone 100 MCG/Formoterol 5 MCG 120 PUFF INHALER INH SCH ×2 (05:16→18:03)
[2021-09-27 06:47] LABS: Hemoglobin 9.8 g/dL (14.0-18.0); Mean Corpuscular HGB CONC 33.4 g/dL (32.0-36.0); Mean Corpuscular Hemoglobin 32.8 pg (27.0-31.0); Mean Corpuscular Volume 98.1 fL (78.0-98.0); Mean Platelet Volume 6.9 fL (7.4-10.4); Platelet Count 257 thou/uL (130-400); RBC Distribution Width 14.6 % (11.5-14.5); White Blood Cell (WBC) Count 6.9 thou/uL (4.8-10.8)
[2021-09-27 06:55] LABS: Band 7 % (5-11); Lymphocytes 14 % (21-51); MDiff Complete? YES; Monocytes 10 % (0-10); Myelocyte 1 % (0-0); Neutrophil 68 % (42-75); Nucleated RBC 2 % (0)
[2021-09-27 07:03] LABS: ALT (SGPT) 24 U/L (8-55); AST (SGOT) 13 U/L (5-34); Albumin 2.9 g/dL (3.4-4.8); Alkaline Phosphatase 53 U/L (40-110); Anion Gap 11 mmol/L (10-20); BUN (Urea Nitrogen) 18 mg/dL (8.4-25.7); Bilirubin, Total 0.7 mg/dL (0.2-1.2); Calc. Creatinine Clearance 115 mL/min (70-130); Calcium 7.7 mg/dL (7.8-10.44); Carbon Dioxide 29 mmol/L (23-31); Chloride 103 mmol/L (98-107); Glucose 159 mg/dL (80-115); Potassium 3.4 mmol/L (3.5-5.1); Protein, Total 5.9 g/dL (5.8-8.1); Sodium 140 mmol/L (136-145)
[2021-09-27] MEDS: Hydrocortisone Sod Succ/PF 100 mg/2 ml Vial IVP SCH ×2 (08:09→19:51)
[2021-09-27] MEDS: Lisinopril 20 MG TAB PO SCH (08:10)
[2021-09-27] MEDS: busPIRone HCl 10 MG TAB PO SCH ×2 (08:11→19:51)
[2021-09-27] MEDS: glipiZIDE 10 MG TAB PO SCH ×2 (08:11→19:51)
[2021-09-27] MEDS: Enoxaparin Sodium 80 MG/0.8 ML SYRINGE SC SCH ×2 (08:12→19:51)
[2021-09-27] MEDS: metFORMIN XR 500 MG TAB PO SCH ×2 (09:49→19:52)
[2021-09-27] MEDS: Potassium Chloride 20 MEQ TAB PO SCH (09:49)
[2021-09-27] MEDS: Empagliflozin 25 MG TAB PO SCH (09:49)
[2021-09-27] MEDS: HumaLOG 300 UNITS/3 ML VIAL SC PRN (11:59)
[2021-09-27] MEDS: Amoxicillin/Potassium Clav 875 MG TAB PO SCH (19:50)
[2021-09-27] MEDS: diphenhydrAMINE 25 MG CAP PO SCH (19:51)
[2021-09-27] MEDS: Atorvastatin Calcium 20 MG TAB PO SCH (19:51)
[2021-09-27] MEDS: hydrOXYzine 25 MG TAB PO SCH (19:51)
[2021-09-27] MEDS: Morphine 4 MG/ML VIAL SLOW IVP PRN (19:52)
[2021-09-28] MEDS: Melatonin 3 MG TAB PO SCH ×2 (02:32→23:54)
[2021-09-28] MEDS: Mometasone 100 MCG/Formoterol 5 MCG 120 PUFF INHALER INH SCH (07:25)
[2021-09-28 07:29] LABS: Hemoglobin 10.8 g/dL (14.0-18.0); Mean Corpuscular HGB CONC 33.5 g/dL (32.0-36.0); Mean Corpuscular Hemoglobin 32.8 pg (27.0-31.0); Mean Corpuscular Volume 98.1 fL (78.0-98.0); Platelet Count 281 thou/uL (130-400); RBC Distribution Width 15.2 % (11.5-14.5); Red Blood Cell (RBC) Count 3.29 mill/uL (4.70-6.10); White Blood Cell (WBC) Count 8.3 thou/uL (4.8-10.8)
[2021-09-28 07:36] LABS: ALT (SGPT) 25 U/L (8-55); AST (SGOT) 17 U/L (5-34); Albumin 2.9 g/dL (3.4-4.8); Alkaline Phosphatase 54 U/L (40-110); Anion Gap 14 mmol/L (10-20); BUN (Urea Nitrogen) 13 mg/dL (8.4-25.7); Bilirubin, Total 0.6 mg/dL (0.2-1.2); Calc. Creatinine Clearance 124 mL/min (70-130); Carbon Dioxide 28 mmol/L (23-31); Chloride 103 mmol/L (98-107); Globulin 3.1 g/dL (2.4-3.5); Glucose 76 mg/dL (80-115); Potassium 3.5 mmol/L (3.5-5.1); Sodium 141 mmol/L (136-145)
[2021-09-28] MEDS: Dextrose 5% in Water 1,000 ML IV SCH ×2 (08:00→17:30)
[2021-09-28] MEDS: Amoxicillin/Potassium Clav 875 MG TAB PO SCH ×2 (08:22→20:45)
[2021-09-28] MEDS: Lisinopril 20 MG TAB PO SCH (08:22)
[2021-09-28] MEDS: Potassium Chloride 20 MEQ TAB PO SCH (08:22)
[2021-09-28] MEDS: Hydrocortisone Sod Succ/PF 100 mg/2 ml Vial IVP SCH (08:22)
[2021-09-28] MEDS: busPIRone HCl 10 MG TAB PO SCH ×2 (08:23→20:45)
[2021-09-28] MEDS: glipiZIDE 10 MG TAB PO SCH ×2 (08:23→17:23)
[2021-09-28] MEDS: Empagliflozin 25 MG TAB PO SCH (08:24)
[2021-09-28] MEDS: metFORMIN XR 500 MG TAB PO SCH ×2 (08:24→17:23)
[2021-09-28] MEDS: Enoxaparin Sodium 80 MG/0.8 ML SYRINGE SC SCH ×2 (08:25→20:45)
[2021-09-28 09:12] LABS: Band 6 % (5-11); Lymphocytes 26 % (21-51); MDiff Complete? YES; Metamyelocyte 2 % (0-0); Monocytes 2 % (0-10); Myelocyte 3 % (0-0); Neutrophil 60 % (42-75); Polychromasia MODERATE = 3-4 cells (100X) (0-2/hpf); Reactive Lymphocytes 1 % (0-10)
[2021-09-28] MEDS: Oxymetazoline HCl 0.05% (30 ML BOT) NS SCH (10:28)
[2021-09-28] MEDS: Sodium Chloride 0.65% Nasal 44 ML BOT EA NARE SCH ×2 (15:48→20:46)
[2021-09-28] MEDS: Atorvastatin Calcium 20 MG TAB PO SCH (20:45)
[2021-09-28] MEDS: hydrOXYzine 25 MG TAB PO SCH (20:45)
[2021-09-28] MEDS: diphenhydrAMINE 25 MG CAP PO SCH (20:45)
[2021-09-28] MEDS: Morphine 4 MG/ML VIAL SLOW IVP PRN (20:47)
[2021-09-29] MEDS: Mometasone 100 MCG/Formoterol 5 MCG 120 PUFF INHALER INH SCH ×3 (00:01→23:10)
[2021-09-29] MEDS: Dextrose 5% in Water 1,000 ML IV SCH ×3 (04:49→23:52)
[2021-09-29 08:08] LABS: Hemoglobin 11.1 g/dL (14.0-18.0); Mean Corpuscular HGB CONC 32.4 g/dL (32.0-36.0); Mean Corpuscular Hemoglobin 32.1 pg (27.0-31.0); Mean Corpuscular Volume 99.1 fL (78.0-98.0); Mean Platelet Volume 7.3 fL (7.4-10.4); Platelet Count 284 thou/uL (130-400); RBC Distribution Width 15.8 % (11.5-14.5); Red Blood Cell (RBC) Count 3.47 mill/uL (4.70-6.10); White Blood Cell (WBC) Count 11.6 thou/uL (4.8-10.8)
[2021-09-29 08:09] LABS: ALT (SGPT) 19 U/L (8-55); AST (SGOT) 23 U/L (5-34); Alkaline Phosphatase 65 U/L (40-110); Anion Gap 15 mmol/L (10-20); BUN (Urea Nitrogen) 9 mg/dL (8.4-25.7); Bilirubin, Total 0.8 mg/dL (0.2-1.2); Calc. Creatinine Clearance 136 mL/min (70-130); Calcium 7.9 mg/dL (7.8-10.44); Carbon Dioxide 26 mmol/L (23-31); Chloride 99 mmol/L (98-107); Glucose 97 mg/dL (80-115); Potassium 3.3 mmol/L (3.5-5.1); Sodium 137 mmol/L (136-145)
[2021-09-29] MEDS: Potassium Chloride 20 MEQ TAB PO SCH (08:34)
[2021-09-29] MEDS: Amoxicillin/Potassium Clav 875 MG TAB PO SCH ×2 (08:35→20:37)
[2021-09-29] MEDS: Enoxaparin Sodium 80 MG/0.8 ML SYRINGE SC SCH ×2 (08:35→20:48)
[2021-09-29] MEDS: busPIRone HCl 10 MG TAB PO SCH ×2 (08:35→20:37)
[2021-09-29] MEDS: glipiZIDE 10 MG TAB PO SCH ×2 (08:35→16:31)
[2021-09-29] MEDS: Lisinopril 20 MG TAB PO SCH (08:35)
[2021-09-29] MEDS: Empagliflozin 25 MG TAB PO SCH (08:36)
[2021-09-29] MEDS: Oxymetazoline HCl 0.05% (30 ML BOT) NS SCH (08:36)
[2021-09-29] MEDS: metFORMIN XR 500 MG TAB PO SCH ×2 (08:36→16:31)
[2021-09-29] MEDS: Sodium Chloride 0.65% Nasal 44 ML BOT EA NARE SCH ×3 (08:37→20:46)
[2021-09-29 09:26] LABS: Band 9 % (5-11); Eosinophils 1 % (0-10); Lymphocytes 12 % (21-51); Neutrophil 78 % (42-75); Polychromasia SLIGHT = 2-3 cells (100X) (0-2/hpf)
[2021-09-29 09:27] LABS: MDiff Complete? YES; Platelet Morphology Comment Appears Adequate
[2021-09-29] MEDS ORDERED: AFRIN NASAL MIST 15 ML BOT ONE (10:12)
[2021-09-29] MEDS ORDERED: Silver Nitrate Application 1 EACH ONE (10:12)
[2021-09-29] MEDS: Morphine 4 MG/ML VIAL SLOW IVP PRN ×2 (12:35→20:48)
[2021-09-29] MEDS: Melatonin 3 MG TAB PO SCH ×2 (20:37→20:45)
[2021-09-29] MEDS: Atorvastatin Calcium 20 MG TAB PO SCH (20:38)
[2021-09-29] MEDS: diphenhydrAMINE 25 MG CAP PO SCH (20:38)
[2021-09-29] MEDS: hydrOXYzine 25 MG TAB PO SCH (20:52)
[2021-09-30] MEDS: Acetaminophen 325 MG TAB PO PRN (02:17)
[2021-09-30 07:40] LABS: #Eosinphils 0.1 thou/uL (0.0-0.7); #Lymphocytes 1.4 thou/uL (1.20-3.40); #Monocytes 0.3 thou/uL (0.11-0.59); #Neutrophils 8.1 thou/uL (1.40-6.50); %Basophils 0.1 % (0.0-1.0); %Eosinophils 0.5 % (0.0-10.0); %Lymphocytes 14.2 % (21.0-51.0); %Monocytes 3.3 % (0.0-10.0); %Neutrophils 81.9 % (42.0-75.0); Hemoglobin 10.4 g/dL (14.0-18.0); Mean Corpuscular HGB CONC 33.1 g/dL (32.0-36.0); Mean Corpuscular Hemoglobin 32.8 pg (27.0-31.0); Mean Platelet Volume 6.9 fL (7.4-10.4); Platelet Count 277 thou/uL (130-400); RBC Distribution Width 15.6 % (11.5-14.5); Red Blood Cell (RBC) Count 3.18 mill/uL (4.70-6.10); White Blood Cell (WBC) Count 9.9 thou/uL (4.8-10.8)
[2021-09-30 08:02] LABS: ALT (SGPT) 21 U/L (8-55); AST (SGOT) 16 U/L (5-34); Albumin 2.7 g/dL (3.4-4.8); Alkaline Phosphatase 64 U/L (40-110); Anion Gap 16 mmol/L (10-20); BUN (Urea Nitrogen) 12 mg/dL (8.4-25.7); Bilirubin, Total 0.7 mg/dL (0.2-1.2); Calc. Creatinine Clearance 130 mL/min (70-130); Calcium 8.4 mg/dL (7.8-10.44); Carbon Dioxide 26 mmol/L (23-31); Chloride 98 mmol/L (98-107); Globulin 3.4 g/dL (2.4-3.5); Glucose 113 mg/dL (80-115); Protein, Total 6.1 g/dL (5.8-8.1); Sodium 137 mmol/L (136-145)
[2021-09-30] MEDS: Mometasone 100 MCG/Formoterol 5 MCG 120 PUFF INHALER INH SCH ×2 (08:05→18:32)
[2021-09-30 08:11] LABS: Potassium 2.9 mmol/L (3.5-5.1)
[2021-09-30] MEDS ORDERED: Potassium Bicarbonate/Cit Ac 20 MEQ TAB PO SCH (09:00)
[2021-09-30] MEDS: Amoxicillin/Potassium Clav 875 MG TAB PO SCH (09:22)
[2021-09-30] MEDS: Potassium Chloride 20 MEQ TAB PO SCH (09:23)
[2021-09-30] MEDS: glipiZIDE 10 MG TAB PO SCH (09:23)
[2021-09-30] MEDS: busPIRone HCl 10 MG TAB PO SCH ×2 (09:23→23:00)
[2021-09-30] MEDS: metFORMIN XR 500 MG TAB PO SCH (09:24)
[2021-09-30] MEDS: Empagliflozin 25 MG TAB PO SCH (09:24)
[2021-09-30] MEDS: Sodium Chloride 0.65% Nasal 44 ML BOT EA NARE SCH ×3 (09:25→22:58)
[2021-09-30] MEDS: Oxymetazoline HCl 0.05% (30 ML BOT) NS SCH (09:25)
[2021-09-30] MEDS: Lisinopril 20 MG TAB PO SCH (09:43)
[2021-09-30] MEDS: Enoxaparin Sodium 80 MG/0.8 ML SYRINGE SC SCH ×2 (09:43→22:53)
[2021-09-30] MEDS ORDERED: Lorazepam 2 MG/ML VIAL SLOW IVP PRN (12:22)
[2021-09-30] MEDS ORDERED: Fentanyl 100 MCG/2 ML VIAL ONE ×2 (13:00→17:21)
[2021-09-30] MEDS ORDERED: Lidocaine 1% w/Epinephrine 1:100K 20 ML VIAL FS SCH (13:30)
[2021-09-30] MEDS ORDERED: Meropenem 2 GM in Admixture Fee 1 EACH IVPB SCH (14:00)
[2021-09-30] MEDS ORDERED: Meropenem 1 GM in Sodium Chloride 0.9% 100 ML IVPB SCH (14:00)
[2021-09-30] MEDS: Micafungin 100 MG in Sodium Chloride 0.9% 100 ML IVPB SCH (14:12)
[2021-09-30] MEDS ORDERED: Propofol 1,000 MG/100 ML VIAL IV ONE (17:21)
[2021-09-30] MEDS ORDERED: Ventilator Sedation Protocol 1 EACH FS SCH (17:44)
[2021-09-30] MEDS ORDERED: Rocuronium Bromide 10 MG/ML (10ML VIAL) ONE (18:06)
[2021-09-30] MEDS ORDERED: PROPOFOL 200 MG/20 ML VIAL ONE (18:06)
[2021-09-30] MEDS ORDERED: Electrolyte Replacement Protocol 1 EACH FS SCH (18:15)
[2021-09-30] MEDS ORDERED: Fentanyl BOLUS 250 ML IVPB PRN (18:30)
[2021-09-30] MEDS ORDERED: Propofol BOLUS 1,000 MG/100 ML VIAL IV PRN (18:30)
[2021-09-30] MEDS ORDERED: DISCONTINUE PREVIOUS NARCOTIC PAIN MEDICATIONS AND BENZODIAZEPINES FS SCH (18:30)
[2021-09-30] MEDS ORDERED: Propofol 1,000 MG/100 ML VIAL IV PRN (18:30)
[2021-09-30 18:43] LABS: Actual Bicarbonate (HCO3a) 30.5 mEq/L (22-28); Base Excess (BEa) 4.8 mEq/L (-2.0 to +3.0); CO2 Tension 50.7 mmHg (35.0-45.0); Carboxyhemoglobin (COHb) 0.3 gm% (0.0-3.0); Hemoglobin (Hb) 9.9 g/dL (14.0-18.0); O2 Tension (PaO2), arterial 60.9 mmHg (> 80.0); Potassium - ABG Lab 3.53 mmol/L (3.70-5.30)
[2021-09-30 18:52] LABS: Puncture Site RBR
[2021-09-30 18:53] LABS: ALV-art Gradient 374.825 mmHg (0-20)
[2021-09-30] MEDS ORDERED: Norepinephrine 4 MG/4 ML VIAL ONE (19:07)
[2021-09-30] MEDS ORDERED: Norepinephrine 8 MG/0.9% NS 250 ML ONE (19:08)
[2021-09-30] MEDS: Lactated Ringer's 1,000 ML IV SCH (19:50)
[2021-09-30] MEDS ORDERED: Lactated Ringer's 1,000 ML IV SCH (20:00)
[2021-09-30] MEDS ORDERED: Lorazepam 20 MG/10ML 100 MG in Sodium Chloride 0.9% 50 ML IVPB SCH (20:00)
[2021-09-30] MEDS: fentaNYL Citrate-0.9 % NaCl/PF 100 ML IVPB SCH (20:17)
[2021-09-30] MEDS: Potassium Chloride 20 MEQ in Premix Bag 1 BAG IVPB SCH (20:27)
[2021-09-30] MEDS: Norepinephrine 8 MG/0.9% NS 250 ML IVPB SCH (20:51)
[2021-09-30] MEDS ORDERED: Senokot S 8.6-50 MG TAB PO SCH (21:00)
[2021-09-30] MEDS: Meropenem 1 GM in Sodium Chloride 0.9% 100 ML IVPB SCH (22:46)
[2021-09-30] MEDS: Atorvastatin Calcium 20 MG TAB PO SCH (22:54)
[2021-09-30] MEDS: diphenhydrAMINE 25 MG CAP PO SCH (22:59)
[2021-10-01] MEDS ORDERED: diphenhydrAMINE 25 MG CAP PER TUBE SCH (00:09)
[2021-10-01] MEDS ORDERED: Lisinopril 20 MG TAB PER TUBE SCH (00:09)
[2021-10-01] MEDS ORDERED: Acetaminophen 650 MG/20.3 ML UDCUP PER TUBE PRN (00:13)
[2021-10-01] MEDS: Lactated Ringer's 1,000 ML IV SCH (01:01)
[2021-10-01] MEDS: glipiZIDE 10 MG TAB PO SCH (04:29)
[2021-10-01] MEDS: metFORMIN XR 500 MG TAB PO SCH (04:29)
[2021-10-01] MEDS: fentaNYL Citrate-0.9 % NaCl/PF 100 ML IVPB SCH ×2 (04:46→16:13)
[2021-10-01 06:54] LABS: ALT (SGPT) 16 U/L (8-55); AST (SGOT) 12 U/L (5-34); Albumin 2.5 g/dL (3.4-4.8); Alkaline Phosphatase 56 U/L (40-110); Anion Gap 15 mmol/L (10-20); BUN (Urea Nitrogen) 11 mg/dL (8.4-25.7); Band 13 % (5-11); Bilirubin, Total 0.4 mg/dL (0.2-1.2); Calc. Creatinine Clearance 130 mL/min (70-130); Carbon Dioxide 26 mmol/L (23-31); Chloride 102 mmol/L (98-107); Globulin 2.9 g/dL (2.4-3.5); Glucose 78 mg/dL (80-115); Hemoglobin 8.9 g/dL (14.0-18.0); Hypochromia SLIGHT = 6-15 cells (100X) (0-5/hpf); Lymphocytes 18 % (21-51); MDiff Complete? YES; Mean Corpuscular HGB CONC 33.1 g/dL (32.0-36.0); Mean Corpuscular Hemoglobin 33.1 pg (27.0-31.0); Monocytes 2 % (0-10); Neutrophil 67 % (42-75); Platelet Count 326 thou/uL (130-400); Platelet Morphology Comment Appears Adequate; Potassium 3.3 mmol/L (3.5-5.1); Protein, Total 5.4 g/dL (5.8-8.1); RBC Distribution Width 15.6 % (11.5-14.5); Red Blood Cell (RBC) Count 2.69 mill/uL (4.70-6.10); Sodium 140 mmol/L (136-145); White Blood Cell (WBC) Count 9.3 thou/uL (4.8-10.8)
[2021-10-01 07:37] LABS: Actual Bicarbonate (HCO3a) 25.8 mEq/L (22-28); Base Excess (BEa) 1.2 mEq/L (-2.0 to +3.0); CO2 Tension 41.2 mmHg (35.0-45.0); Calcium, Ionized (arterial) 1.16 mmol/L (1.12-1.30); Carboxyhemoglobin (COHb) 1.4 gm% (0.0-3.0); Hemoglobin (Hb) 13.5 g/dL (14.0-18.0); O2 Tension (PaO2), arterial 70.3 mmHg (> 80.0); Potassium - ABG Lab 3.28 mmol/L (3.70-5.30); pH, Arterial 7.42 (7.35-7.45)
[2021-10-01 07:45] LABS: Puncture Site RRA
[2021-10-01] MEDS: Mometasone 100 MCG/Formoterol 5 MCG 120 PUFF INHALER INH SCH ×2 (07:51→19:30)
[2021-10-01] MEDS ORDERED: Lactated Ringer's 500 ML IV SCH (08:15)
[2021-10-01] MEDS: Meropenem 1 GM in Sodium Chloride 0.9% 100 ML IVPB SCH ×3 (08:30→20:31)
[2021-10-01] MEDS: busPIRone HCl 10 MG TAB PER TUBE SCH ×2 (10:17→20:29)
[2021-10-01] MEDS: Potassium Chloride 20 MEQ TAB PER TUBE SCH (10:17)
[2021-10-01] MEDS: Enoxaparin Sodium 80 MG/0.8 ML SYRINGE SC SCH ×2 (10:17→20:28)
[2021-10-01] MEDS: Pantoprazole 40 MG VIAL IVP SCH ×2 (10:18→20:29)
[2021-10-01] MEDS: Norepinephrine 8 MG/0.9% NS 250 ML IVPB SCH (10:18)
[2021-10-01] MEDS: Senokot S 8.6-50 MG TAB PER TUBE SCH ×2 (10:18→20:28)
[2021-10-01] MEDS: Polyethylene Glycol 3350 17 GM Packet PER TUBE SCH (10:18)
[2021-10-01] MEDS: Sodium Chloride 0.65% Nasal 44 ML BOT EA NARE SCH ×3 (11:32→20:30)
[2021-10-01] MEDS: Micafungin 100 MG in Sodium Chloride 0.9% 100 ML IVPB SCH (12:12)
[2021-10-01] MEDS: Atorvastatin Calcium 20 MG TAB PER TUBE SCH (20:28)
[2021-10-02 02:39] LABS: #Eosinphils 0.1 thou/uL (0.0-0.7); #Lymphocytes 1.6 thou/uL (1.20-3.40); #Monocytes 0.4 thou/uL (0.11-0.59); #Neutrophils 5.2 thou/uL (1.40-6.50); %Basophils 0.3 % (0.0-1.0); %Lymphocytes 21.6 % (21.0-51.0); %Monocytes 5.1 % (0.0-10.0); Hemoglobin 8.8 g/dL (14.0-18.0); Mean Corpuscular HGB CONC 32.3 g/dL (32.0-36.0); Mean Corpuscular Hemoglobin 32.5 pg (27.0-31.0); Mean Platelet Volume 6.5 fL (7.4-10.4); Platelet Count 298 thou/uL (130-400); RBC Distribution Width 15.6 % (11.5-14.5); White Blood Cell (WBC) Count 7.2 thou/uL (4.8-10.8)
[2021-10-02 03:02] LABS: ALT (SGPT) 16 U/L (8-55); AST (SGOT) 14 U/L (5-34); Albumin 2.4 g/dL (3.4-4.8); Alkaline Phosphatase 59 U/L (40-110); Anion Gap 16 mmol/L (10-20); BUN (Urea Nitrogen) 10 mg/dL (8.4-25.7); Bilirubin, Total 0.3 mg/dL (0.2-1.2); Calc. Creatinine Clearance 114 mL/min (70-130); Calcium 8.2 mg/dL (7.8-10.44); Carbon Dioxide 26 mmol/L (23-31); Chloride 103 mmol/L (98-107); Globulin 3.2 g/dL (2.4-3.5); Glucose 94 mg/dL (80-115); Potassium 3.6 mmol/L (3.5-5.1); Protein, Total 5.6 g/dL (5.8-8.1); Sodium 141 mmol/L (136-145)
[2021-10-02] MEDS: fentaNYL Citrate-0.9 % NaCl/PF 100 ML IVPB SCH (03:29)
[2021-10-02] MEDS: Norepinephrine 8 MG/0.9% NS 250 ML IVPB SCH (05:06)
[2021-10-02] MEDS: Meropenem 1 GM in Sodium Chloride 0.9% 100 ML IVPB SCH ×3 (05:07→21:11)
[2021-10-02] MEDS: Mometasone 100 MCG/Formoterol 5 MCG 120 PUFF INHALER INH SCH ×2 (07:49→18:59)
[2021-10-02] MEDS: busPIRone HCl 10 MG TAB PER TUBE SCH ×2 (08:38→20:32)
[2021-10-02] MEDS: Senokot S 8.6-50 MG TAB PER TUBE SCH ×2 (08:38→20:33)
[2021-10-02] MEDS: Enoxaparin Sodium 80 MG/0.8 ML SYRINGE SC SCH ×2 (08:38→20:32)
[2021-10-02] MEDS: Potassium Chloride 20 MEQ TAB PER TUBE SCH (08:38)
[2021-10-02] MEDS: Pantoprazole 40 MG VIAL IVP SCH ×2 (08:39→20:33)
[2021-10-02] MEDS: Sodium Chloride 0.65% Nasal 44 ML BOT EA NARE SCH ×3 (09:18→20:33)
[2021-10-02] MEDS: Polyethylene Glycol 3350 17 GM Packet PER TUBE SCH (09:18)
[2021-10-02] MEDS: Micafungin 100 MG in Sodium Chloride 0.9% 100 ML IVPB SCH (12:47)
[2021-10-02] MEDS: Atorvastatin Calcium 20 MG TAB PER TUBE SCH (20:32)
[2021-10-03] MEDS: Meropenem 1 GM in Sodium Chloride 0.9% 100 ML IVPB SCH ×3 (05:47→22:22)
[2021-10-03 06:10] LABS: #Eosinphils 0.1 thou/uL (0.0-0.7); #Lymphocytes 1.8 thou/uL (1.20-3.40); #Monocytes 0.4 thou/uL (0.11-0.59); %Basophils 0.1 % (0.0-1.0); %Eosinophils 1.3 % (0.0-10.0); %Lymphocytes 29.2 % (21.0-51.0); %Monocytes 5.6 % (0.0-10.0); %Neutrophils 63.8 % (42.0-75.0); Hemoglobin 9.2 g/dL (14.0-18.0); Mean Corpuscular Hemoglobin 32.1 pg (27.0-31.0); Mean Platelet Volume 6.6 fL (7.4-10.4); Platelet Count 310 thou/uL (130-400); RBC Distribution Width 15.5 % (11.5-14.5); Red Blood Cell (RBC) Count 2.86 mill/uL (4.70-6.10); White Blood Cell (WBC) Count 6.3 thou/uL (4.8-10.8)
[2021-10-03 06:30] LABS: ALT (SGPT) 21 U/L (8-55); AST (SGOT) 23 U/L (5-34); Albumin 2.5 g/dL (3.4-4.8); Alkaline Phosphatase 70 U/L (40-110); Anion Gap 15 mmol/L (10-20); BUN (Urea Nitrogen) 11 mg/dL (8.4-25.7); Bilirubin, Total 0.3 mg/dL (0.2-1.2); Calc. Creatinine Clearance 127 mL/min (70-130); Calcium 8.1 mg/dL (7.8-10.44); Carbon Dioxide 30 mmol/L (23-31); Chloride 100 mmol/L (98-107); Globulin 3.1 g/dL (2.4-3.5); Glucose 152 mg/dL (80-115); Potassium 3.5 mmol/L (3.5-5.1); Protein, Total 5.6 g/dL (5.8-8.1); Sodium 141 mmol/L (136-145)
[2021-10-03] MEDS: Mometasone 100 MCG/Formoterol 5 MCG 120 PUFF INHALER INH SCH ×2 (07:21→18:55)
[2021-10-03 07:43] LABS: Actual Bicarbonate (HCO3a) 30.6 mEq/L (22-28); Analyzer IN Cardio OR; Base Excess (BEa) 6.7 mEq/L (-2.0 to +3.0); CO2 Tension 41.4 mmHg (35.0-45.0); Carboxyhemoglobin (COHb) 1.7 gm% (0.0-3.0); Hemoglobin (Hb) 9.5 g/dL (14.0-18.0); Potassium - ABG Lab 3.52 mmol/L (3.70-5.30); pH, Arterial 7.49 (7.35-7.45)
[2021-10-03 07:52] LABS: Puncture Site RRA
[2021-10-03] MEDS ORDERED: Potassium Chloride 20 MEQ TAB PER TUBE SCH (08:00)
[2021-10-03 08:58] LABS: Magnesium 1.9 mg/dL (1.6-2.6)
[2021-10-03] MEDS ORDERED: Lactated Ringer's 500 ML IV SCH (09:00)
[2021-10-03] MEDS: Potassium Chloride 20 MEQ TAB PER TUBE SCH (09:06)
[2021-10-03] MEDS: Pantoprazole 40 MG VIAL IVP SCH ×2 (09:29→20:04)
[2021-10-03] MEDS: busPIRone HCl 10 MG TAB PER TUBE SCH ×2 (09:30→20:04)
[2021-10-03] MEDS ORDERED: Magnesium 2 GM/50 ML 2 GM in Premix Bag 1 BAG IVPB SCH (10:00)
[2021-10-03] MEDS ORDERED: Pancrelipase DR 12,000 1 CAP FS PRN (10:15)
[2021-10-03] MEDS ORDERED: Sodium Bicarbonate Tab 325 MG TAB PER TUBE PRN (10:15)
[2021-10-03] MEDS: Sodium Chloride 0.65% Nasal 44 ML BOT EA NARE SCH ×3 (11:09→20:05)
[2021-10-03] MEDS: Polyethylene Glycol 3350 17 GM Packet PER TUBE SCH (11:09)
[2021-10-03] MEDS: Senokot S 8.6-50 MG TAB PER TUBE SCH ×2 (11:09→20:04)
[2021-10-03] MEDS: fentaNYL Citrate-0.9 % NaCl/PF 100 ML IVPB SCH (11:10)
[2021-10-03] MEDS: Micafungin 100 MG in Sodium Chloride 0.9% 100 ML IVPB SCH (13:42)
[2021-10-03] MEDS: Acetylcysteine 10% 100 MG/ML 30 ml Vial INH SCH ×2 (13:54→18:55)
[2021-10-03] MEDS: Enoxaparin Sodium 80 MG/0.8 ML SYRINGE SC SCH (13:55)
[2021-10-03 17:20] LABS: ALV-art Gradient 188.025 mmHg (0-20); Actual Bicarbonate (HCO3a) 30.7 mEq/L (22-28); Base Excess (BEa) 6.3 mEq/L (-2.0 to +3.0); CO2 Tension 43.9 mmHg (35.0-45.0); Calcium, Ionized (arterial) 1.08 mmol/L (1.12-1.30); Carboxyhemoglobin (COHb) 1.4 gm% (0.0-3.0); Hemoglobin (Hb) 9.4 g/dL (14.0-18.0); O2 Tension (PaO2), arterial 42.3 mmHg (> 80.0); Potassium - ABG Lab 3.74 mmol/L (3.70-5.30); Puncture Site RRA; pH, Arterial 7.46 (7.35-7.45)
[2021-10-03] MEDS: Atorvastatin Calcium 20 MG TAB PER TUBE SCH (20:04)
[2021-10-03] MEDS: Norepinephrine 8 MG/0.9% NS 250 ML IVPB SCH (20:06)
[2021-10-04] MEDS: Acetylcysteine 10% 100 MG/ML 30 ml Vial INH SCH ×4 (02:44→18:55)
[2021-10-04] MEDS: fentaNYL Citrate-0.9 % NaCl/PF 100 ML IVPB SCH ×2 (03:24→20:38)
[2021-10-04] MEDS: Meropenem 1 GM in Sodium Chloride 0.9% 100 ML IVPB SCH ×3 (05:32→21:44)
[2021-10-04] MEDS ORDERED: CEFAZOLIN 1 GM in Sodium Chloride 0.9% 100 ML IVPB SCH (06:00)
[2021-10-04] MEDS ORDERED: Vecuronium 10 MG VIAL IVP SCH (06:00)
[2021-10-04] MEDS ORDERED: Midazolam HCl 2 mg/2 ml Vial SLOW IVP SCH (06:00)
[2021-10-04] MEDS ORDERED: CEFAZOLIN 1 GM VIAL SLOW IVP SCH (06:00)
[2021-10-04] MEDS: Mometasone 100 MCG/Formoterol 5 MCG 120 PUFF INHALER INH SCH ×2 (06:41→18:53)
[2021-10-04] MEDS ORDERED: Lidocaine 1% w/Epinephrine 1:100K 20 ML VIAL FS SCH (07:45)
[2021-10-04] MEDS ORDERED: ceFAZolin 2 GM/Dextrose 50 ML 2 GM in Premix Bag 1 BAG IVPB SCH (07:45)
[2021-10-04] MEDS: Micafungin 100 MG in Sodium Chloride 0.9% 100 ML IVPB SCH (11:58)
[2021-10-04] MEDS: Potassium Chloride 20 MEQ TAB PER TUBE SCH (11:59)
[2021-10-04] MEDS: Polyethylene Glycol 3350 17 GM Packet PER TUBE SCH (11:59)
[2021-10-04] MEDS: Pantoprazole 40 MG VIAL IVP SCH ×2 (11:59→20:41)
[2021-10-04] MEDS: Senokot S 8.6-50 MG TAB PER TUBE SCH ×2 (11:59→20:41)
[2021-10-04] MEDS: busPIRone HCl 10 MG TAB PER TUBE SCH ×2 (11:59→20:41)
[2021-10-04] MEDS: Sodium Chloride 0.65% Nasal 44 ML BOT EA NARE SCH ×3 (12:00→20:41)
[2021-10-04] MEDS: Atorvastatin Calcium 20 MG TAB PER TUBE SCH (20:41)
[2021-10-05] MEDS: Acetylcysteine 10% 100 MG/ML 30 ml Vial INH SCH ×4 (00:39→18:19)
[2021-10-05] MEDS: Meropenem 1 GM in Sodium Chloride 0.9% 100 ML IVPB SCH ×3 (06:12→21:52)
[2021-10-05 06:18] LABS: #Eosinphils 0.1 thou/uL (0.0-0.7); #Lymphocytes 2.1 thou/uL (1.20-3.40); #Monocytes 0.5 thou/uL (0.11-0.59); #Neutrophils 3.6 thou/uL (1.40-6.50); %Basophils 0.5 % (0.0-1.0); %Lymphocytes 33.7 % (21.0-51.0); %Monocytes 7.2 % (0.0-10.0); %Neutrophils 56.5 % (42.0-75.0); Hemoglobin 9.4 g/dL (14.0-18.0); Mean Corpuscular HGB CONC 32.2 g/dL (32.0-36.0); Mean Corpuscular Hemoglobin 32.5 pg (27.0-31.0); Platelet Count 245 thou/uL (130-400); RBC Distribution Width 16.2 % (11.5-14.5); Red Blood Cell (RBC) Count 2.89 mill/uL (4.70-6.10); White Blood Cell (WBC) Count 6.3 thou/uL (4.8-10.8)
[2021-10-05 06:19] LABS: Anion Gap 17 mmol/L (10-20); BUN (Urea Nitrogen) 8 mg/dL (8.4-25.7); Calc. Creatinine Clearance 142 mL/min (70-130); Calcium 7.9 mg/dL (7.8-10.44); Carbon Dioxide 26 mmol/L (23-31); Chloride 100 mmol/L (98-107); Glucose 113 mg/dL (80-115); Potassium 3.8 mmol/L (3.5-5.1); Sodium 139 mmol/L (136-145)
[2021-10-05] MEDS: Mometasone 100 MCG/Formoterol 5 MCG 120 PUFF INHALER INH SCH ×2 (07:14→18:16)
[2021-10-05 07:45] LABS: Actual Bicarbonate (HCO3a) 26.7 mEq/L (22-28); Base Excess (BEa) 2.6 mEq/L (-2.0 to +3.0); CO2 Tension 39.5 mmHg (35.0-45.0); Calcium, Ionized (arterial) 1.09 mmol/L (1.12-1.30); Carboxyhemoglobin (COHb) 0.6 gm% (0.0-3.0); Hemoglobin (Hb) 10.1 g/dL (14.0-18.0); Potassium - ABG Lab 4.02 mmol/L (3.70-5.30); pH, Arterial 7.45 (7.35-7.45)
[2021-10-05 07:46] LABS: O2 Tension (PaO2), arterial 56.2 mmHg (> 80.0)
[2021-10-05 07:48] LABS: ALV-art Gradient 250.925 mmHg (0-20)
[2021-10-05] MEDS: Lorazepam 1 MG TAB PER TUBE SCH ×3 (09:43→20:41)
[2021-10-05] MEDS: Senokot S 8.6-50 MG TAB PER TUBE SCH ×2 (09:43→20:40)
[2021-10-05] MEDS: Polyethylene Glycol 3350 17 GM Packet PER TUBE SCH (09:44)
[2021-10-05] MEDS: Potassium Chloride 20 MEQ TAB PER TUBE SCH (09:44)
[2021-10-05] MEDS: predniSONE 20 MG TAB PER TUBE SCH (09:44)
[2021-10-05] MEDS: busPIRone HCl 10 MG TAB PER TUBE SCH ×2 (09:44→20:41)
[2021-10-05] MEDS: Sodium Chloride 0.65% Nasal 44 ML BOT EA NARE SCH ×3 (09:45→20:42)
[2021-10-05] MEDS: Midodrine HCl 5 MG TAB PER TUBE SCH ×3 (09:53→20:41)
[2021-10-05] MEDS: Lansoprazole 3 MG/ML ORAL SUSPENSION PER TUBE SCH ×2 (10:59→20:39)
[2021-10-05] MEDS: Micafungin 100 MG in Sodium Chloride 0.9% 100 ML IVPB SCH (13:46)
[2021-10-05] MEDS: HumaLOG 300 UNITS/3 ML VIAL SC PRN ×2 (16:24→20:40)
[2021-10-05] MEDS: Atorvastatin Calcium 20 MG TAB PER TUBE SCH (20:41)
[2021-10-06] MEDS: Acetylcysteine 10% 100 MG/ML 30 ml Vial INH SCH ×4 (00:26→20:29)
[2021-10-06] MEDS: HumaLOG 300 UNITS/3 ML VIAL SC PRN ×3 (03:28→16:10)
[2021-10-06 04:42] LABS: #Basophils 0.1 thou/uL (0.0-0.2); #Eosinphils 0.1 thou/uL (0.0-0.7); #Lymphocytes 2.2 thou/uL (1.20-3.40); #Monocytes 0.6 thou/uL (0.11-0.59); #Neutrophils 5.9 thou/uL (1.40-6.50); %Basophils 0.6 % (0.0-1.0); %Eosinophils 1.7 % (0.0-10.0); %Lymphocytes 24.5 % (21.0-51.0); %Neutrophils 66.3 % (42.0-75.0); Hemoglobin 9.9 g/dL (14.0-18.0); Mean Corpuscular HGB CONC 32.8 g/dL (32.0-36.0); Mean Corpuscular Hemoglobin 32.5 pg (27.0-31.0); Mean Corpuscular Volume 99.2 fL (78.0-98.0); Mean Platelet Volume 7.3 fL (7.4-10.4); Platelet Count 241 thou/uL (130-400); Red Blood Cell (RBC) Count 3.04 mill/uL (4.70-6.10); White Blood Cell (WBC) Count 8.9 thou/uL (4.8-10.8)
[2021-10-06 04:57] LABS: Anion Gap 18 mmol/L (10-20); BUN (Urea Nitrogen) 14 mg/dL (8.4-25.7); Calc. Creatinine Clearance 117 mL/min (70-130); Carbon Dioxide 24 mmol/L (23-31); Chloride 100 mmol/L (98-107); Glucose 149 mg/dL (80-115); Potassium 4.1 mmol/L (3.5-5.1); Sodium 138 mmol/L (136-145)
[2021-10-06] MEDS: Meropenem 1 GM in Sodium Chloride 0.9% 100 ML IVPB SCH ×3 (05:46→21:46)
[2021-10-06] MEDS: Mometasone 100 MCG/Formoterol 5 MCG 120 PUFF INHALER INH SCH ×2 (07:43→18:34)
[2021-10-06 08:00] LABS: Actual Bicarbonate (HCO3a) 25.8 mEq/L (22-28); Base Excess (BEa) 2.4 mEq/L (-2.0 to +3.0); CO2 Tension 35.7 mmHg (35.0-45.0); Calcium, Ionized (arterial) 1.14 mmol/L (1.12-1.30); Carboxyhemoglobin (COHb) 1.3 gm% (0.0-3.0); Hemoglobin (Hb) 13.7 g/dL (14.0-18.0); Potassium - ABG Lab 4.09 mmol/L (3.70-5.30); pH, Arterial 7.48 (7.35-7.45)
[2021-10-06 08:04] LABS: O2 Tension (PaO2), arterial 47.6 mmHg (> 80.0); Puncture Site LRA
[2021-10-06 08:06] LABS: ALV-art Gradient 299.925 mmHg (0-20)
[2021-10-06] MEDS: Polyethylene Glycol 3350 17 GM Packet PER TUBE SCH (08:07)
[2021-10-06] MEDS: Potassium Chloride 20 MEQ TAB PER TUBE SCH (08:08)
[2021-10-06] MEDS: Lorazepam 1 MG TAB PER TUBE SCH ×3 (08:08→20:26)
[2021-10-06] MEDS: predniSONE 20 MG TAB PER TUBE SCH (08:08)
[2021-10-06] MEDS: Senokot S 8.6-50 MG TAB PER TUBE SCH ×2 (08:08→20:26)
[2021-10-06] MEDS: busPIRone HCl 10 MG TAB PER TUBE SCH ×2 (08:08→20:26)
[2021-10-06] MEDS: Midodrine HCl 5 MG TAB PER TUBE SCH ×3 (08:12→20:26)
[2021-10-06] MEDS: Lansoprazole 3 MG/ML ORAL SUSPENSION PER TUBE SCH ×2 (08:13→20:26)
[2021-10-06] MEDS: Sodium Chloride 0.65% Nasal 44 ML BOT EA NARE SCH ×3 (11:25→20:27)
[2021-10-06] MEDS: Micafungin 100 MG in Sodium Chloride 0.9% 100 ML IVPB SCH (11:48)
[2021-10-06] MEDS ORDERED: Norepinephrine 8 MG/0.9% NS 250 ML ONE (12:41)
[2021-10-06] MEDS ORDERED: Norepinephrine 8 MG/0.9% NS 250 ML IVPB PRN (12:42)
[2021-10-06] MEDS: Atorvastatin Calcium 20 MG TAB PER TUBE SCH (20:26)
[2021-10-07] MEDS: HumaLOG 300 UNITS/3 ML VIAL SC PRN ×3 (00:33→18:21)
[2021-10-07] MEDS: Acetylcysteine 10% 100 MG/ML 30 ml Vial INH SCH ×4 (02:17→21:23)
[2021-10-07] MEDS: Morphine 4 MG/ML VIAL SLOW IVP PRN (04:04)
[2021-10-07 05:20] LABS: Anion Gap 15 mmol/L (10-20); BUN (Urea Nitrogen) 15 mg/dL (8.4-25.7); Calc. Creatinine Clearance 138 mL/min (70-130); Calcium 7.9 mg/dL (7.8-10.44); Carbon Dioxide 30 mmol/L (23-31); Chloride 99 mmol/L (98-107); Glucose 159 mg/dL (80-115); Potassium 3.7 mmol/L (3.5-5.1); Sodium 140 mmol/L (136-145)
[2021-10-07 06:47] LABS: Hemoglobin 9.7 g/dL (14.0-18.0); Mean Corpuscular HGB CONC 31.2 g/dL (32.0-36.0); Mean Corpuscular Hemoglobin 31.7 pg (27.0-31.0); Mean Platelet Volume 7.2 fL (7.4-10.4); Platelet Count 256 thou/uL (130-400); RBC Distribution Width 16.4 % (11.5-14.5); Red Blood Cell (RBC) Count 3.06 mill/uL (4.70-6.10); White Blood Cell (WBC) Count 7.7 thou/uL (4.8-10.8)
[2021-10-07] MEDS: Mometasone 100 MCG/Formoterol 5 MCG 120 PUFF INHALER INH SCH ×2 (07:25→19:09)
[2021-10-07 07:33] LABS: Actual Bicarbonate (HCO3a) 31.1 mEq/L (22-28); Base Excess (BEa) 7.3 mEq/L (-2.0 to +3.0); CO2 Tension 40.8 mmHg (35.0-45.0); Calcium, Ionized (arterial) 1.08 mmol/L (1.12-1.30); Carboxyhemoglobin (COHb) 0.8 gm% (0.0-3.0); Hemoglobin (Hb) 10.9 g/dL (14.0-18.0); Potassium - ABG Lab 3.99 mmol/L (3.70-5.30)
[2021-10-07 07:34] LABS: Puncture Site RRA
[2021-10-07 08:09] LABS: Band 16 % (5-11); Lymphocytes 27 % (21-51); MDiff Complete? YES; Monocytes 8 % (0-10); Myelocyte 1 % (0-0); Neutrophil 42 % (42-75); Nucleated RBC 1 % (0); Platelet Morphology Comment Appears Adequate; Polychromasia MODERATE = 3-4 cells (100X) (0-2/hpf); Reactive Lymphocytes 4 % (0-10)
[2021-10-07] MEDS: Polyethylene Glycol 3350 17 GM Packet PER TUBE SCH (08:55)
[2021-10-07] MEDS: Senokot S 8.6-50 MG TAB PER TUBE SCH ×2 (08:55→21:23)
[2021-10-07] MEDS: Midodrine HCl 5 MG TAB PER TUBE SCH ×3 (08:55→21:23)
[2021-10-07] MEDS: busPIRone HCl 10 MG TAB PER TUBE SCH ×2 (08:55→21:23)
[2021-10-07] MEDS: Lorazepam 1 MG TAB PER TUBE SCH ×3 (08:55→21:23)
[2021-10-07] MEDS: Potassium Chloride 20 MEQ TAB PER TUBE SCH (08:55)
[2021-10-07] MEDS: Sodium Chloride 0.65% Nasal 44 ML BOT EA NARE SCH ×3 (08:56→21:22)
[2021-10-07] MEDS: predniSONE 20 MG TAB PER TUBE SCH (09:09)
[2021-10-07] MEDS: Lansoprazole 3 MG/ML ORAL SUSPENSION PER TUBE SCH ×2 (09:10→21:22)
[2021-10-07] MEDS: Enoxaparin Sodium 40 MG/0.4 ML SYRINGE SC SCH (11:43)
[2021-10-07] MEDS: Atorvastatin Calcium 20 MG TAB PER TUBE SCH (21:23)
[2021-10-08] MEDS: Lorazepam 2 MG/ML VIAL SLOW IVP PRN (02:29)
[2021-10-08] MEDS: Acetylcysteine 10% 100 MG/ML 30 ml Vial INH SCH ×5 (03:30→23:13)
[2021-10-08] MEDS: Ondansetron PF 4 MG/2 ML Vial IVP PRN (04:04)
[2021-10-08 04:41] LABS: #Eosinphils 0.4 thou/uL (0.0-0.7); #Lymphocytes 2.3 thou/uL (1.20-3.40); #Monocytes 0.8 thou/uL (0.11-0.59); #Neutrophils 4.8 thou/uL (1.40-6.50); %Basophils 0.5 % (0.0-1.0); %Eosinophils 4.7 % (0.0-10.0); %Lymphocytes 28.2 % (21.0-51.0); %Monocytes 9.2 % (0.0-10.0); %Neutrophils 57.5 % (42.0-75.0); Hemoglobin 10.6 g/dL (14.0-18.0); Mean Corpuscular HGB CONC 32.7 g/dL (32.0-36.0); Mean Corpuscular Hemoglobin 33.1 pg (27.0-31.0); Mean Platelet Volume 7.4 fL (7.4-10.4); Platelet Count 255 thou/uL (130-400); RBC Distribution Width 16.6 % (11.5-14.5); Red Blood Cell (RBC) Count 3.21 mill/uL (4.70-6.10); White Blood Cell (WBC) Count 8.3 thou/uL (4.8-10.8)
[2021-10-08 04:53] LABS: Anion Gap 11 mmol/L (10-20); BUN (Urea Nitrogen) 15 mg/dL (8.4-25.7); Calc. Creatinine Clearance 147 mL/min (70-130); Calcium 8.2 mg/dL (7.8-10.44); Carbon Dioxide 32 mmol/L (23-31); Chloride 98 mmol/L (98-107); Glucose 185 mg/dL (80-115); Potassium 3.8 mmol/L (3.5-5.1); Sodium 137 mmol/L (136-145)
[2021-10-08] MEDS: HumaLOG 300 UNITS/3 ML VIAL SC PRN ×3 (06:09→16:35)
[2021-10-08] MEDS: Mometasone 100 MCG/Formoterol 5 MCG 120 PUFF INHALER INH SCH ×2 (07:05→19:45)
[2021-10-08] MEDS: Lorazepam 1 MG TAB PER TUBE SCH ×3 (08:01→21:02)
[2021-10-08] MEDS: Potassium Chloride 20 MEQ TAB PER TUBE SCH (08:01)
[2021-10-08] MEDS: busPIRone HCl 10 MG TAB PER TUBE SCH ×2 (08:01→21:02)
[2021-10-08] MEDS: Midodrine HCl 5 MG TAB PER TUBE SCH ×3 (08:01→21:02)
[2021-10-08] MEDS: Senokot S 8.6-50 MG TAB PER TUBE SCH ×2 (08:01→21:02)
[2021-10-08] MEDS: Polyethylene Glycol 3350 17 GM Packet PER TUBE SCH (08:02)
[2021-10-08] MEDS: Lansoprazole 3 MG/ML ORAL SUSPENSION PER TUBE SCH ×2 (08:02→21:01)
[2021-10-08] MEDS: Enoxaparin Sodium 40 MG/0.4 ML SYRINGE SC SCH (08:05)
[2021-10-08] MEDS: predniSONE 20 MG TAB PER TUBE SCH (08:06)
[2021-10-08] MEDS: Sodium Chloride 0.65% Nasal 44 ML BOT EA NARE SCH ×3 (08:07→21:17)
[2021-10-08] MEDS ORDERED: Albumin 25% 25 GM/100 ML BOT IVPB SCH (15:00)
[2021-10-08] MEDS: Atorvastatin Calcium 20 MG TAB PER TUBE SCH (21:02)
[2021-10-08] MEDS: Morphine 4 MG/ML VIAL SLOW IVP PRN (22:15)
[2021-10-09] MEDS: Lorazepam 2 MG/ML VIAL SLOW IVP PRN (04:10)
[2021-10-09 04:32] LABS: Anion Gap 14 mmol/L (10-20); BUN (Urea Nitrogen) 17 mg/dL (8.4-25.7); Calc. Creatinine Clearance 136 mL/min (70-130); Calcium 8.6 mg/dL (7.8-10.44); Carbon Dioxide 31 mmol/L (23-31); Chloride 97 mmol/L (98-107); Glucose 180 mg/dL (80-115); Sodium 138 mmol/L (136-145)
[2021-10-09 05:27] LABS: Hemoglobin 10.5 g/dL (14.0-18.0); Mean Corpuscular HGB CONC 32.6 g/dL (32.0-36.0); Mean Corpuscular Hemoglobin 32.9 pg (27.0-31.0); Mean Platelet Volume 7.5 fL (7.4-10.4); Platelet Count 273 thou/uL (130-400); RBC Distribution Width 16.4 % (11.5-14.5); Red Blood Cell (RBC) Count 3.21 mill/uL (4.70-6.10); White Blood Cell (WBC) Count 8.8 thou/uL (4.8-10.8)
[2021-10-09 05:53] LABS: Band 15 % (5-11); Lymphocytes 33 % (21-51); MDiff Complete? YES; Monocytes 4 % (0-10); Neutrophil 47 % (42-75); Nucleated RBC 1 % (0)
[2021-10-09] MEDS: HumaLOG 300 UNITS/3 ML VIAL SC PRN ×4 (06:08→23:13)
[2021-10-09] MEDS: Acetylcysteine 10% 100 MG/ML 30 ml Vial INH SCH ×3 (07:14→19:40)
[2021-10-09] MEDS: Enoxaparin Sodium 40 MG/0.4 ML SYRINGE SC SCH (08:02)
[2021-10-09] MEDS: Senokot S 8.6-50 MG TAB PER TUBE SCH ×2 (08:02→20:30)
[2021-10-09] MEDS: Lorazepam 1 MG TAB PER TUBE SCH ×3 (08:02→20:29)
[2021-10-09] MEDS: Polyethylene Glycol 3350 17 GM Packet PER TUBE SCH (08:02)
[2021-10-09] MEDS: Lansoprazole 3 MG/ML ORAL SUSPENSION PER TUBE SCH ×2 (08:03→20:30)
[2021-10-09] MEDS: Potassium Chloride 20 MEQ TAB PER TUBE SCH ×2 (08:04→10:08)
[2021-10-09] MEDS: busPIRone HCl 10 MG TAB PER TUBE SCH ×3 (08:09→20:29)
[2021-10-09] MEDS: predniSONE 20 MG TAB PER TUBE SCH (08:09)
[2021-10-09] MEDS: Midodrine HCl 5 MG TAB PER TUBE SCH ×3 (08:11→20:30)
[2021-10-09] MEDS: Sodium Chloride 0.65% Nasal 44 ML BOT EA NARE SCH ×3 (08:22→21:08)
[2021-10-09] MEDS ORDERED: busPIRone HCl 5 MG TAB PER TUBE SCH (09:45)
[2021-10-09] MEDS: Potassium Bicarbonate/Cit Ac 20 MEQ TAB PER TUBE SCH (10:07)
[2021-10-09] MEDS: Mometasone 100 MCG/Formoterol 5 MCG 120 PUFF INHALER INH SCH ×2 (11:10→19:40)
[2021-10-09] MEDS: Atorvastatin Calcium 20 MG TAB PER TUBE SCH (20:29)
[2021-10-09] MEDS: Ondansetron PF 4 MG/2 ML Vial IVP PRN (21:01)
[2021-10-10] MEDS: Acetylcysteine 10% 100 MG/ML 30 ml Vial INH SCH ×2 (02:43→08:06)
[2021-10-10 04:06] LABS: #Basophils 0.1 thou/uL (0.0-0.2); #Eosinphils 0.5 thou/uL (0.0-0.7); #Lymphocytes 3.3 thou/uL (1.20-3.40); #Monocytes 0.9 thou/uL (0.11-0.59); #Neutrophils 5.1 thou/uL (1.40-6.50); %Basophils 0.7 % (0.0-1.0); %Lymphocytes 33.7 % (21.0-51.0); %Monocytes 8.8 % (0.0-10.0); %Neutrophils 51.9 % (42.0-75.0); Hemoglobin 11.1 g/dL (14.0-18.0); Mean Corpuscular HGB CONC 32.1 g/dL (32.0-36.0); Mean Corpuscular Hemoglobin 32.2 pg (27.0-31.0); Mean Platelet Volume 7.2 fL (7.4-10.4); Platelet Count 296 thou/uL (130-400); RBC Distribution Width 16.6 % (11.5-14.5); Red Blood Cell (RBC) Count 3.45 mill/uL (4.70-6.10); White Blood Cell (WBC) Count 9.8 thou/uL (4.8-10.8)
[2021-10-10 04:35] LABS: Anion Gap 27 mmol/L (10-20); BUN (Urea Nitrogen) 19 mg/dL (8.4-25.7); Calc. Creatinine Clearance 128 mL/min (70-130); Calcium 8.6 mg/dL (7.8-10.44); Carbon Dioxide 17 mmol/L (23-31); Chloride 96 mmol/L (98-107); Glucose 174 mg/dL (80-115); Potassium 3.9 mmol/L (3.5-5.1); Sodium 136 mmol/L (136-145)
[2021-10-10] MEDS: HumaLOG 300 UNITS/3 ML VIAL SC PRN ×4 (04:47→22:53)
[2021-10-10] MEDS: Lorazepam 2 MG/ML VIAL SLOW IVP PRN ×2 (07:45→16:01)
[2021-10-10] MEDS: Mometasone 100 MCG/Formoterol 5 MCG 120 PUFF INHALER INH SCH ×2 (08:09→19:27)
[2021-10-10] MEDS: Senokot S 8.6-50 MG TAB PER TUBE SCH ×2 (08:20→20:55)
[2021-10-10] MEDS: Polyethylene Glycol 3350 17 GM Packet PER TUBE SCH (08:20)
[2021-10-10] MEDS: Enoxaparin Sodium 40 MG/0.4 ML SYRINGE SC SCH (08:20)
[2021-10-10] MEDS: Potassium Bicarbonate/Cit Ac 20 MEQ TAB PER TUBE SCH (08:20)
[2021-10-10] MEDS: Lorazepam 1 MG TAB PER TUBE SCH ×3 (08:21→20:55)
[2021-10-10] MEDS: Lansoprazole 3 MG/ML ORAL SUSPENSION PER TUBE SCH ×2 (08:22→20:55)
[2021-10-10] MEDS: Sodium Chloride 0.65% Nasal 44 ML BOT EA NARE SCH ×3 (08:30→20:56)
[2021-10-10] MEDS: busPIRone HCl 10 MG TAB PER TUBE SCH ×2 (08:39→20:55)
[2021-10-10] MEDS: Midodrine HCl 5 MG TAB PER TUBE SCH ×3 (08:41→20:55)
[2021-10-10] MEDS ORDERED: predniSONE 5 MG TAB PER TUBE SCH (08:45)
[2021-10-10] MEDS ORDERED: Lantus 1000 UNITS/10 ML VIAL SC SCH (09:00)
[2021-10-10] MEDS: Atorvastatin Calcium 20 MG TAB PER TUBE SCH (20:55)
[2021-10-11] MEDS: Lorazepam 2 MG/ML VIAL SLOW IVP PRN (02:32)
[2021-10-11] MEDS: HumaLOG 300 UNITS/3 ML VIAL SC PRN ×3 (03:30→16:24)
[2021-10-11] MEDS: Morphine 4 MG/ML VIAL SLOW IVP PRN ×3 (05:03→21:53)
[2021-10-11 05:25] LABS: Anion Gap 13 mmol/L (10-20); BUN (Urea Nitrogen) 17 mg/dL (8.4-25.7); Calc. Creatinine Clearance 117 mL/min (70-130); Calcium 8.8 mg/dL (7.8-10.44); Carbon Dioxide 33 mmol/L (23-31); Chloride 97 mmol/L (98-107); Glucose 161 mg/dL (80-115); Sodium 139 mmol/L (136-145)
[2021-10-11 05:40] LABS: Band 15 % (5-11); Hemoglobin 11.7 g/dL (14.0-18.0); Lymphocytes 14 % (21-51); MDiff Complete? YES; Mean Corpuscular HGB CONC 32.5 g/dL (32.0-36.0); Mean Corpuscular Hemoglobin 32.5 pg (27.0-31.0); Mean Corpuscular Volume 99.8 fL (78.0-98.0); Mean Platelet Volume 7.7 fL (7.4-10.4); Monocytes 4 % (0-10); Myelocyte 2 % (0-0); Neutrophil 64 % (42-75); Nucleated RBC 1 % (0); Platelet Count 306 thou/uL (130-400); Platelet Morphology Comment Appears Adequate; RBC Distribution Width 16.8 % (11.5-14.5); RBC Morphology Normal; Reactive Lymphocytes 1 % (0-10); Red Blood Cell (RBC) Count 3.61 mill/uL (4.70-6.10); White Blood Cell (WBC) Count 11.5 thou/uL (4.8-10.8)
[2021-10-11] MEDS ORDERED: Lantus 1000 UNITS/10 ML VIAL SC SCH (06:47)
[2021-10-11] MEDS: Mometasone 100 MCG/Formoterol 5 MCG 120 PUFF INHALER INH SCH ×2 (07:04→18:55)
[2021-10-11] MEDS: Potassium Bicarbonate/Cit Ac 20 MEQ TAB PER TUBE SCH (08:41)
[2021-10-11] MEDS: Midodrine HCl 5 MG TAB PER TUBE SCH ×3 (08:46→20:35)
[2021-10-11] MEDS: Lorazepam 1 MG TAB PER TUBE SCH ×3 (08:46→20:35)
[2021-10-11] MEDS: methylPREDNISolone Sod Succ 40 MG VIAL IVP SCH (08:46)
[2021-10-11] MEDS: busPIRone HCl 10 MG TAB PER TUBE SCH ×2 (08:46→20:35)
[2021-10-11] MEDS: Senokot S 8.6-50 MG TAB PER TUBE SCH ×2 (08:46→20:35)
[2021-10-11] MEDS: Polyethylene Glycol 3350 17 GM Packet PER TUBE SCH (08:46)
[2021-10-11] MEDS: Lansoprazole 3 MG/ML ORAL SUSPENSION PER TUBE SCH ×2 (08:47→21:51)
[2021-10-11] MEDS: Enoxaparin Sodium 40 MG/0.4 ML SYRINGE SC SCH (08:47)
[2021-10-11] MEDS: Sodium Chloride 0.65% Nasal 44 ML BOT EA NARE SCH ×3 (08:48→20:37)
[2021-10-11] MEDS ORDERED: Norepinephrine 8 MG/0.9% NS 250 ML IVPB PRN (11:48)
[2021-10-11] MEDS: Atorvastatin Calcium 20 MG TAB PER TUBE SCH (20:35)
[2021-10-12] MEDS: HumaLOG 300 UNITS/3 ML VIAL SC PRN ×4 (04:04→22:43)
[2021-10-12 05:23] LABS: #Basophils 0.1 thou/uL (0.0-0.2); #Eosinphils 0.5 thou/uL (0.0-0.7); #Lymphocytes 4.6 thou/uL (1.20-3.40); #Monocytes 1.1 thou/uL (0.11-0.59); #Neutrophils 7.8 thou/uL (1.40-6.50); %Basophils 0.5 % (0.0-1.0); %Eosinophils 3.7 % (0.0-10.0); %Lymphocytes 32.9 % (21.0-51.0); %Monocytes 7.8 % (0.0-10.0); %Neutrophils 55.2 % (42.0-75.0); Hemoglobin 11.4 g/dL (14.0-18.0); Mean Corpuscular HGB CONC 32.4 g/dL (32.0-36.0); Mean Corpuscular Hemoglobin 32.5 pg (27.0-31.0); Mean Platelet Volume 7.6 fL (7.4-10.4); Platelet Count 316 thou/uL (130-400); RBC Distribution Width 16.8 % (11.5-14.5); Red Blood Cell (RBC) Count 3.51 mill/uL (4.70-6.10); White Blood Cell (WBC) Count 14.1 thou/uL (4.8-10.8)
[2021-10-12] MEDS: Ondansetron PF 4 MG/2 ML Vial IVP PRN (05:42)
[2021-10-12 05:47] LABS: Anion Gap 13 mmol/L (10-20); BUN (Urea Nitrogen) 23 mg/dL (8.4-25.7); Calc. Creatinine Clearance 132 mL/min (70-130); Calcium 9.1 mg/dL (7.8-10.44); Carbon Dioxide 32 mmol/L (23-31); Chloride 97 mmol/L (98-107); Glucose 194 mg/dL (80-115); Magnesium 2.2 mg/dL (1.6-2.6); Sodium 138 mmol/L (136-145)
[2021-10-12] MEDS ORDERED: Lantus 1000 UNITS/10 ML VIAL SC SCH (06:43)
[2021-10-12] MEDS: Mometasone 100 MCG/Formoterol 5 MCG 120 PUFF INHALER INH SCH ×2 (07:05→19:05)
[2021-10-12] MEDS: busPIRone HCl 10 MG TAB PER TUBE SCH ×2 (08:03→20:45)
[2021-10-12] MEDS: Senokot S 8.6-50 MG TAB PER TUBE SCH ×2 (08:05→20:45)
[2021-10-12] MEDS: Enoxaparin Sodium 40 MG/0.4 ML SYRINGE SC SCH (08:05)
[2021-10-12] MEDS: Polyethylene Glycol 3350 17 GM Packet PER TUBE SCH (08:05)
[2021-10-12] MEDS: Midodrine HCl 5 MG TAB PER TUBE SCH ×4 (08:05→20:45)
[2021-10-12] MEDS: Lorazepam 1 MG TAB PER TUBE SCH ×3 (08:06→20:45)
[2021-10-12] MEDS: methylPREDNISolone Sod Succ 40 MG VIAL IVP SCH (08:06)
[2021-10-12] MEDS: Sodium Chloride 0.65% Nasal 44 ML BOT EA NARE SCH ×3 (08:07→20:46)
[2021-10-12] MEDS: Potassium Bicarbonate/Cit Ac 20 MEQ TAB PER TUBE SCH (08:07)
[2021-10-12] MEDS: Lansoprazole 3 MG/ML ORAL SUSPENSION PER TUBE SCH ×2 (08:18→20:46)
[2021-10-12 14:11] VITALS: BMI 25.9
[2021-10-12] MEDS: Lorazepam 2 MG/ML VIAL SLOW IVP PRN (19:00)
[2021-10-12] MEDS: Atorvastatin Calcium 20 MG TAB PER TUBE SCH (20:45)
[2021-10-13] MEDS: HumaLOG 300 UNITS/3 ML VIAL SC PRN ×4 (05:19→21:04)
[2021-10-13 05:30] LABS: #Basophils 0.1 thou/uL (0.0-0.2); #Eosinphils 0.4 thou/uL (0.0-0.7); #Lymphocytes 3.9 thou/uL (1.20-3.40); #Monocytes 1.1 thou/uL (0.11-0.59); #Neutrophils 9.8 thou/uL (1.40-6.50); %Basophils 0.5 % (0.0-1.0); %Eosinophils 2.5 % (0.0-10.0); %Lymphocytes 25.4 % (21.0-51.0); %Monocytes 7.5 % (0.0-10.0); %Neutrophils 64.2 % (42.0-75.0); Mean Corpuscular HGB CONC 32.9 g/dL (32.0-36.0); Mean Corpuscular Hemoglobin 32.9 pg (27.0-31.0); Mean Platelet Volume 7.7 fL (7.4-10.4); Platelet Count 321 thou/uL (130-400); RBC Distribution Width 16.8 % (11.5-14.5); Red Blood Cell (RBC) Count 3.34 mill/uL (4.70-6.10); White Blood Cell (WBC) Count 15.3 thou/uL (4.8-10.8)
[2021-10-13 05:44] LABS: Anion Gap 16 mmol/L (10-20); BUN (Urea Nitrogen) 23 mg/dL (8.4-25.7); Calc. Creatinine Clearance 112 mL/min (70-130); Calcium 8.9 mg/dL (7.8-10.44); Carbon Dioxide 30 mmol/L (23-31); Chloride 98 mmol/L (98-107); Glucose 192 mg/dL (80-115); Magnesium 2.2 mg/dL (1.6-2.6); Potassium 3.9 mmol/L (3.5-5.1); Sodium 140 mmol/L (136-145)
[2021-10-13] MEDS ORDERED: Lantus 1000 UNITS/10 ML VIAL SC SCH (07:09)
[2021-10-13 07:13] LABS: Base Excess (BEa) 7.7 mEq/L (-2.0 to +3.0); CO2 Tension 48.2 mmHg (35.0-45.0); Calcium, Ionized (arterial) 1.19 mmol/L (1.12-1.30); Carboxyhemoglobin (COHb) 1.5 gm% (0.0-3.0); Hemoglobin (Hb) 14.1 g/dL (14.0-18.0); O2 Tension (PaO2), arterial 89.3 mmHg (> 80.0); Potassium - ABG Lab 3.98 mmol/L (3.70-5.30); pH, Arterial 7.45 (7.35-7.45)
[2021-10-13] MEDS: Mometasone 100 MCG/Formoterol 5 MCG 120 PUFF INHALER INH SCH ×2 (08:11→18:53)
[2021-10-13 08:13] LABS: Puncture Site RRA
[2021-10-13] MEDS: Potassium Bicarbonate/Cit Ac 20 MEQ TAB PER TUBE SCH (08:19)
[2021-10-13] MEDS: Midodrine HCl 5 MG TAB PER TUBE SCH ×3 (08:19→20:46)
[2021-10-13] MEDS: busPIRone HCl 10 MG TAB PER TUBE SCH ×2 (09:16→20:38)
[2021-10-13] MEDS: Lorazepam 1 MG TAB PER TUBE SCH ×3 (09:17→20:39)
[2021-10-13] MEDS: Lansoprazole 3 MG/ML ORAL SUSPENSION PER TUBE SCH ×2 (09:17→20:39)
[2021-10-13] MEDS: Enoxaparin Sodium 40 MG/0.4 ML SYRINGE SC SCH (09:17)
[2021-10-13] MEDS: methylPREDNISolone Sod Succ 40 MG VIAL IVP SCH (09:17)
[2021-10-13] MEDS: Senokot S 8.6-50 MG TAB PER TUBE SCH ×2 (09:18→20:40)
[2021-10-13] MEDS: Sodium Chloride 0.65% Nasal 44 ML BOT EA NARE SCH ×3 (09:18→20:41)
[2021-10-13] MEDS: Polyethylene Glycol 3350 17 GM Packet PER TUBE SCH (09:25)
[2021-10-13] MEDS: Atorvastatin Calcium 20 MG TAB PER TUBE SCH (20:38)
[2021-10-14] MEDS: HumaLOG 300 UNITS/3 ML VIAL SC PRN ×3 (04:00→16:33)
[2021-10-14 04:31] LABS: #Basophils 0.1 thou/uL (0.0-0.2); #Eosinphils 0.5 thou/uL (0.0-0.7); #Lymphocytes 4.5 thou/uL (1.20-3.40); #Monocytes 1.2 thou/uL (0.11-0.59); #Neutrophils 6.6 thou/uL (1.40-6.50); %Basophils 0.5 % (0.0-1.0); %Eosinophils 3.6 % (0.0-10.0); %Lymphocytes 34.9 % (21.0-51.0); %Monocytes 9.1 % (0.0-10.0); %Neutrophils 51.9 % (42.0-75.0); Mean Corpuscular HGB CONC 32.3 g/dL (32.0-36.0); Mean Corpuscular Hemoglobin 32.8 pg (27.0-31.0); Mean Platelet Volume 7.8 fL (7.4-10.4); Platelet Count 337 thou/uL (130-400); RBC Distribution Width 16.7 % (11.5-14.5); Red Blood Cell (RBC) Count 3.36 mill/uL (4.70-6.10); White Blood Cell (WBC) Count 12.8 thou/uL (4.8-10.8)
[2021-10-14 04:51] LABS: Anion Gap 13 mmol/L (10-20); BUN (Urea Nitrogen) 21 mg/dL (8.4-25.7); Calc. Creatinine Clearance 114 mL/min (70-130); Calcium 9.2 mg/dL (7.8-10.44); Carbon Dioxide 32 mmol/L (23-31); Chloride 98 mmol/L (98-107); Glucose 210 mg/dL (80-115); Magnesium 2.1 mg/dL (1.6-2.6); Sodium 139 mmol/L (136-145)
[2021-10-14 07:52] LABS: Actual Bicarbonate (HCO3a) 33.3 mEq/L (22-28); Base Excess (BEa) 8.4 mEq/L (-2.0 to +3.0); CO2 Tension 47.1 mmHg (35.0-45.0); Calcium, Ionized (arterial) 1.17 mmol/L (1.12-1.30); Carboxyhemoglobin (COHb) 1.5 gm% (0.0-3.0); Hemoglobin (Hb) 12.5 g/dL (14.0-18.0); O2 Tension (PaO2), arterial 86.4 mmHg (> 80.0); Potassium - ABG Lab 3.98 mmol/L (3.70-5.30); pH, Arterial 7.47 (7.35-7.45)
[2021-10-14] MEDS: Mometasone 100 MCG/Formoterol 5 MCG 120 PUFF INHALER INH SCH ×2 (08:06→18:53)
[2021-10-14 08:08] LABS: Puncture Site RRA
[2021-10-14 08:09] LABS: ALV-art Gradient 175.575 mmHg (0-20)
[2021-10-14] MEDS: Potassium Bicarbonate/Cit Ac 20 MEQ TAB PER TUBE SCH (08:15)
[2021-10-14] MEDS: Enoxaparin Sodium 40 MG/0.4 ML SYRINGE SC SCH (08:16)
[2021-10-14] MEDS: busPIRone HCl 10 MG TAB PER TUBE SCH ×2 (08:16→20:35)
[2021-10-14] MEDS: Midodrine HCl 5 MG TAB PER TUBE SCH ×3 (08:16→20:37)
[2021-10-14] MEDS: methylPREDNISolone Sod Succ 40 MG VIAL IVP SCH (08:17)
[2021-10-14] MEDS: Senokot S 8.6-50 MG TAB PER TUBE SCH ×2 (08:17→20:38)
[2021-10-14] MEDS: Lorazepam 1 MG TAB PER TUBE SCH ×3 (08:18→20:36)
[2021-10-14] MEDS: Polyethylene Glycol 3350 17 GM Packet PER TUBE SCH (08:18)
[2021-10-14] MEDS: Lansoprazole 3 MG/ML ORAL SUSPENSION PER TUBE SCH ×2 (08:18→20:36)
[2021-10-14] MEDS: Sodium Chloride 0.65% Nasal 44 ML BOT EA NARE SCH ×3 (08:19→20:39)
[2021-10-14] MEDS: Lantus 1000 UNITS/10 ML VIAL SC SCH (10:27)
[2021-10-14 14:58] VITALS: BP 80/54
[2021-10-14] MEDS: Atorvastatin Calcium 20 MG TAB PER TUBE SCH (20:35)
[2021-10-15 03:58] LABS: #Basophils 0.1 thou/uL (0.0-0.2); #Eosinphils 0.5 thou/uL (0.0-0.7); #Lymphocytes 3.4 thou/uL (1.20-3.40); #Monocytes 1.2 thou/uL (0.11-0.59); #Neutrophils 9.5 thou/uL (1.40-6.50); %Basophils 0.7 % (0.0-1.0); %Eosinophils 3.7 % (0.0-10.0); %Monocytes 8.3 % (0.0-10.0); %Neutrophils 64.4 % (42.0-75.0); Hemoglobin 11.7 g/dL (14.0-18.0); Mean Corpuscular HGB CONC 32.9 g/dL (32.0-36.0); Mean Corpuscular Hemoglobin 32.7 pg (27.0-31.0); Mean Corpuscular Volume 99.4 fL (78.0-98.0); Platelet Count 355 thou/uL (130-400); RBC Distribution Width 16.4 % (11.5-14.5); Red Blood Cell (RBC) Count 3.58 mill/uL (4.70-6.10); White Blood Cell (WBC) Count 14.8 thou/uL (4.8-10.8)
[2021-10-15 04:09] LABS: Anion Gap 13 mmol/L (10-20); BUN (Urea Nitrogen) 19 mg/dL (8.4-25.7); Calc. Creatinine Clearance 132 mL/min (70-130); Calcium 9.3 mg/dL (7.8-10.44); Carbon Dioxide 31 mmol/L (23-31); Chloride 98 mmol/L (98-107); Glucose 156 mg/dL (80-115); Potassium 3.9 mmol/L (3.5-5.1); Sodium 138 mmol/L (136-145)
[2021-10-15] MEDS: HumaLOG 300 UNITS/3 ML VIAL SC PRN ×3 (04:53→16:11)
[2021-10-15] MEDS ORDERED: Magnesium 2 GM/50 ML 2 GM in Premix Bag 1 BAG IVPB SCH (06:30)
[2021-10-15] MEDS: Midodrine HCl 5 MG TAB PER TUBE SCH ×2 (06:44→14:59)
[2021-10-15 07:11] LABS: Actual Bicarbonate (HCO3a) 33.8 mEq/L (22-28); Base Excess (BEa) 8.8 mEq/L (-2.0 to +3.0); CO2 Tension 46.9 mmHg (35.0-45.0); Calcium, Ionized (arterial) 1.17 mmol/L (1.12-1.30); Carboxyhemoglobin (COHb) 1.4 gm% (0.0-3.0); Potassium - ABG Lab 3.89 mmol/L (3.70-5.30); pH, Arterial 7.48 (7.35-7.45)
[2021-10-15 07:18] LABS: O2 Tension (PaO2), arterial 58.6 mmHg (> 80.0); Puncture Site RRA
[2021-10-15 07:19] LABS: ALV-art Gradient 203.625 mmHg (0-20)
[2021-10-15] MEDS: busPIRone HCl 10 MG TAB PER TUBE SCH (07:19)
[2021-10-15] MEDS: Lorazepam 1 MG TAB PER TUBE SCH ×2 (07:19→14:56)
[2021-10-15] MEDS: Mometasone 100 MCG/Formoterol 5 MCG 120 PUFF INHALER INH SCH (07:20)
[2021-10-15] MEDS: Morphine 4 MG/ML VIAL SLOW IVP PRN ×3 (07:24→18:01)
[2021-10-15] MEDS: methylPREDNISolone Sod Succ 40 MG VIAL IVP SCH (08:30)
[2021-10-15] MEDS: Enoxaparin Sodium 40 MG/0.4 ML SYRINGE SC SCH (08:30)
[2021-10-15] MEDS: Lantus 1000 UNITS/10 ML VIAL SC SCH (08:31)
[2021-10-15] MEDS: Senokot S 8.6-50 MG TAB PER TUBE SCH (08:31)
[2021-10-15] MEDS: Polyethylene Glycol 3350 17 GM Packet PER TUBE SCH (08:31)
[2021-10-15] MEDS: Potassium Bicarbonate/Cit Ac 20 MEQ TAB PER TUBE SCH (08:31)
[2021-10-15] MEDS: Sodium Chloride 0.65% Nasal 44 ML BOT EA NARE SCH ×2 (08:32→14:57)
[2021-10-15] MEDS: Lansoprazole 3 MG/ML ORAL SUSPENSION PER TUBE SCH (08:32)
[2021-10-15 16:20] VITALS: TEMP 98.4
[2021-10-15] MEDS ORDERED: Norepinephrine 8 MG/0.9% NS 250 ML ONE (18:59)
== END 2021-10-15 18:50 | DRG 4 ==
LOC: ERS 17:19 → T4-B 19:45 → IMCU/EMU 08-18 15:14 → T4-B 08-31 18:15 → 2NO 09-06 12:54 → CCU 09-11 05:48 → SURG B 09-23 22:08 → T4-A 09-26 22:45 → IMCU/EMU 09-30 11:08 → CCU 09-30 13:00
PROVIDERS: ADMIT Emergency Medicine; ATTEND Emergency Medicine
PROC: 8E0ZXY6 Isolation (ICD-10-PCS; 2021-08-16)
PROC: XW033E5 Introduction of Remdesivir Anti-infective into Peripheral Vein, Percutaneous Approach, New Technology Group 5 (ICD-10-PCS; 2021-08-18)
PROC: XW0DXM6 Introduction of Baricitinib into Mouth and Pharynx, External Approach, New Technology Group 6 (ICD-10-PCS; 2021-08-19)
PROC: 0W9B30Z Drainage of Left Pleural Cavity with Drainage Device, Percutaneous Approach (ICD-10-PCS; 2021-09-09)
PROC: 5A1955Z Respiratory Ventilation, Greater than 96 Consecutive Hours (ICD-10-PCS; 2021-09-12)
PROC: 0BH17EZ Insertion of Endotracheal Airway into Trachea, Via Natural or Artificial Opening (ICD-10-PCS; 2021-09-12)
PROC: 3E033XZ Introduction of Vasopressor into Peripheral Vein, Percutaneous Approach (ICD-10-PCS; 2021-09-12)
PROC: 0D9770Z Drainage of Stomach, Pylorus with Drainage Device, Via Natural or Artificial Opening (ICD-10-PCS; 2021-09-12)
PROC: 093K7ZZ Control Bleeding in Nasal Mucosa and Soft Tissue, Via Natural or Artificial Opening (ICD-10-PCS; 2021-09-29)
PROC: 0W9B30Z Drainage of Left Pleural Cavity with Drainage Device, Percutaneous Approach (ICD-10-PCS; 2021-09-30)
PROC: 5A1955Z Respiratory Ventilation, Greater than 96 Consecutive Hours (ICD-10-PCS; 2021-09-30)
PROC: 0BH18EZ Insertion of Endotracheal Airway into Trachea, Via Natural or Artificial Opening Endoscopic (ICD-10-PCS; 2021-09-30)
PROC: 02HV33Z Insertion of Infusion Device into Superior Vena Cava, Percutaneous Approach (ICD-10-PCS; 2021-09-30)
PROC: B548ZZA Ultrasonography of Superior Vena Cava, Guidance (ICD-10-PCS; 2021-09-30)
PROC: 0DH67UZ Insertion of Feeding Device into Stomach, Via Natural or Artificial Opening (ICD-10-PCS; 2021-10-01)
PROC: 3E0G76Z Introduction of Nutritional Substance into Upper GI, Via Natural or Artificial Opening (ICD-10-PCS; 2021-10-01)
PROC: 0B113F4 Bypass Trachea to Cutaneous with Tracheostomy Device, Percutaneous Approach (ICD-10-PCS; principal; 2021-10-04)
PROC: 0DH63UZ Insertion of Feeding Device into Stomach, Percutaneous Approach (ICD-10-PCS; 2021-10-04)
DX: A41.89 Other specified sepsis (principal); U07.1 COVID-19; J12.82 Pneumonia due to coronavirus disease 2019; J80 Acute respiratory distress syndrome; I26.99 Other pulmonary embolism without acute cor pulmonale; J86.9 Pyothorax without fistula; R57.8 Other shock; N17.9 Acute kidney failure, unspecified; E22.2 Syndrome of inappropriate secretion of antidiuretic hormone; J90 Pleural effusion, not elsewhere classified; G72.81 Critical illness myopathy; E27.40 Unspecified adrenocortical insufficiency; I10 Essential (primary) hypertension; E11.65 Type 2 diabetes mellitus with hyperglycemia; E78.5 Hyperlipidemia, unspecified; K21.9 Gastro-esophageal reflux disease without esophagitis; M10.9 Gout, unspecified; E86.0 Dehydration; E66.9 Obesity, unspecified; D50.9 Iron deficiency anemia, unspecified; E87.5 Hyperkalemia; K59.00 Constipation, unspecified; T38.0X5A Adverse effect of glucocorticoids and synthetic analogues, initial encounter; J98.2 Interstitial emphysema; F32.A Depression, unspecified; F41.9 Anxiety disorder, unspecified; D69.6 Thrombocytopenia, unspecified; B95.4 Other streptococcus as the cause of diseases classified elsewhere; E11.649 Type 2 diabetes mellitus with hypoglycemia without coma; G47.00 Insomnia, unspecified; E87.6 Hypokalemia; R04.0 Epistaxis; Z79.84 Long term (current) use of oral hypoglycemic drugs; Z79.899 Other long term (current) drug therapy; Z98.890 Other specified postprocedural states; Z87.891 Personal history of nicotine dependence; Z85.72 Personal history of non-Hodgkin lymphomas; Z68.27 Body mass index [BMI] 27.0-27.9, adult; Z78.1 Physical restraint status; R33.9 Retention of urine, unspecified
CPT/HCPCS: 0240U; 31624; 36415; 36416; 36600; 71045; 71250; 71275; 74018; 80048; 80053; 80076; 80202; 82533; 82570; 82607; 82746; 82805; 83540; 83550; 83605; 83735; 83880; 83930; 83935; 84145; 84300; 84443; 84484; 85007; 85025; 85027; 85379; 86140; 87040; 87070; 87076; 87077; 87186; 87205; 87449; 87899; 93005; 93010; 93306; 94002; 94003; 94640; 94660; 94664; 94760; 96372; 96374; 96375; C9113; J0248; J0295; J0690; J0692; J1100; J1650; J1720; J1815; J1940; J2060; J2185; J2248; J2250; J2270; J2405; J2543; J2704; J2920; J3010; J3370; J3475; J3480; J3490; J7030; J7050; J7060; J7070; J7120; J7512; J7608; J7620; J8540; P9045; P9047; Q0162; Q9967; S0028

== ENCOUNTER 2022-01-04 08:07 | Emergency (ER) | payer MEDICARE, SELFPAY ==
[2022-01-04] MEDS ORDERED: Oxymetazoline HCl 0.05% (30 ML BOT) ONE (08:16)
[2022-01-04 08:58] LABS: #Basophils 0.1 thou/uL (0.0-0.2); #Eosinphils 0.3 thou/uL (0.0-0.7); #Lymphocytes 2.9 thou/uL (1.20-3.40); #Neutrophils 9.1 thou/uL (1.40-6.50); %Basophils 0.5 % (0.0-1.0); %Lymphocytes 21.5 % (21.0-51.0); %Monocytes 7.2 % (0.0-10.0); %Neutrophils 68.8 % (42.0-75.0); Hemoglobin 12.4 g/dL (14.0-18.0); Mean Corpuscular Hemoglobin 29.1 pg (27.0-31.0); Mean Corpuscular Volume 91.1 fL (78.0-98.0); Mean Platelet Volume 6.6 fL (7.4-10.4); Platelet Count 392 thou/uL (130-400); RBC Distribution Width 16.9 % (11.5-14.5); Red Blood Cell (RBC) Count 4.27 mill/uL (4.70-6.10); White Blood Cell (WBC) Count 13.3 thou/uL (4.8-10.8)
[2022-01-04 09:16] LABS: ALT (SGPT) 14 U/L (8-55); AST (SGOT) 14 U/L (5-34); Albumin 3.9 g/dL (3.4-4.8); Alkaline Phosphatase 44 U/L (40-110); Anion Gap 14 mmol/L (10-20); BUN (Urea Nitrogen) 28 mg/dL (8.4-25.7); Bilirubin, Total 0.2 mg/dL (0.2-1.2); Calc. Creatinine Clearance 0 mL/min (70-130); Calcium 9.8 mg/dL (7.8-10.44); Carbon Dioxide 25 mmol/L (23-31); Chloride 103 mmol/L (98-107); Glucose 162 mg/dL (80-115); Potassium 4.3 mmol/L (3.5-5.1); Protein, Total 7.9 g/dL (5.8-8.1); Sodium 138 mmol/L (136-145)
== END 2022-01-04 16:02 | disposition home or self-care (01) ==
LOC: ERS 08:07
DX: R04.0 Epistaxis (principal); R00.0 Tachycardia, unspecified; K21.9 Gastro-esophageal reflux disease without esophagitis; E11.9 Type 2 diabetes mellitus without complications; E78.5 Hyperlipidemia, unspecified; I10 Essential (primary) hypertension; Z87.891 Personal history of nicotine dependence; Z79.84 Long term (current) use of oral hypoglycemic drugs; Z79.899 Other long term (current) drug therapy
CPT/HCPCS: 80053; 85025; 99285

== ENCOUNTER 2022-03-16 11:08 | Outpatient (CLI) | payer MEDICARE | END 2022-03-16 11:09 | disposition home or self-care (01) | LOC: RAD 11:08 | PROVIDERS: ATTEND Internal Medicine Critical Care Medicine | DX: R06.09 Other forms of dyspnea (principal); R09.89 Other specified symptoms and signs involving the circulatory and respiratory systems | CPT/HCPCS: 71046 ==

== ENCOUNTER 2022-06-20 12:55 | Outpatient (CLI) | payer OTHER | END 2022-06-20 12:56 | disposition home or self-care (01) | LOC: RAD 12:55 | PROVIDERS: ATTEND Internal Medicine Critical Care Medicine | DX: R06.00 Dyspnea, unspecified (principal); J98.6 Disorders of diaphragm | CPT/HCPCS: 71046 ==

== ENCOUNTER 2022-12-05 11:40 | Inpatient (IN) | payer MEDICARE ==
[2022-12-05 13:06] LABS: #Basophils 0.1 thou/uL (0.0-0.2); #Eosinphils 0.2 thou/uL (0.0-0.7); #Lymphocytes 5.2 thou/uL (1.20-3.40); #Monocytes 1.5 thou/uL (0.11-0.59); %Basophils 0.7 % (0.0-1.0); %Eosinophils 1.6 % (0.0-10.0); %Lymphocytes 34.6 % (21.0-51.0); %Neutrophils 53.1 % (42.0-75.0); Mean Corpuscular HGB CONC 31.2 g/dL (32.0-36.0); Mean Corpuscular Hemoglobin 28.6 pg (27.0-31.0); Mean Corpuscular Volume 91.6 fl (78.0-98.0); Mean Platelet Volume 7.6 fL (7.4-10.4); Platelet Count 349 10x3/uL (130-400); RBC Distribution Width 13.9 % (11.5-14.5); Red Blood Cell (RBC) Count 5.24 mill/uL (4.70-6.10); White Blood Cell (WBC) Count 15.1 10x3/uL (4.8-10.8)
[2022-12-05 13:25] LABS: ALT (SGPT) 15 U/L (8-55); AST (SGOT) 14 U/L (5-34); Albumin 4.2 g/dL (3.4-4.8); Alkaline Phosphatase 55 U/L (40-110); Anion Gap 18 mmol/L (10-20); BUN (Urea Nitrogen) 35 mg/dL (8.4-25.7); Bilirubin, Total 0.3 mg/dL (0.2-1.2); Calc. Creatinine Clearance 0 mL/min (70-130); Calcium 9.3 mg/dL (7.8-10.44); Carbon Dioxide 19 mmol/L (23-31); Chloride 103 mmol/L (98-107); Estimated GFR 38; Globulin 3.6 g/dL (2.4-3.5); Glucose 121 mg/dL (80-115); Protein, Total 7.8 g/dL (5.8-8.1); Sodium 134 mmol/L (136-145)
[2022-12-05 13:31] LABS: Potassium 6.4 mmol/L (3.5-5.1)
[2022-12-05] MEDS ORDERED: Sodium Bicarb 50 MEQ/50 ML VIAL ONE (13:42)
[2022-12-05] MEDS ORDERED: Dextrose 50% Abboject 50 ML SYRINGE ONE (13:42)
[2022-12-05] MEDS ORDERED: Calcium Gluc 4.6 MEQ/10 ML (100 MG/ML) ONE ×2 (13:42→13:46)
[2022-12-05] MEDS ORDERED: Insulin Regular 300 UNITS/3 ML VIAL ONE (13:42)
[2022-12-05] MEDS ORDERED: Albuterol 2.5 MG/0.5 ML NEB ONE (13:42)
[2022-12-05] MEDS ORDERED: LOKELMA 10 GM PACKET PO SCH ×2 (15:30→21:00)
[2022-12-05] MEDS ORDERED: Sodium Chloride 0.9% 500 ML IV SCH (15:30)
[2022-12-05] MEDS ORDERED: Dextrose 5% in Water 1,000 ML IV PRN (16:28)
[2022-12-05] MEDS ORDERED: HumaLOG 300 UNITS/3 ML VIAL SC PRN ×2 (16:28)
[2022-12-05] MEDS ORDERED: Dextrose 50% Abboject 50 ML SYRINGE SLOW IVP PRN (16:28)
[2022-12-05 17:12] LABS: BUN (Urea Nitrogen) 35 mg/dL (8.4-25.7); Calc. Creatinine Clearance 0 mL/min (70-130); Calcium 9.4 mg/dL (7.8-10.44); Carbon Dioxide 13 mmol/L (23-31); Chloride 106 mmol/L (98-107); Estimated GFR 40; Glucose 88 mg/dL (80-115); Sodium 133 mmol/L (136-145)
[2022-12-05 17:16] LABS: Anion Gap 22 mmol/L (10-20)
[2022-12-05 17:20] LABS: Potassium 7.3 mmol/L (3.5-5.1)
[2022-12-05] MEDS ORDERED: Sodium Chloride 0.9% 1,000 ML IV SCH ×2 (17:45→18:15)
[2022-12-05] MEDS ORDERED: Furosemide 40 MG/4 ML VIAL SLOW IVP SCH (17:45)
[2022-12-05] MEDS ORDERED: Furosemide 40 MG/4 ML VIAL ONE (17:50)
[2022-12-05] MEDS: Sodium Chloride 0.9% 1,000 ML IV SCH (18:30)
[2022-12-05 18:56] LABS: Anion Gap 15 mmol/L (10-20); BUN (Urea Nitrogen) 32 mg/dL (8.4-25.7); Calc. Creatinine Clearance 0 mL/min (70-130); Calcium 9.3 mg/dL (7.8-10.44); Carbon Dioxide 23 mmol/L (23-31); Chloride 104 mmol/L (98-107); Estimated GFR 48; Glucose 65 mg/dL (80-115); Potassium 4.2 mmol/L (3.5-5.1); Sodium 138 mmol/L (136-145)
[2022-12-05 19:34] VITALS: BMI 35.7
[2022-12-05] MEDS ORDERED: Atorvastatin Calcium 20 MG TAB PO SCH (21:00)
[2022-12-05 22:42] LABS: Anion Gap 13 mmol/L (10-20); BUN (Urea Nitrogen) 29 mg/dL (8.4-25.7); Calc. Creatinine Clearance 67 mL/min (70-130); Calcium 8.4 mg/dL (7.8-10.44); Carbon Dioxide 20 mmol/L (23-31); Chloride 107 mmol/L (98-107); Estimated GFR 50; Glucose 163 mg/dL (80-115); Potassium 3.9 mmol/L (3.5-5.1); Sodium 136 mmol/L (136-145)
[2022-12-06 00:13] LABS: Creatinine, Urine 66.12 mg/dL (63-166)
[2022-12-06 06:07] LABS: Hemoglobin 13.4 g/dL (14.0-18.0); Mean Corpuscular HGB CONC 32.1 g/dL (32.0-36.0); Mean Corpuscular Hemoglobin 29.7 pg (27.0-31.0); Mean Corpuscular Volume 92.5 fl (78.0-98.0); Mean Platelet Volume 7.5 fL (7.4-10.4); Platelet Count 260 10x3/uL (130-400); White Blood Cell (WBC) Count 11.2 10x3/uL (4.8-10.8)
[2022-12-06 06:29] LABS: ALT (SGPT) 14 U/L (8-55); AST (SGOT) 25 U/L (5-34); Albumin 3.5 g/dL (3.4-4.8); Alkaline Phosphatase 44 U/L (40-110); Anion Gap 14 mmol/L (10-20); BUN (Urea Nitrogen) 23 mg/dL (8.4-25.7); Bilirubin, Total 0.4 mg/dL (0.2-1.2); Calc. Creatinine Clearance 78 mL/min (70-130); Calcium 8.7 mg/dL (7.8-10.44); Carbon Dioxide 21 mmol/L (23-31); Chloride 110 mmol/L (98-107); Estimated GFR 60; Globulin 3.4 g/dL (2.4-3.5); Glucose 85 mg/dL (80-115); Potassium 4.6 mmol/L (3.5-5.1); Protein, Total 6.9 g/dL (5.8-8.1); Sodium 140 mmol/L (136-145)
[2022-12-06 06:58] LABS: Eosinophils 1 % (0-10); Lymphocytes 26 % (21-51); MDiff Complete? YES; Monocytes 9 % (0-10); Myelocyte 1 % (0-0); Neutrophil 63 % (42-75)
[2022-12-06] MEDS ORDERED: Aspirin 81 mg Enteric Coated Tablet PO SCH (09:00)
[2022-12-06] MEDS: Sodium Chloride 0.9% 1,000 ML IV SCH ×2 (09:02→10:50)
[2022-12-06 11:45] VITALS: BP 137/69; TEMP 98.4
[2022-12-06] MEDS ORDERED: Metoprolol Tartrate 25 MG TAB PO SCH ×2 (11:53→21:00)
[2022-12-06 13:12] LABS: Anion Gap 14 mmol/L (10-20); BUN (Urea Nitrogen) 20 mg/dL (8.4-25.7); Calc. Creatinine Clearance 78 mL/min (70-130); Calcium 8.7 mg/dL (7.8-10.44); Carbon Dioxide 20 mmol/L (23-31); Chloride 110 mmol/L (98-107); Estimated GFR 60; Glucose 141 mg/dL (80-115); Potassium 4.2 mmol/L (3.5-5.1); Sodium 140 mmol/L (136-145)
[2022-12-06] MEDS ORDERED: Metoprolol Tartrate 50 MG TAB PO SCH (21:00)
[2022-12-06] MEDS ORDERED: metFORMIN XR 500 MG TAB PO SCH (21:00)
[2022-12-07] MEDS ORDERED: Allopurinol 100 MG TAB PO SCH (09:00)
== END 2022-12-06 15:30 | disposition home or self-care (01) | DRG 641 ==
LOC: ERS 11:40 → ERHOLD 14:13 → 2NO 19:20
PROVIDERS: ADMIT Student in an Organized Health Care Education/Training Program; ATTEND Student in an Organized Health Care Education/Training Program
DX: E87.5 Hyperkalemia (principal); N17.9 Acute kidney failure, unspecified; E11.9 Type 2 diabetes mellitus without complications; I10 Essential (primary) hypertension; E78.5 Hyperlipidemia, unspecified; I25.10 Atherosclerotic heart disease of native coronary artery without angina pectoris; K21.9 Gastro-esophageal reflux disease without esophagitis; R00.1 Bradycardia, unspecified; J43.9 Emphysema, unspecified; Z98.890 Other specified postprocedural states; Z79.82 Long term (current) use of aspirin; Z79.84 Long term (current) use of oral hypoglycemic drugs; Z79.899 Other long term (current) drug therapy; Z86.711 Personal history of pulmonary embolism; Z87.891 Personal history of nicotine dependence
CPT/HCPCS: 36415; 36416; 71045; 80053; 82550; 82570; 83880; 84484; 84540; 85025; 93005; 93010; 96365; 96375; J0612; J1650; J1815; J1940; J7030; J7050; J7611; J7999

== ENCOUNTER 2023-05-03 10:17 | Outpatient (CLI) | payer MEDICARE ==
[2023-05-03 11:04] LABS: #Basophils 0.1 10x3/uL (0.0-0.2); #Eosinphils 0.3 10x3/uL (0.0-0.5); #Monocytes 0.7 10x3/uL (0.0-1.1); #Neutrophils 5.8 10x3/uL (1.5-8.4); %Basophils 0.6 % (0.0-2.0); %Lymphocytes 32.8 % (18.0-47.0); %Monocytes 6.8 % (0.0-10.0); %Neutrophils 56.4 % (40.0-75.0); Hematocrit 45.6 % (38.8-50.0); Hemoglobin 14.1 g/dL (13.5-17.5); Mean Corpuscular HGB CONC 30.9 g/dL (32.0-36.0); Mean Corpuscular Hemoglobin 25.4 pg (27.0-33.0); Mean Corpuscular Volume 82.2 fl (81.2-95.1); Mean Platelet Volume 9.3 fl (7.4-10.4); Platelet Count 334 10x3/uL (150-450); RBC Distribution Width 18.9 % (11.5-14.5); Red Blood Cell (RBC) Count 5.55 10x6/uL (4.32-5.72); White Blood Cell (WBC) Count 10.3 10x3/uL (3.5-10.5)
[2023-05-03 11:29] LABS: Anion Gap 15 mmol/L (10-20); BUN (Urea Nitrogen) 19 mg/dL (8.4-25.7); Calc. Creatinine Clearance 0 mL/min (70-130); Carbon Dioxide 19 mmol/L (23-31); Chloride 108 mmol/L (98-107); Estimated GFR 63; Glucose 223 mg/dL (80-115); Potassium 4.3 mmol/L (3.5-5.1); Sodium 138 mmol/L (136-145)
== END 2023-05-03 10:18 | disposition home or self-care (01) ==
LOC: LABBT 10:17
PROVIDERS: ATTEND Surgery
DX: Z01.818 Encounter for other preprocedural examination (principal); M79.89 Other specified soft tissue disorders
CPT/HCPCS: 80048; 85025; 93005; 93010

== ENCOUNTER 2023-05-08 07:22 | Day surgery (SDC) | payer MEDICARE ==
[2023-05-03 10:42] VITALS: BMI 33.9
[2023-05-08] MEDS ORDERED: EPINEPHrine 1 MG/ML AMP ONE (09:12)
[2023-05-08] MEDS ORDERED: Bupivacaine 0.25% HCL 30 ML VIAL ONE (09:12)
[2023-05-08] MEDS ORDERED: Lidocaine 2% PF 5 ML VIAL ONE (09:12)
[2023-05-08] MEDS ORDERED: fentaNYL PF 100 MCG/2 ML SYRINGE ONE (09:17)
[2023-05-08] MEDS ORDERED: Albuterol HFA (OR) 200 PUFF INH ONE (09:17)
[2023-05-08] MEDS ORDERED: PROPOFOL 20 ML ONE (09:17)
[2023-05-08] MEDS ORDERED: Famotidine/PF 20 mg/2ml Vial ONE (09:18)
[2023-05-08] MEDS ORDERED: Sodium Chloride 0.9% 100 ML ONE (09:26)
[2023-05-08] MEDS ORDERED: CEFAZOLIN 2 GM VIAL ONE (09:26)
[2023-05-08] MEDS ORDERED: PROPOFOL 200 MG/20 ML VIAL ONE (09:31)
[2023-05-08] MEDS ORDERED: ePHEDrine Sulfate 50 MG/10 ML VIAL ONE (09:31)
[2023-05-08] MEDS ORDERED: Dexamethasone 20 MG/5 ML VIAL ONE (09:31)
[2023-05-08] MEDS ORDERED: Ondansetron PF 4 MG/2 ML Vial ONE (09:31)
[2023-05-08] MEDS ORDERED: Lidocaine 1% PF 5 ML VIAL ONE (09:31)
== END 2023-05-08 11:32 | disposition home or self-care (01) ==
LOC: SDC 07:22
PROVIDERS: ATTEND Surgery
PROC: 0JB50ZZ Excision of Left Neck Subcutaneous Tissue and Fascia, Open Approach (ICD-10-PCS; principal; 2023-05-08)
DX: D17.0 Benign lipomatous neoplasm of skin and subcutaneous tissue of head, face and neck (principal); E11.9 Type 2 diabetes mellitus without complications; E78.5 Hyperlipidemia, unspecified; I10 Essential (primary) hypertension; M10.9 Gout, unspecified; Z87.891 Personal history of nicotine dependence; Z79.899 Other long term (current) drug therapy; Z79.84 Long term (current) use of oral hypoglycemic drugs
CPT/HCPCS: 88304; J0171; J1100; J2001; J2405; J2704; J3490; S0020; S0028

== ENCOUNTER 2023-08-28 08:21 | Outpatient (CLI) | payer MEDICARE | END 2023-08-28 08:22 | disposition home or self-care (01) | LOC: RAD 08:21 | PROVIDERS: ATTEND Internal Medicine Critical Care Medicine | DX: R06.00 Dyspnea, unspecified (principal); J98.4 Other disorders of lung | CPT/HCPCS: 71046 ==

== ENCOUNTER 2023-11-06 11:31 | Emergency (ER) | payer MEDICARE ==
[2023-11-06 13:13] LABS: #Basophils 0.1 thou/uL (0.0-0.2); #Eosinphils 0.4 thou/uL (0.0-0.7); #Monocytes 1.2 thou/uL (0.11-0.59); #Neutrophils 6.7 thou/uL (1.40-6.50); %Basophils 0.6 % (0.0-1.0); %Eosinophils 3.6 % (0.0-10.0); %Lymphocytes 30.2 % (21.0-51.0); %Monocytes 9.9 % (0.0-10.0); %Neutrophils 55.4 % (42.0-75.0); Hematocrit 49.5 % (42.0-52.0); Hemoglobin 15.2 g/dL (14.0-18.0); Mean Corpuscular HGB CONC 30.7 g/dL (32.0-36.0); Mean Corpuscular Hemoglobin 26.9 pg (27.0-31.0); Mean Corpuscular Volume 87.6 fl (78.0-98.0); Mean Platelet Volume 9.4 fL (7.4-10.4); Platelet Count 304 10x3/uL (130-400); RBC Distribution Width 17.5 % (11.5-14.5); Red Blood Cell (RBC) Count 5.65 mill/uL (4.70-6.10); White Blood Cell (WBC) Count 12.1 10x3/uL (4.8-10.8)
[2023-11-06 13:34] LABS: ALT (SGPT) 16 U/L (8-55); AST (SGOT) 22 U/L (5-34); Albumin 4.3 g/dL (3.4-4.8); Alkaline Phosphatase 67 U/L (40-110); Anion Gap 18 mmol/L (10-20); BUN (Urea Nitrogen) 19 mg/dL (8.4-25.7); Bilirubin, Total 0.4 mg/dL (0.2-1.2); Calc. Creatinine Clearance 0 mL/min (70-130); Calcium 9.4 mg/dL (7.8-10.44); Carbon Dioxide 19 mmol/L (23-31); Chloride 104 mmol/L (98-107); Estimated GFR 71; Globulin 4.1 g/dL (2.4-3.5); Glucose 95 mg/dL (80-115); Potassium 4.5 mmol/L (3.5-5.1); Protein, Total 8.4 g/dL (5.8-8.1); Sodium 136 mmol/L (136-145)
== END 2023-11-06 13:50 | disposition home or self-care (01) ==
LOC: ERS 11:31
DX: R00.1 Bradycardia, unspecified (principal); E11.9 Type 2 diabetes mellitus without complications; E78.5 Hyperlipidemia, unspecified; I10 Essential (primary) hypertension; Z87.891 Personal history of nicotine dependence
CPT/HCPCS: 71045; 80053; 85025; 93005; G0237; G0238; G0239; 36415

== ENCOUNTER 2024-05-28 08:50 | Outpatient (CLI) | payer MEDICARE | END 2024-05-28 08:51 | disposition home or self-care (01) | LOC: RAD 08:50 | PROVIDERS: ATTEND Internal Medicine Critical Care Medicine | DX: R06.00 Dyspnea, unspecified (principal); R91.8 Other nonspecific abnormal finding of lung field | CPT/HCPCS: 71046 ==